=== PATIENT | female | born 1945 | race Caucasian/White ===

== ENCOUNTER 2017-01-26 12:43 | Outpatient (CLI) | payer MEDICARE ==
[2017-01-26 14:40] LABS: Mean Platelet Volume 7.8 fL (7.4-10.4); White Blood Cell (WBC) Count 4.9 thou/uL (4.8-10.8)
[2017-01-26 14:42] LABS: Prothrombin Time 18.5 SEC (12.0-14.7)
[2017-01-26 14:51] LABS: Anion Gap 10 mmol/L (10-20); BUN (Urea Nitrogen) 20 mg/dL (9.8-20.1); Calc. Creatinine Clearance 0 mL/min (70-130); Calcium 9.1 mg/dL (7.8-10.44); Carbon Dioxide 27 mmol/L (23-31); Chloride 108 mmol/L (98-107); Estimated GFR-MDRD 73
== END 2017-01-26 12:44 | disposition home or self-care (01) ==
LOC: LABBT 12:43
PROVIDERS: ATTEND Internal Medicine Cardiovascular Disease
DX: Z01.812 Encounter for preprocedural laboratory examination (principal); Z51.81 Encounter for therapeutic drug level monitoring; I48.0 Paroxysmal atrial fibrillation; Z79.01 Long term (current) use of anticoagulants
CPT/HCPCS: 80048; 85027; 85610

== ENCOUNTER 2017-01-28 06:47 | Day surgery (SDC) | payer MEDICARE ==
[2017-01-26 13:08] VITALS: BMI 35.2
[2017-01-28] MEDS ORDERED: Diprivan 40 ML ONE (08:20)
[2017-01-28] MEDS ORDERED: Propofol 200 MG/20 ML VIAL ONE (09:12)
[2017-01-28] MEDS ORDERED: Furosemide 40 MG/4 ML VIAL ONE (09:28)
== END 2017-01-28 10:34 | disposition home or self-care (01) ==
LOC: CCL 06:47
PROVIDERS: ATTEND Internal Medicine Cardiovascular Disease
DX: I48.0 Paroxysmal atrial fibrillation (principal); I10 Essential (primary) hypertension; G25.81 Restless legs syndrome; E78.00 Pure hypercholesterolemia, unspecified; Z88.0 Allergy status to penicillin; Z88.1 Allergy status to other antibiotic agents; Z88.8 Allergy status to other drugs, medicaments and biological substances; Z79.82 Long term (current) use of aspirin; Z79.899 Other long term (current) drug therapy; Z90.49 Acquired absence of other specified parts of digestive tract; Z90.710 Acquired absence of both cervix and uterus; Z96.652 Presence of left artificial knee joint; Z96.1 Presence of intraocular lens; Z98.890 Other specified postprocedural states; Z85.820 Personal history of malignant melanoma of skin
CPT/HCPCS: 92960; 93312; 96374; J1940; J2704

== ENCOUNTER 2017-02-07 08:58 | Outpatient (CLI) | payer MEDICARE ==
--- NOTE | 2017-02-07 12:16 | MMO ---
BILATERAL DIGITAL SCREENING MAMMOGRAMS: Date: 02/07/17 This patient's mammogram was interpreted with the assistance of computer-aided detection. Comparison made with exams of 07/23/15, 06/26/14, and 05/01/13. FINDINGS: There are mild scattered fibroglandular densities with benign-appearing calcifications. No suspiciou s masses or calcifications are seen. IMPRESSION: BIRADS 2: Benign Finding(s) Return to annual mammographic screening. POS: [facility]
== END 2017-02-07 08:59 | disposition home or self-care (01) ==
LOC: MAMMO 08:58
PROVIDERS: ATTEND Internal Medicine
DX: Z12.31 Encounter for screening mammogram for malignant neoplasm of breast (principal)
CPT/HCPCS: 77067; G0202

== ENCOUNTER 2017-09-07 12:36 | Outpatient (CLI) | payer MEDICARE | END 2017-09-07 12:37 | disposition home or self-care (01) | LOC: BICMAMMO 12:36 | PROVIDERS: ATTEND Family Medicine | DX: Z13.820 Encounter for screening for osteoporosis (principal); M81.0 Age-related osteoporosis without current pathological fracture; M85.852 Other specified disorders of bone density and structure, left thigh | CPT/HCPCS: 77080 ==

== ENCOUNTER 2017-10-05 07:30 | Day surgery (SDC) | payer MEDICARE ==
[2017-10-04 12:00] VITALS: BMI 32.3
--- NOTE | 2017-10-05 00:45 | HP ---
SHORT STAY HISTORY AND PHYSICAL DATE OF ADMISSION: 10/05/2017 HISTORY OF PRESENT ILLNESS: This is a 72-year-old female comes for a colonoscopy because of history of colon polyp from before and also has history of intermittent diarrhea. The patient had two colono scopies in the past. The last one was in 2006. She had 2 colon polyps removed at that time. The pa suhas did not come back for a colonoscopy afterwards. The patient has history of diarrhea off and on . The diarrhea is intermittent. The stools are watery and has had rectal bleeding. She also had ab dominal bloating, abdominal swelling. She comes for a colonoscopy because of history of colon polyp and also diarrhea. ALLERGIES: None. SOCIAL HISTORY: The patient does not smoke. No history of any alcohol abuse. MEDICAL ILLNESSES: 1. Hypertension. 2. Atrial fibrillation. 3. Osteoarthritis. 4. Colon polyp. 5. Hysterectomy. 6. Appendectomy. 7. Cholecystectomy. 8. Left knee replacements. PHYSICAL EXAMINATION: VITAL SIGNS: Pulse is 70, blood pressure 150/80. HEENT: Conjunctivae clear. CARDIOVASCULAR SYSTEM: First and second heart sounds normal. LUNGS: Clear to auscultation. ABDOMEN: Soft to palpate. No organomegaly. No tenderness. No masses. ADMITTING DIAGNOSES: 1. Colon polyp. 2. Intermittent diarrhea. PLAN: Colonoscopy.
--- NOTE | 2017-10-05 12:23 | OP ---
DATE OF PROCEDURE: 10/05/2017 SURGEON: Silva Colin M.D. OPERATIVE PROCEDURE: 1. Colonoscopy with biopsy. 2. Colonoscopy with polypectomy. PREOPERATIVE DIAGNOSES: 1. Colon polyp. 2. Intermittent diarrhea. POSTOPERATIVE DIAGNOSES: 1. Sessile polyp ascending colon x2. 2. Sessile polyp sigmoid colon. 3. No colitis seen. The exam was done to the terminal ileum. PROCEDURE NOTE: The patient was placed on her left lateral position and was given sedation by Anesth esia Department. A rectal exam was done before the scope was advanced into the rectum. No lesion fe lt on rectal exam. A Pentax video colonoscope was introduced into the rectum and advanced all of the cecum. The patient has some fecal ____ ____. The mucosa appears normal throughout the colon with n ormal vascular pattern. No colitis seen. The appendical opening, ileocecal valve, cecum well seen. No pathology seen. The scope was advanced to the terminal ileum. In the ileum mucosa appeared norm al. There were 2 small sessile polyps in the ascending colon. Both removed with biopsy forceps. Wi thdrawal of scope in the cecum and ascending colon, hepatic flexure, transverse colon, splenic flexur e, descending colon, no other pathology seen. A sessile sigmoid polyp was removed with cautery. The rectum showed hemorrhoids. Random biopsies obtained in the ascending colon, transverse colon, also, descending colon, sigmoid colon to rule out microscopic colitis. DISCHARGE PLANNING: A 72-year-old female who came in for colonoscopy because of history of colon polyp and also diarrhea. The colonoscopy showed no colitis. She had 2 ascending colon polyps and 1 sigmoid polyp removed. DISCHARGE RECOMMENDATIONS: 1. She was advised to call me if she develops abdominal pain, hematochezia. 2. Metamucil once a day. 3. To come back to clinic in 2 weeks.
== END 2017-10-05 11:22 | disposition home or self-care (01) ==
LOC: SDC 07:30
PROVIDERS: ATTEND Internal Medicine Gastroenterology
PROC: 0DBK8ZX Excision of Ascending Colon, Via Natural or Artificial Opening Endoscopic, Diagnostic (ICD-10-PCS; principal; 2017-10-05)
PROC: 0D5N8ZZ Destruction of Sigmoid Colon, Via Natural or Artificial Opening Endoscopic (ICD-10-PCS; 2017-10-05)
DX: D12.2 Benign neoplasm of ascending colon (principal); D12.5 Benign neoplasm of sigmoid colon; I10 Essential (primary) hypertension; I48.91 Unspecified atrial fibrillation; M19.90 Unspecified osteoarthritis, unspecified site; Z90.49 Acquired absence of other specified parts of digestive tract; Z88.0 Allergy status to penicillin; Z88.8 Allergy status to other drugs, medicaments and biological substances; Z79.899 Other long term (current) drug therapy; Z79.52 Long term (current) use of systemic steroids
CPT/HCPCS: 88305

== ENCOUNTER 2017-11-17 16:48 | Observation (INO) | payer MEDICARE ==
[2017-11-17 17:27] LABS: #Eosinphils 0.1 thou/uL (0.0-0.7); #Lymphocytes 0.9 thou/uL (1.20-3.40); #Monocytes 0.4 thou/uL (0.11-0.59); #Neutrophils 3.4 thou/uL (1.40-6.50); %Basophils 0.8 % (0.0-1.0); %Eosinophils 3.1 % (0.0-10.0); %Lymphocytes 18.5 % (21.0-51.0); %Monocytes 8.7 % (0.0-10.0); Mean Corpuscular HGB CONC 35.3 g/dL (32.0-36.0); Mean Corpuscular Hemoglobin 33.2 pg (27.0-31.0); Mean Corpuscular Volume 94.2 fL (78.0-98.0); Mean Platelet Volume 7.1 fL (7.4-10.4); Platelet Count 166 thou/uL (130-400); RBC Distribution Width 15.5 % (11.5-14.5); Red Blood Cell (RBC) Count 3.61 mill/uL (4.20-5.40); White Blood Cell (WBC) Count 4.9 thou/uL (4.8-10.8)
--- NOTE | 2017-11-17 17:28 | RAD ---
PORTABLE CHEST ONE VIEW 11/17/17 at 5:17 p.m. HISTORY: Shortness of breath and chest pain. FINDINGS: Comparison is made with exam of 10/11/16. The heart size is normal. The aorta is tortuous. The lungs are expanded without focal areas of consol idation, pneumothorax or pleural effusions. IMPRESSION: No radiographic evidence of acute cardiopulmonary process. POS: [facility]
[2017-11-17 17:50] LABS: ALT (SGPT) 17 U/L (8-55); AST (SGOT) 17 U/L (5-34); Albumin 4.5 g/dL (3.4-4.8); Alkaline Phosphatase 56 U/L (40-150); Anion Gap 14 mmol/L (10-20); BUN (Urea Nitrogen) 22 mg/dL (9.8-20.1); Bilirubin, Total 1.3 mg/dL (0.2-1.2); Calc. Creatinine Clearance 0 mL/min (70-130); Carbon Dioxide 23 mmol/L (23-31); Chloride 107 mmol/L (98-107); Estimated GFR-MDRD 54; Globulin 2.8 g/dL (2.4-3.5); Glucose 94 mg/dL (83-110); Potassium 4.4 mmol/L (3.5-5.1); Protein, Total 7.3 g/dL (6.0-8.3); Sodium 140 mmol/L (136-145)
[2017-11-17 17:54] LABS: CKMB 1.1 ng/mL (0-6.6); Troponin I Less than 0.010 ng/mL (< 0.028)
[2017-11-17] MEDS ORDERED: Nitroglycerin 2% Ointment 1 INCH/1 GM Packet ONE ×2 (18:52→19:49)
--- NOTE | 2017-11-17 19:15 | PDOC.FPRHP ---
- History of Present Illness Chief Complaint: tight chest, feeling weak History of Present Illness: 72 yo F with PMH of Afib, HTN, GERD, HLD, who presented for substernal chest tightness, or "squeezing of my chest" and generalized weakness. The feeling started around 1400 today while she was doing a puzzle, and she felt like she couldn't catch her breath. Pain was 8/10. The pain radiated to her left shoulder blade. Nothing made the pressure worse, nothing made it better. It was non-exertional, not improved with nitro. The pressure improved minimally since it started. Denied headache, nausea/vom, or diaphoresis. She said she had an episode like this a few months ago but it didn't last long. Denied hx of COPD or asthma. Denied swelling in her legs. She denied CHF but she had prescription for furosemide PRN. Pt also precribed Flecainide. In ED: she received nitro paste and aspirin. CXR showed no acute cardiopulmonary process. EKG showed sinus rhythm with no ischemic changes. Pt sees retread technician, Dr. Stahl. In Jan of last year, BRISA showed EF was 55-60%. Cardiolite stress test in 09/2016: wall motion normal, no perfusion defects ED Course: EKG showed sinus rhythm, with left axis deviation and prolonged MI interval of 250 ms - Allergies/Adverse Reactions Allergies Allergy/AdvReac Type Severity Reaction Status Date / Time amoxicillin [From Augmentin] Allergy Nausea Verified 11/17/17 20:21 clavulanic acid Allergy Nausea Verified 11/17/17 20:21 [From Augmentin] nitrofurantoin Allergy Nausea Verified 11/17/17 20:21 [From Macrobid] - Home Medications Medication Instructions Recorded Confirmed Type Calcium Carbonate + Vit D 1 tab PO BID 04/16/13 11/17/17 History [Caltrate 600 + Vit D] Lisinopril 40 mg PO HS 04/16/13 11/17/17 History Magnesium Oxide [Magnesium] 400 mg PO QAM 04/16/13 11/17/17 History Multivitamin [Multivitamins] 1 cap PO DAILY 04/16/13 11/17/17 History Pantoprazole [Protonix] 40 mg PO DAILY 04/16/13 11/17/17 History Atorvastatin Calcium [Lipitor] 10 mg PO HS 10/11/16 11/17/17 History Acetaminophen [Tylenol] 500 mg PO Q6HR PRN 01/26/17 11/17/17 History Apixaban [Eliquis] 5 mg PO BID 01/26/17 11/17/17 History Gabapentin 300 mg PO HS 01/26/17 11/17/17 History Carvedilol [Carvedilol] 25 mg PO BID 10/04/17 11/17/17 History Furosemide [Furosemide] 40 mg PO PRN PRN 10/04/17 11/17/17 History Spironolactone [Spironolactone] 25 mg PO QAM 10/04/17 11/17/17 History Flecainide Acetate [Tambocor] 100 mg PO BID 11/17/17 11/17/17 History Pramipexole Di-HCl [Mirapex] 1.5 mg PO HS 11/17/17 11/17/17 History - History PMHx: GERD, HTN, a-fib, Restless leg syndrome, PSHx: Cholecystectomy, hysterectomy, cataract removal, basal cell carcinoma (on face), L total knee replacement, Vein removal L leg (for RLS) FHx: Sisters with Afib and one with CHF; Denies DM; lung cancer in brother ( smoker) and kidney cancer in father Social: Denies using tobacco, alcohol 1/mo or less, denies drug use - Review of Systems General: reports: fatigue, other (denies Headache). denies: fever/chills ENT: reports: other (post nasal drip/drainage, denies sore throat) Respiratory: reports: shortness of breath. denies: exercise intolerance Cardiovascular: reports: chest pain. denies: palpitation, edema Gastrointestinal: denies: nausea, vomiting, diarrhea, constipation Genitourinary: denies: dysuria Skin: denies: rashes Musculoskeletal: denies: swelling Neurological: reports: numbness (of toes, not of new onset), weakness Psychological: denies: anxiety, depression - Vital signs BP 154/61, P 62, R 18, T 99.2, O2 96% on RA - Physical Exam Constitutional: awake, alert and oriented, other (appears anxious) HEENT: normocephalic and atraumatic, PERRLA, MMM, good dention Neck: supple, other (cervical lymphadenopathy) Chest: other (Pain is reproducible over sternum) Heart: RRR, normal S1/S2, no murmurs/rubs/gallops, pulses present (2+ in upper and lower extremities), other (very small amount edema bilat in legs, chest pain reproducible on exam.) Lungs: CTAB, no respiratory distress, good air movement, no rales/rhonchi, no wheezing, no retractions Abdomen: soft, non-tender, bowel sounds present, other (rounded abdomen) Musculoskeletal: normal structure, normal tone Skin: no rash/lesions, good turgor, capillary refill <2 seconds Psychiatric: good judgment and insight, intact recent and remote memory, other ( anxious appearing) FMR H&P: Results - Labs Result Diagrams: 11/17/17 17:09 11/17/17 17:09 Lab results: WBC 4.9 thou/uL (4.8-10.8) 11/17/17 17:09 Hgb 12.0 g/dL (12.0-16.0) 11/17/17 17:09 Hct 34.0 % (36.0-47.0) L 11/17/17 17:09 MCV 94.2 fL (78.0-98.0) 11/17/17 17:09 Plt Count 166 thou/uL (130-400) 11/17/17 17:09 Neutrophils % 69.0 % (42.0-75.0) 11/17/17 17:09 Sodium 140 mmol/L (136-145) 11/17/17 17:09 Potassium 4.4 mmol/L (3.5-5.1) 11/17/17 17:09 Chloride 107 mmol/L (98-107) 11/17/17 17:09 Carbon Dioxide 23 mmol/L (23-31) 11/17/17 17:09 BUN 22 mg/dL (9.8-20.1) H 11/17/17 17:09 Creatinine 1.01 mg/dL (0.6-1.1) 11/17/17 17:09 Glucose 94 mg/dL (83-110) 11/17/17 17:09 Calcium 9.0 mg/dL (7.8-10.44) 11/17/17 17:09 Total Bilirubin 1.3 mg/dL (0.2-1.2) H 11/17/17 17:09 AST 17 U/L (5-34) 11/17/17 17:09 ALT 17 U/L (8-55) 11/17/17 17:09 Alkaline Phosphatase 56 U/L (40-150) 11/17/17 17:09 CK-MB (CK-2) 1.1 ng/mL (0-6.6) 11/17/17 17:09 B-Natriuretic Peptide 191.0 pg/mL (0-100) H 11/17/17 17:09 Serum Total Protein 7.3 g/dL (6.0-8.3) 11/17/17 17:09 Albumin 4.5 g/dL (3.4-4.8) 11/17/17 17:09 - EKG Interpretation EKG: EKG: sinus with Left axis deviation and prolonged MI interval FMR H&P: A/P - Problem List (1) Atypical chest pain Current Visit: Yes Status: Acute Code(s): R07.89 - OTHER CHEST PAIN (2) HTN (hypertension) Current Visit: Yes Status: Chronic Code(s): I10 - ESSENTIAL (PRIMARY) HYPERTENSION (3) HLD (hyperlipidemia) Current Visit: Yes Status: Chronic Code(s): E78.5 - HYPERLIPIDEMIA, UNSPECIFIED (4) Paroxysmal A-fib Current Visit: Yes Status: Chronic Code(s): I48.0 - PAROXYSMAL ATRIAL FIBRILLATION (5) Restless leg Current Visit: Yes Status: Chronic (6) GERD (gastroesophageal reflux disease) Current Visit: Yes Status: Chronic Code(s): K21.9 - GASTRO-ESOPHAGEAL REFLUX DISEASE WITHOUT ESOPHAGITIS - Plan 72 yo F with PMH of Afib, HTN, GERD, HLD who presented with Atypical chest pain Atypical Chest pain - Heart score of 4, pain was substernal but reproducible on exam, non-exertional , not improved with nitro. Risk factors include HTN, HLD, age 72, and obesity. - NPO @ midnight, hold beta blockers for possible stress test in the AM - CXR showed no acute pulmonary process - 01/2017: BRISA showed EF was 55-60%. - cardiolite stress test in 09/2016: wall motion normal, no perfusion defects - TSH pending, trop neg x1, CKMB neg. BNP 191, not suggestive of CHF - Patient is on Flecainide, not sure why at this time. Will look further into her history. - Consult cardiology in the AM, appreciate recommendations. Atrial Fibrillation (paroxysmal) -Hx of Afib, on eliquis -EKG showed sinus rhythm in ED Left Leg swelling 2/2 vein removal -Left leg slightly larger than right, pt gives history of vein removal for RLS RLS -Continue home medications GERD -protonix HTN, HLD -Continue home meds Dr. Mallory Paredes, PGY-1 FMR H&P: Upper Level - Pertinent history 72M presents for chest pain. It is associated with dyspnea, substernal pain, 8/ 10, radiating toward left shoulder, not worse with exertion, not relieved by nitro or rest, started 6 hour prior to this interview and has been ongoing since then, waxing and waning in quality. In the ER, she received 324 aspirin and 1 inch nitro paste. PMHx: Obesity, Chronic A Fib, HTN, Restless leg syndrome, venous insufficency, GERD PSHx: Cholecystectomy, hysterectomy, left knee sx Allergies: Amoxicillin, macrobid - Nausea Meds: See media intern note Social: Social alcohol use FH: Sisters with CHF/A fib ROS: Gen: Denies fever, chills CV: Denies palpitation, endorse chest pain Resp: Endorses SOB, denies cough GI: Denies abd distention Ext: Denies edema - Pertinent findings Gen: Obese appearing, NAD HEENT: Normocephalic, moist mucosal membrane CV: RRR with no m/g/r. No apparent dysrhythmia. Reproducible substernal pain on palpation. Resp: CTA, no crackles GI: Round abdomen, normoactive, not tender Derm: No obvious lesion Ext: Trace edema Neuro: No focal deficit Psych: Grossly alert and oriented BNP: 191 Trop: Neg x2 CXR: No effusion or acute process EKG: No blocks, st changes or a fib noted. Echo in 2017: 55-60% EF, no LV dysfunction Stress test in 2017: No reversible defects, normal stress - Plan Date/Time: 11/17/171909 I, [Jose Ly], have evaluated this patient and agree with findings/plan as outlined by media intern resident. Pertinent changes/additions are listed here. 1. Atypical chest pain - Unlikely to be CHF, PE, Pneumonia. No afib noted on EKG and patient had continued symptom at time - Possible costochondritis. - Plan, hold carvedilol, schedule for possible stress test tomorrow, continue trop x3. Obtain TSH 2. HLD: Chronic issue, continue statin 3. HTN: Chronic issue, continue home med 4. GERD: Chronic issue, continue home med 5. Restless Leg Syndrome: Chronic issue, Continue home med 6. Paroxysmal A Fib: See problem 1. Continue home medication. Monitor on Tele floor. 7. PPx: Patient on elliquis for a fib. Attending Addendum - Attending Addendum Date/Time: 11/17/17 8631 I personally evaluated the patient and discussed the management with Dr. Paredes. I agree with the History, Examination, Assessment and Plan documented above with any addition or exceptions noted below.
[2017-11-17] MEDS ORDERED: Acetaminophen 325 MG TAB PO PRN (19:47)
[2017-11-17] MEDS ORDERED: Nitroglycerin 0.4 MG TAB (25 Tab Bottle) PO PRN (19:47)
[2017-11-17 20:35] VITALS: BMI 33.0
[2017-11-17 20:53] LABS: Troponin I Less than 0.010 ng/mL (< 0.028)
[2017-11-17] MEDS ORDERED: Gabapentin 300 MG CAP PO SCH (21:00)
[2017-11-17] MEDS ORDERED: Lisinopril 20 MG TAB PO SCH (21:00)
[2017-11-17] MEDS ORDERED: Pramipexole Di-HCl 1 MG TAB PO SCH (21:00)
[2017-11-17] MEDS ORDERED: Atorvastatin Calcium 10 MG TAB PO SCH (21:00)
[2017-11-17] MEDS: Apixaban 5 MG TAB PO SCH (21:02)
[2017-11-17] MEDS: Flecainide 50 MG TAB PO SCH (21:02)
[2017-11-17 23:49] LABS: Troponin I Less than 0.010 ng/mL (< 0.028)
--- NOTE | 2017-11-17 23:58 | PDOC.EVN ---
Event Note - Event Note Event Note: Date/Time: 11/17/17 5859 I personally evaluated the patient and discussed the management with Dr. Paredes. I agree with the History, Examination, Assessment and Plan. H&P is pending. I will review and sign when available.
[2017-11-18 05:30] LABS: #Eosinphils 0.2 thou/uL (0.0-0.7); #Lymphocytes 1.2 thou/uL (1.20-3.40); #Monocytes 0.6 thou/uL (0.11-0.59); #Neutrophils 2.9 thou/uL (1.40-6.50); %Basophils 0.2 % (0.0-1.0); %Eosinophils 3.8 % (0.0-10.0); %Lymphocytes 25.5 % (21.0-51.0); %Monocytes 11.2 % (0.0-10.0); %Neutrophils 59.3 % (42.0-75.0); Hemoglobin 10.7 g/dL (12.0-16.0); Mean Corpuscular HGB CONC 34.2 g/dL (32.0-36.0); Mean Corpuscular Hemoglobin 32.5 pg (27.0-31.0); Mean Platelet Volume 7.2 fL (7.4-10.4); Platelet Count 147 thou/uL (130-400); RBC Distribution Width 15.6 % (11.5-14.5); Red Blood Cell (RBC) Count 3.28 mill/uL (4.20-5.40); White Blood Cell (WBC) Count 4.9 thou/uL (4.8-10.8)
[2017-11-18 05:47] LABS: Anion Gap 15 mmol/L (10-20); BUN (Urea Nitrogen) 26 mg/dL (9.8-20.1); Calc. Creatinine Clearance 85 mL/min (70-130); Calcium 8.7 mg/dL (7.8-10.44); Carbon Dioxide 24 mmol/L (23-31); Chloride 106 mmol/L (98-107); Estimated GFR-MDRD 65; Glucose 92 mg/dL (83-110); Potassium 4.4 mmol/L (3.5-5.1); Sodium 141 mmol/L (136-145)
[2017-11-18] MEDS ORDERED: Calcium Carbonate + Vit D 1 TAB PO SCH (08:00)
[2017-11-18] MEDS ORDERED: Spironolactone 25 MG TAB PO SCH (08:00)
--- NOTE | 2017-11-18 08:56 | PDOC.FM ---
Addendum entered and electronically signed by Morro Vicente DO 11/18/17 09: 25: Spoke with chief engineering division, normal stress w/in year. Recommend no repeat at this time. Will continue to monitor Hgb, given drop and slight bump in BUN, more suspicious for upper GI source. Cont to monitor. Original Note: - Subjective Subjective: No acute events overnight. Pt reports mild improvement of cp. She states that the 2nd dose of nitro helped a little. Has persistent TTP epigastric/lower sternal border. Has associated SOB with deep inspiration. Pain non-positional. Denies sob, diaphoresis, NVDC. Denies BRBPR and melena. H/o gerd, on pantoprazole. General weakness has resolved. - Objective Vital Signs & Weight: Vital Signs (12 hours) Temp Pulse Resp BP Pulse Ox 11/18/17 07:38 98.9 F 71 16 11/18/17 07:32 98.9 F 71 16 157/69 H 96 11/18/17 04:17 98.6 F 64 16 142/63 H 95 11/17/17 23:18 98.9 F 62 16 109/55 L 93 L Weight Weight 92.986 kg I&O: 11/17/17 11/18/17 11/19/17 06:59 06:59 06:59 Intake Total 420 Output Total 300 Balance 120 Result Diagrams: 11/18/17 04:52 11/18/17 04:52 <Morro Vicente - Last Filed: 11/18/17 08:54> - Objective Vital Signs & Weight: Vital Signs (12 hours) Temp Pulse Resp BP Pulse Ox 11/18/17 07:38 98.9 F 71 16 11/18/17 07:32 98.9 F 71 16 157/69 H 96 11/18/17 04:17 98.6 F 64 16 142/63 H 95 11/17/17 23:18 98.9 F 62 16 109/55 L 93 L Weight Weight 92.986 kg I&O: 11/17/17 11/18/17 11/19/17 06:59 06:59 06:59 Intake Total 420 Output Total 300 Balance 120 Result Diagrams: 11/18/17 04:52 11/18/17 04:52 <Jeremy Berumen - Last Filed: 11/18/17 10:33> Phys Exam - Physical Examination Constitutional: NAD HEENT: PERRLA, sclera anicteric Neck: no nodes, no JVD Respiratory: no wheezing, no rales, no rhonchi, clear to auscultation bilateral Cardiovascular: RRR, no significant murmur, no rub Gastrointestinal: soft, non-tender, no distention, positive bowel sounds Musculoskeletal: pulses present, edema present b/l left worse than right Neurological: non-focal, moves all 4 limbs Psychiatric: normal affect Skin: no rash, normal turgor, cap refill <2 seconds Deviation from normal: senile purpura b/l UE <Morro Vicente - Last Filed: 11/18/17 08:54> Dx/Plan (1) Atypical chest pain Code(s): R07.89 - OTHER CHEST PAIN Status: Acute (2) GERD (gastroesophageal reflux disease) Code(s): K21.9 - GASTRO-ESOPHAGEAL REFLUX DISEASE WITHOUT ESOPHAGITIS Status: Chronic (3) HLD (hyperlipidemia) Code(s): E78.5 - HYPERLIPIDEMIA, UNSPECIFIED Status: Chronic (4) HTN (hypertension) Code(s): I10 - ESSENTIAL (PRIMARY) HYPERTENSION Status: Chronic (5) Paroxysmal A-fib Code(s): I48.0 - PAROXYSMAL ATRIAL FIBRILLATION Status: Chronic - Plan Plan: Atypical Chest pain - cardiology consult, appreciate recs - given epigastric location/lower sternal border and slight decrease in Hg/Hct overnight, will check FOBT and give one time dose of GI cockatail, reassess following administration - last stress >1yr ago, repeat. Atrial Fibrillation (paroxysmal) -Hx of Afib, on eliquis -EKG showed sinus rhythm in ED - RRR on exam, cont home meds Left Leg swelling 2/2 vein removal -Left leg slightly larger than right, pt gives history of vein removal for RLS - persistent LE swelling, known h/o of venous stasis on left - on anticoagulation RLS -Continue home medications GERD -protonix - GI cocktail - trend h/h HTN, HLD -Continue home meds Dispo: stress today, consult cards, appreciate recommendations. GI cocktail for epigastric/lower sternal pain and FOBT to r/o GI bleed. <Morro Vicente - Last Filed: 11/18/17 08:54> Attending Addendum - Attending Addendum Date/Time: 11/18/17 1031 I personally evaluated the patient and discussed the management with Dr. Vicente I agree with the History, Examination, Assessment and Plan documented above with any addition or exceptions noted below.Patient for stress testing currently troponins negative agree with concern for GI bleed with decreased H/ H and elevated BUN repeat H/H ,check FOBT and GI evaluation prn hold DOAC if evidence GI bleeding. <Jeremy Berumen - Last Filed: 11/18/17 10:33>
[2017-11-18] MEDS ORDERED: Magnesium Oxide 400 MG TAB PO SCH (09:00)
[2017-11-18] MEDS ORDERED: ADENOSINE 60 MG/20 ML VIAL ONE (09:55)
[2017-11-18] MEDS ORDERED: Lidocaine 2% Viscous Solution 10 ML, Aluminum & Magnesium Hydroxide 30 ML SSW SCH (10:00)
[2017-11-18] MEDS: Flecainide 50 MG TAB PO SCH (10:49)
[2017-11-18 10:57] LABS: Hemoglobin 11.4 g/dL (12.0-16.0); Mean Corpuscular HGB CONC 33.5 g/dL (32.0-36.0); Mean Corpuscular Hemoglobin 31.9 pg (27.0-31.0); Mean Corpuscular Volume 95.2 fL (78.0-98.0); Mean Platelet Volume 7.2 fL (7.4-10.4); Platelet Count 149 thou/uL (130-400); RBC Distribution Width 15.7 % (11.5-14.5); Red Blood Cell (RBC) Count 3.59 mill/uL (4.20-5.40); White Blood Cell (WBC) Count 4.9 thou/uL (4.8-10.8)
--- NOTE | 2017-11-18 14:58 | NM ---
RADIONUCLIDE STRESS ONLY CARDIAC PERFUSION SCAN WITH CT ATTENUATION CORRECTION AND SPECT IMAGING: LEFT VENTRICULAR WALL MOTION EVALUATION AND EJECTION FRACTION: HISTORY: Chest pain. FINDINGS: Adenosine protocol. There is homogeneous uptake of radiotracer throughout the left ventricular myoca rdium. QGS analysis of gated SPECT images show no focal wall motion abnormalities. Left ventricular ejectio n fraction is calculated at 77%. IMPRESSION: Normal myocardial perfusion stress only examination. Normal left ventricular ejection fraction. POS: [facility]
[2017-11-18 15:06] LABS: Hemoglobin 11.4 g/dL (12.0-16.0); Mean Corpuscular HGB CONC 35.2 g/dL (32.0-36.0); Mean Corpuscular Hemoglobin 33.1 pg (27.0-31.0); Mean Corpuscular Volume 93.8 fL (78.0-98.0); Mean Platelet Volume 6.8 fL (7.4-10.4); Platelet Count 149 thou/uL (130-400); RBC Distribution Width 15.5 % (11.5-14.5); Red Blood Cell (RBC) Count 3.44 mill/uL (4.20-5.40); White Blood Cell (WBC) Count 5.4 thou/uL (4.8-10.8)
[2017-11-18] MEDS: Apixaban 5 MG TAB PO SCH (16:02)
[2017-11-18 16:45] VITALS: BP 161/71; TEMP 98.5
== END 2017-11-18 16:54 | disposition home or self-care (01) ==
LOC: ERS 16:48 → 2SW 18:40
PROVIDERS: ADMIT Family Medicine; ATTEND Family Medicine
DX: R07.89 Other chest pain (principal); R53.1 Weakness; I10 Essential (primary) hypertension; K21.9 Gastro-esophageal reflux disease without esophagitis; G25.81 Restless legs syndrome; I48.0 Paroxysmal atrial fibrillation; E78.5 Hyperlipidemia, unspecified; Z79.01 Long term (current) use of anticoagulants; Z79.899 Other long term (current) drug therapy; Z88.0 Allergy status to penicillin; Z88.1 Allergy status to other antibiotic agents; Z88.8 Allergy status to other drugs, medicaments and biological substances
CPT/HCPCS: 71045; 78452; 80048; 82553; 83880; 84484 ×2; 85025; 85027; 93005; 93017; 94760; 99285; A9500; G0378 ×2; 36415; 80053; 84443; J0153

== ENCOUNTER 2018-02-14 12:04 | Outpatient (CLI) | payer MEDICARE | END 2018-02-14 12:05 | disposition home or self-care (01) | LOC: BICMAMMO 12:04 | PROVIDERS: ATTEND Family Medicine | DX: Z12.31 Encounter for screening mammogram for malignant neoplasm of breast (principal) | CPT/HCPCS: 77063; 77067 ==

== ENCOUNTER 2019-01-05 09:37 | Outpatient (CLI) | payer MEDICARE ==
[2019-01-05 12:08] LABS: Mean Corpuscular HGB CONC 33.7 g/dL (32.0-36.0); Mean Corpuscular Hemoglobin 31.3 pg (27.0-31.0); Mean Corpuscular Volume 92.9 fL (78.0-98.0); Mean Platelet Volume 7.6 fL (7.4-10.4); Platelet Count 169 thou/uL (130-400); RBC Distribution Width 16.7 % (11.5-14.5); White Blood Cell (WBC) Count 4.6 thou/uL (4.8-10.8)
[2019-01-05 12:14] LABS: INR-International Normal Ratio 1.7; PTT 42.8 SEC (22.9-36.1); Prothrombin Time 19.5 SEC (12.0-14.7)
[2019-01-05 12:30] LABS: Anion Gap 15 mmol/L (10-20); BUN (Urea Nitrogen) 23 mg/dL (9.8-20.1); Calc. Creatinine Clearance 0 mL/min (70-130); Calcium 9.7 mg/dL (7.8-10.44); Carbon Dioxide 22 mmol/L (23-31); Chloride 106 mmol/L (98-107); Estimated GFR-MDRD 60; Glucose 159 mg/dL (83-110); Potassium 4.4 mmol/L (3.5-5.1); Sodium 139 mmol/L (136-145)
== END 2019-01-05 09:38 | disposition home or self-care (01) ==
LOC: LABBT 09:37
PROVIDERS: ATTEND Internal Medicine Cardiovascular Disease
DX: Z01.818 Encounter for other preprocedural examination (principal); I48.91 Unspecified atrial fibrillation
CPT/HCPCS: 80048; 85027; 85610; 85730; 93005; 93010

== ENCOUNTER 2019-01-10 08:45 | Day surgery (SDC) | payer MEDICARE ==
[2019-01-05 10:58] VITALS: BMI 33.9
[2019-01-10] MEDS ORDERED: PROPOFOL 20 ML ONE (09:45)
--- NOTE | 2019-01-11 09:02 | OP ---
DATE OF PROCEDURE: 01/10/2019 ADDITIONAL REFERRING PHYSICIAN: Jason Stahl MD. REASON FOR PROCEDURE: Ms. Dorsey is a 73-year-old woman who has history of symptomatic paroxysmal atrial fibrillation, bleeding ulcers, CHADS score of 4. She underwent a Watchman device placement as well as pulmonary venous isolation procedure on 11/30/2018. She is here for a followup. DESCRIPTION OF PROCEDURE: The patient received propofol by anesthesia specialist. After adequate level of sedation achieved, a standard transesophageal echocardiogram probe was passed into the esophagus without difficulty. The patient tolerated the procedure well. No complications noted. RESULTS: Left atrium is moderately enlarged about 5.2 cm in horizontal diameter. The left atrial appendage was well visualized, contains an adequately seated Watchman device. The Watchman device has significant opacification on the left atrial appendage side, suggestive of adequate thrombus formation in the left atrial appendage. There was no echo lucency noted. Color Doppler interrogation reveals no flow around Watchman device into the left atrial appendage. Four out of four pulmonary veins were visualized without stenosis. The interatrial septum was with a small defect at the site of the transseptal puncture, which is very restrictive. Moderate mitral regurgitation is seen. Left ventricular systolic function is preserved. The right-sided chamber is nondilated. Mild tricuspid regurgitation seen. Pericardial space without effusion. The pulmonic valve was not well visualized. Aortic valve is 3 leaflets without regurgitation or stenosis. The visualized portion of ascending and descending aorta without aneurysm, dissection, or significant atheroma. CONCLUSION: 1. Adequately placed Watchman device without geoff-device leak detected. 2. Moderate left atrial enlargement. 3. Normal left ventricular systolic function. 4. Moderate mitral and [id number] tricuspid regurgitation. PLAN: Continue oral anticoagulation for 3 months post ablation, then likely transition to aspirin and Plavix for remainder of 6 months post implant of the Watchman device. Job ID: [id number] [facility]
== END 2019-01-10 11:49 | disposition home or self-care (01) ==
LOC: CCL 08:45
PROVIDERS: ATTEND Internal Medicine Cardiovascular Disease
PROC: B24BZZ4 Ultrasonography of Heart with Aorta, Transesophageal (ICD-10-PCS; principal; 2019-01-10)
DX: I48.0 Paroxysmal atrial fibrillation (principal); I08.1 Rheumatic disorders of both mitral and tricuspid valves; Z79.83 Long term (current) use of bisphosphonates; Z79.899 Other long term (current) drug therapy; Z88.0 Allergy status to penicillin; Z88.1 Allergy status to other antibiotic agents; Z95.818 Presence of other cardiac implants and grafts; Z98.890 Other specified postprocedural states
CPT/HCPCS: 93312; J2704

== ENCOUNTER 2019-03-08 11:53 | Outpatient (CLI) | payer MEDICARE ==
--- NOTE | 2019-03-08 12:48 | MMO ---
Bilateral MAMMO Bilat Screen [facility]. CLINICAL HISTORY: Patient is 73 years old and is seen for screening. The patient has no family history of breast cancer. The patient has no personal history of cancer. VIEWS: The views performed were: bilateral craniocaudal with tomosynthesis and bilateral mediolateral oblique with tomosynthesis. FILMS COMPARED: The present examination has been compared to prior imaging studies performed at [facility] on 04/02/2002, 06/07/2003, 06/22/2004 and 02/14/2018. This study has been interpreted with the assistance of computer-aided detection. MAMMOGRAM FINDINGS: There are scattered fibroglandular densities. There are stable benign appearing calcifications seen in both breasts. There are also vascular calcifications. There are no suspicious masses, suspicious calcifications, or new areas of architectural distortion. IMPRESSION: THERE IS NO MAMMOGRAPHIC EVIDENCE OF MALIGNANCY. A ROUTINE FOLLOW-UP MAMMOGRAM IN 1 YEAR IS RECOMMENDED. THE RESULTS OF THIS EXAM WERE SENT TO THE PATIENT. ACR BI-RADS Category 2 - Benign finding MAMMOGRAPHY NOTE: 1. A negative mammogram report should not delay a biopsy if a dominant of clinically suspicious mass is present. 2. Approximately 10% to 15% of breast cancers are not detected by mammography. 3. Adenosis and dense breasts may obscure an underlying neoplasm. Reported by: RENZO BUCKLEY MD Electonically Signed: [id number]
== END 2019-03-08 11:54 | disposition home or self-care (01) ==
LOC: BICMAMMO 11:53
PROVIDERS: ATTEND Family Medicine
DX: Z12.31 Encounter for screening mammogram for malignant neoplasm of breast (principal)
CPT/HCPCS: 77063; 77067

== ENCOUNTER 2019-04-03 07:31 | Outpatient (CLI) | payer MEDICARE ==
--- NOTE | 2019-04-03 11:52 | CT ---
CT angiogram chest with IV contrast and 3-D imaging HISTORY: Atrial fibrillation. Left atrial WatchMan device. Evaluate for leak. FINDINGS: There is good contrast opacification pulmonary arteries and thoracic aorta. Normal branchin g of the great vessels at the aortic arch. Metallic wire device at the base of the left atrial appendage is consistent with the watchman device. The more peripheral portion of the left atrial appendage is hypodense, without contrast material evident. Subtle hyperdensity is associated with metallic knee hardening artifact from the device and motion. No evidence of mediastinal adenopathy or fluid. Minimal atelectasis at the lung bases. Calcified granulomata are consistent with healed granulomatous disease. No pneumothorax or lobar consolidation. IMPRESSION: Watchman left atrial appendage occlusion device in place with good apparent function. No evidence of leak.
[2019-04-03] MEDS ORDERED: Iopamidol 370 76% 100 ML VIAL ONE (13:38)
== END 2019-04-03 07:32 | disposition home or self-care (01) ==
LOC: CT 07:31
PROVIDERS: ATTEND Internal Medicine Cardiovascular Disease
DX: R06.02 Shortness of breath (principal); I48.91 Unspecified atrial fibrillation
CPT/HCPCS: 36415; 71275; 82565; 84520; Q9967

== ENCOUNTER 2019-06-01 10:04 | Day surgery (SDC) | payer MEDICARE ==
[2019-05-31 13:29] VITALS: BMI 33.9
[2019-06-01 11:01] LABS: #Eosinphils 0.1 thou/uL (0.0-0.7); #Lymphocytes 0.9 thou/uL (1.20-3.40); #Monocytes 0.5 thou/uL (0.11-0.59); #Neutrophils 4.4 thou/uL (1.40-6.50); %Basophils 0.6 % (0.0-1.0); %Lymphocytes 15.4 % (21.0-51.0); %Monocytes 8.9 % (0.0-10.0); %Neutrophils 73.2 % (42.0-75.0); Mean Corpuscular HGB CONC 34.6 g/dL (32.0-36.0); Mean Corpuscular Hemoglobin 32.5 pg (27.0-31.0); Mean Platelet Volume 8.1 fL (7.4-10.4); Platelet Count 178 thou/uL (130-400); RBC Distribution Width 16.9 % (11.5-14.5); Red Blood Cell (RBC) Count 3.38 mill/uL (4.20-5.40)
[2019-06-01 11:08] LABS: INR-International Normal Ratio 1.7; PTT 41.1 SEC (22.9-36.1); Prothrombin Time 20.3 SEC (12.0-14.7)
[2019-06-01 11:21] LABS: Anion Gap 13 mmol/L (10-20); BUN (Urea Nitrogen) 27 mg/dL (9.8-20.1); Calc. Creatinine Clearance 76 mL/min (70-130); Calcium 9.2 mg/dL (7.8-10.44); Carbon Dioxide 26 mmol/L (23-31); Chloride 106 mmol/L (98-107); Estimated GFR-MDRD 57; Glucose 108 mg/dL (83-110); Potassium 3.8 mmol/L (3.5-5.1); Sodium 141 mmol/L (136-145)
[2019-06-01] MEDS ORDERED: PROPOFOL 20 ML ONE (11:53)
--- NOTE | 2019-06-01 20:03 | OP ---
DATE OF PROCEDURE: 06/01/19 PROCEDURE DIAGNOSIS: Atrial fibrillation symptomatic. SUMMARY: The patient is a pleasant 74-year-old female who comes to the outpatient area for planned BRISA cardiov ersion. She has been on anticoagulation for a long time. She has had a BRISA cardioversion before. She also has had an ablation before. She was loaded on Flecainide and she showed up still in atrial fibri llation today. She was given anesthesia by the anesthesiology department. Please see their notes for details. After adequate sedation was achieved, one single synchronized shock was delivered successfully conver ting him from atrial fibrillation into sinus rhythm. 100 joules used. The patient tolerated the proce dure well. RECOMMENDATIONS: 1. Continued full anticoagulation with Eliquis. 2. Flecainide at current dose. 3. Follow-up with EP for consideration of a redo ablation.
== END 2019-06-01 13:34 | disposition home or self-care (01) ==
LOC: CCL 10:04
PROVIDERS: ATTEND Internal Medicine Cardiovascular Disease
PROC: 5A2204Z Restoration of Cardiac Rhythm, Single (ICD-10-PCS; principal; 2019-06-01)
PROC: B24BZZ4 Ultrasonography of Heart with Aorta, Transesophageal (ICD-10-PCS; 2019-06-01)
DX: I48.0 Paroxysmal atrial fibrillation (principal); I10 Essential (primary) hypertension; E78.00 Pure hypercholesterolemia, unspecified; I83.893 Varicose veins of bilateral lower extremities with other complications; K27.9 Peptic ulcer, site unspecified, unspecified as acute or chronic, without hemorrhage or perforation; Z79.01 Long term (current) use of anticoagulants; Z79.899 Other long term (current) drug therapy; Z87.891 Personal history of nicotine dependence; Z88.0 Allergy status to penicillin; Z88.1 Allergy status to other antibiotic agents
CPT/HCPCS: 80048; 85025; 85610; 85730; 92960; J2704

== ENCOUNTER 2019-06-06 21:19 | Observation (INO) | payer MEDICARE ==
[2019-06-06 21:47] LABS: #Eosinphils 0.2 thou/uL (0.0-0.7); #Monocytes 0.5 thou/uL (0.11-0.59); %Basophils 0.7 % (0.0-1.0); %Eosinophils 3.5 % (0.0-10.0); %Monocytes 8.2 % (0.0-10.0); %Neutrophils 70.6 % (42.0-75.0); Hemoglobin 11.3 g/dL (12.0-16.0); Mean Corpuscular HGB CONC 33.8 g/dL (32.0-36.0); Mean Corpuscular Hemoglobin 31.8 pg (27.0-31.0); Mean Corpuscular Volume 94.1 fL (78.0-98.0); Mean Platelet Volume 8.1 fL (7.4-10.4); Platelet Count 193 thou/uL (130-400); RBC Distribution Width 16.6 % (11.5-14.5); Red Blood Cell (RBC) Count 3.54 mill/uL (4.20-5.40); White Blood Cell (WBC) Count 5.6 thou/uL (4.8-10.8)
[2019-06-06 22:08] LABS: ALT (SGPT) 17 U/L (8-55); AST (SGOT) 13 U/L (5-34); Albumin 4.3 g/dL (3.4-4.8); Alkaline Phosphatase 54 U/L (40-110); Anion Gap 13 mmol/L (10-20); BUN (Urea Nitrogen) 33 mg/dL (9.8-20.1); Bilirubin, Total 1.3 mg/dL (0.2-1.2); Calc. Creatinine Clearance 0 mL/min (70-130); Calcium 9.7 mg/dL (7.8-10.44); Carbon Dioxide 29 mmol/L (23-31); Chloride 105 mmol/L (98-107); Estimated GFR-MDRD 35; Globulin 2.7 g/dL (2.4-3.5); Glucose 134 mg/dL (83-110); Potassium 4.2 mmol/L (3.5-5.1); Sodium 143 mmol/L (136-145)
--- NOTE | 2019-06-06 23:24 | RAD ---
PORTABLE CHEST ONE VIEW: 06/06/19 at 10:12 p.m. HISTORY: Generalized weakness, tachycardia. FINDINGS/IMPRESSION: Comparison made with exam of 11/17/17. The heart size is borderline. The lungs are expanded without lobar consolidation, pneumothoraces, or pleural effusions. There is mild pulmonary vascular congestion. There is a Watchman device in the lef t atrial appendage. POS: OFF
[2019-06-07 01:10] LABS: Troponin I Less than 0.010 ng/mL (< 0.028)
--- NOTE | 2019-06-07 01:45 | PDOC.FPRHP ---
- History of Present Illness Chief Complaint: presyncope History of Present Illness: 74yo F with h/o Afib s/p attempted cardioversion on 06/01, HTN, GERD presents for episode of presyncope. Pt states at around 1999 she had acute episode of nausea, dizziness/lightheadedness, unsteadiness, and mild sob. Did not have any palpitations, LOC, or Fall. Checked her BP and found to be 80s/60s. No associated CP. Episode lasted approx 10-15min. Presented to ED for further eval. Has had no return of sxs and at baseline in ED. No recent illness, fever/ chills. Had attempted cardioversion for afib by Dr. Stahl on 06/01. States is due for outpatient stress test tomorrow. ED Course: Give 1L bolus. Admitted. - Allergies/Adverse Reactions Allergies Allergy/AdvReac Type Severity Reaction Status Date / Time amoxicillin [From Augmentin] Allergy Nausea Verified 05/31/19 13:30 clavulanic acid Allergy Nausea Verified 05/31/19 13:30 [From Augmentin] nitrofurantoin Allergy Nausea Verified 05/31/19 13:30 [From Macrobid] - Home Medications Medication Instructions Recorded Confirmed Type Calcium Carbonate + Vit D 1 tab PO BID 04/16/13 06/07/19 History [Caltrate 600 + Vit D] Lisinopril 40 mg PO HS 04/16/13 06/07/19 History Magnesium Oxide [Magnesium] 400 mg PO QAM 04/16/13 06/07/19 History Multivitamin [Multivitamins] 1 cap PO QAM 04/16/13 06/07/19 History Pantoprazole [Protonix] 40 mg PO QAM 04/16/13 06/07/19 History Atorvastatin Calcium [Lipitor] 10 mg PO HS 10/11/16 06/07/19 History Acetaminophen [Tylenol Extra 1,000 mg PO Q6HR PRN 01/26/17 06/07/19 History Strength] Apixaban [Eliquis] 5 mg PO BID 01/26/17 06/07/19 History Gabapentin 300 mg PO HS 01/26/17 06/07/19 History Carvedilol 25 mg PO BID 10/04/17 06/07/19 History Furosemide 40 mg PO DAILY PRN 10/04/17 06/07/19 History Flecainide Acetate [Tambocor] 100 mg PO BID 11/17/17 06/07/19 History Pramipexole Di-HCl [Mirapex] 1.5 mg PO HS 11/17/17 06/07/19 History Alendronate Sodium 1 tab PO Q7D 01/05/19 06/07/19 History hydrALAZINE [Apresoline] 25 mg PO BID 05/31/19 06/07/19 History - History PMHx:Afib s/p Watchman in Nov 2018 and Cardioversion 05/30/19. Previous ablation and cardioversion. H/o pepcid ulcer bleeds and GERD. HTN, Restlesslegs. PSHx: Watchman Nov 2018, Hyst, [place], Cataracts, L knee replacement FHx:sister with Afib Social: Lives alone. Social drinker, no Tob or illicits. - Review of Systems General: denies: fever/chills, weight/appetite/sleep changes, night sweats, fatigue Eyes: denies: vision changes ENT: denies: nasal congestion, rhinorrhea Respiratory: denies: cough, congestion, shortness of breath Cardiovascular: reports: edema (mild BL LE). denies: chest pain, palpitation, paroxysmal nocturnal dyspnea, orthopnea Gastrointestinal: reports: nausea. denies: vomiting, diarrhea, constipation, abdominal pain Genitourinary: denies: dysuria Skin: denies: rashes Neurological: denies: syncope - Vital signs BP: 109/61 HR: 84-118 RR: 15 Tmax: 98.5 Pox: 96% on RA Wt: 90kg - Physical Exam Constitutional: NAD, awake, alert and oriented, well developed HEENT: EOMI, conjunctiva clear, grossly normal vision, grossly normal hearing, MMM Neck: supple, trachea midline Heart: RRR, normal S1/S2, no murmurs/rubs/gallops, pulses present, other (1+ pitting BL) Lungs: CTAB, no respiratory distress, good air movement, no rales/rhonchi, no wheezing Abdomen: soft, non-tender, bowel sounds present, no masses/distention Musculoskeletal: normal structure, normal tone Neurological: no focal deficit Skin: no rash/lesions Psychiatric: normal mood and affect, good judgment and insight, intact recent and remote memory FMR H&P: Results - Labs Result Diagrams: 06/06/19 21:39 06/06/19 21:39 Lab results: WBC 5.6 thou/uL (4.8-10.8) 06/06/19 21:39 Hgb 11.3 g/dL (12.0-16.0) L 06/06/19 21:39 Hct 33.3 % (36.0-47.0) L 06/06/19 21:39 MCV 94.1 fL (78.0-98.0) 06/06/19 21:39 Plt Count 193 thou/uL (130-400) 06/06/19 21:39 Neutrophils % 70.6 % (42.0-75.0) 06/06/19 21:39 Sodium 143 mmol/L (136-145) 06/06/19 21:39 Potassium 4.2 mmol/L (3.5-5.1) 06/06/19 21:39 Chloride 105 mmol/L (98-107) 06/06/19 21:39 Carbon Dioxide 29 mmol/L (23-31) 06/06/19 21:39 BUN 33 mg/dL (9.8-20.1) H 06/06/19 21:39 Creatinine 1.46 mg/dL (0.6-1.1) H 06/06/19 21:39 Glucose 134 mg/dL (83-110) H 06/06/19 21:39 Lactic Acid 1.6 mmol/L (0.5-2.2) 06/06/19 22:25 Calcium 9.7 mg/dL (7.8-10.44) 06/06/19 21:39 Total Bilirubin 1.3 mg/dL (0.2-1.2) H 06/06/19 21:39 AST 13 U/L (5-34) 06/06/19 21:39 ALT 17 U/L (8-55) 06/06/19 21:39 Alkaline Phosphatase 54 U/L (40-110) 06/06/19 21:39 Serum Total Protein 7.0 g/dL (6.0-8.3) 06/06/19 21:39 Albumin 4.3 g/dL (3.4-4.8) 06/06/19 21:39 - EKG Interpretation EKG: Afib. Prolonged QTc of 497. L axis dev, no ST or T wave changes. Good R wave progression. - Radiology Interpretation Chest x-ray Status: image reviewed by me, report reviewed by me (Watchman present, mild pulm vascular congestion, no focal consolidation.) FMR H&P: A/P - Problem List (1) Paroxysmal A-fib Current Visit: Yes Status: Chronic Code(s): I48.0 - PAROXYSMAL ATRIAL FIBRILLATION (2) GERD (gastroesophageal reflux disease) Current Visit: Yes Status: Chronic Code(s): K21.9 - GASTRO-ESOPHAGEAL REFLUX DISEASE WITHOUT ESOPHAGITIS (3) HLD (hyperlipidemia) Current Visit: Yes Status: Chronic Code(s): E78.5 - HYPERLIPIDEMIA, UNSPECIFIED (4) HTN (hypertension) Current Visit: Yes Status: Chronic Code(s): I10 - ESSENTIAL (PRIMARY) HYPERTENSION (5) Restless leg Current Visit: Yes Status: Chronic - Plan 74yo F with h/o Afib s/p attempted cardioversion on 06/01, HTN, GERD presents for episode of presyncope and chronic afib #Presyncope with hypotension - suspected orthostatic hypotension vs sx Afib or Afib with RVR - current rate-controlled Afib while in ED with no further events - Will order orthostatic vitals - Held coreg for possible stress and lisinopril for TIMMY - monitor BP, may need adjustment of home meds - monitor on tele #Paroxysmal Afib - s/p Watchman 2018, cardioversion x2 (most recent 06/02/19) and ablation - Cont home meds, holding BB for possible stress - No RVR while in ED, will monitor on tele - Consider contacting Dr. Stahl in office for recs as patient states was scheduled for stress in AM, will make NPO and place order for stress in AM - cont home Eliquis #Prolonged QT - QTc of 497 - avoid QT prolonging meds #TIMMY on CKDII - Cr 1.46, appears baseline is 0.95 - holding lisinopril - suspect prerenal, will provide gently IVF hydration and monitor #GERD with h/o pepcid ulcer bleeds - on anticoagulation - cont home protonix - no s/s of acute bleed #Normocytic Anemia - Hb 11.3, RDW 16.6 - suspected anemia of chronic disease, will order iron studies, B12 and folate #Restless legs - cont home meds Code: Full PCP: Temo IVF: LR @ 120cc/hr Diet: NPO for possible stress VTE: Home Eliquis Disposition/LOS: Admit to tele obs for afib and presyncope. Contact cards in AM. Plan for stress in AM. Anticipate LOS <48hrs. FMR H&P: Upper Level - Pertinent history 74 year old female presents with an episode of light headedness and low BP to 80 's/60's at approximately 20:15 tonight. Patient states that the episode lasted for approximately 15 minutes and was associated with shortness of breath. She denies chest pain, palpitations. Patient states her BP is normally high. She did not endorse a Watchman procedure, but CXR reads that Watchman in left atrial appendage. Patient had cardioversion done by Dr. Stahl Tuesday. Per patient, she has a planned stress test with him tomorrow. Patient fearful to go home because she lives at home alone. Family present in patient's room. - Pertinent findings General: Alert and oriented x3. No acute distress. HEENT: MMM. Card: Irregularly irregular rhythm. No appreciable murmur. Resp: CTA bilaterally, no acute respiratory distress Neuro: No focal deficits Ext: Trace bilateral LE edema, no cyanosis. Mild chronic venous stasis changes of bilateral lower extremities Skin: Warm and dry - Plan Date/Time: 06/07/19144 IKaylie, have evaluated this patient and agree with findings/plan as outlined by automotive internet sales consultant resident. Pertinent changes/additions are listed here. Near syncopal event - Patient reports light headedness associated with low BP - Likely associated with orthostatic hypotension - Patient reports BP 80's/60's at home which has since resolved - Monitor on telemetry - Monitor BP's and hold BP's meds depending on trend of BP's - A-fib may be a contributing factor - BP's in ED have been stable Paroxysmal atrial fibrillation - Admitted for Afib RVR, but patient never in RVR based on review of ER records - EKG's show atrial fibrillation with rate well below 110 bpm - Will observe on telemetry - s/p cardioversion 06/[address] Stahl, successful cardioversion, plan for follow up with EP. Patient s/p ablation, cardioversion - Patient reports scheduled stress test 06/07. Will make NPO at midnight. Will order stress to get patient on list and plan to call Maribeth in AM to let him know she is here. - Restart home medications for rate and rhythm control - CXR with mild pulmonary edema but no evidence of consolidations - s/p Watchman device placement 11/2018 - Continue anticoagulation - Trop neg x2 - Echo ordered by Dr. Stahl recently; no results available for review TIMMY - Will give gentle fluids - Trend - Baseline GFR 60's; GFR today 35 HTN - Will hold lisinopril due to TIMMY and borderline BP's - Will hold BB due to stress in AM - Monitor BP and adjust medications as necessary Normocytic anemia - Consider iron studies for further workup History of PUD - Continue home medications - Patient on eliquis and at risk for re-bleed DVT PPX: Eliquis GI PPX: Protonix Code Status: Full code Dispo: Obs on telemetry. Anticipate LOS <48 hours.
[2019-06-07] MEDS ORDERED: Furosemide 40 MG TAB PO PRN (03:47)
[2019-06-07] MEDS ORDERED: Acetaminophen 325 MG TAB PO PRN (03:47)
[2019-06-07] MEDS ORDERED: Calcium Carbonate 500 MG ChewTAB PO PRN (03:47)
[2019-06-07] MEDS ORDERED: Lactated Ringer's 1,000 ML IV SCH (03:47)
[2019-06-07 04:32] VITALS: BMI 34.4
[2019-06-07 05:45] LABS: Iron 46 ug/dL (50-170); Iron Binding Capacity, Total 270 mcg/dL (265-497)
[2019-06-07 06:07] LABS: Thyroid Stimulating Hormone 2.3675 uIU/mL (0.35-4.94)
[2019-06-07] MEDS: Calcium Carbonate + Vit D 1 TAB PO SCH ×2 (07:54→20:38)
[2019-06-07] MEDS: hydrALAZINE 25 MG TAB PO SCH ×2 (07:55→20:38)
[2019-06-07] MEDS: Magnesium Oxide 400 MG TAB PO SCH (07:55)
[2019-06-07] MEDS: Apixaban 5 MG TAB PO SCH ×2 (07:55→20:45)
[2019-06-07] MEDS: Multivit, Therapeutic 1 TAB PO SCH (07:55)
[2019-06-07 09:27] LABS: Ferritin 125.16 ng/mL (10-291)
--- NOTE | 2019-06-07 11:55 | HP ---
I have examined the patient and discussed the case with Dr. Quentin Howell. I agree with his assessment and plan. HISTORY OF PRESENT ILLNESS: Ms. Dorsey is a 74-year-old female with a long past medical history of atrial fibrillation with Watchman and cardioversions in the past. She had a near syncopal episode at home and came to the ER. She states that while at home, her blood pressure dropped to 80 systolic, but by the time she got to the ER, blood pressure had normalized. She has been admitted for observation and Cardiology consultation. PHYSICAL EXAMINATION: VITAL SIGNS: Her blood pressure is now 110/60. Her heart rate is 85 and irregularly irregular. She is afebrile. Her room air pulse ox is 96%. GENERAL: She is awake and alert, in no distress. EARS, NOSE, AND THROAT: No erythema or exudate. NECK: Supple. CARDIAC: Heart rhythm irregular. No gallop or murmur noted. LUNGS: Clear without rales or wheezes. ABDOMEN: Flat and soft. NEUROLOGIC: There are no focal deficits. LABORATORY DATA: Her white count is 5600 with a hemoglobin of 11.3, hematocrit of 33.3, and MCV of 94. Chemistries; sodium 143, potassium 4.2, chloride 105, bicarb 29, BUN 33, creatinine 1.46 with a GFR of 35. Troponins are negative x2 at 0.010. Her TSH is 2.37. ASSESSMENT: Near-syncope and atrial fibrillation. PLAN: The patient had a stress test scheduled as an outpatient today, so we will proceed with this and consult with her normalizer. Job ID: [id number]
[2019-06-07 12:21] LABS: Anion Gap 13 mmol/L (10-20); BUN (Urea Nitrogen) 25 mg/dL (9.8-20.1); Calc. Creatinine Clearance 74 mL/min (70-130); Calcium 8.7 mg/dL (7.8-10.44); Carbon Dioxide 26 mmol/L (23-31); Chloride 105 mmol/L (98-107); Estimated GFR-MDRD 55; Glucose 189 mg/dL (83-110); Potassium 3.8 mmol/L (3.5-5.1); Sodium 140 mmol/L (136-145)
[2019-06-07] MEDS ORDERED: Acetaminophen 500 MG TAB PO PRN (12:51)
--- NOTE | 2019-06-07 13:09 | NM ---
Exam: Nuclear medicine cardiac SPECT with EF and wall motion, stress only HISTORY: Atrial fibrillation, cardioversion, hypertension Adenosine sestamibi stress only study is performed. Patient was injected with 28.4 mCi technetium 99m sestamibi intravenously. Short axis, vertical long axis, horizontal long axis scan images demonstrate no evidence for infarct or ischemia. LHR 0.29 EDV 99 mL Ejection fraction 65%. Normal wall motion. IMPRESSION: Unremarkable cardiac SPECT with EF and wall motion.
[2019-06-07] MEDS: Flecainide 50 MG TAB PO SCH ×2 (15:12→20:37)
[2019-06-07] MEDS ORDERED: ADENOSINE 60 MG/20 ML VIAL ONE (16:09)
[2019-06-07] MEDS: Carvedilol 25 MG TAB PO SCH (20:39)
[2019-06-07] MEDS ORDERED: Pramipexole Di-HCl 1 MG TAB PO SCH (21:00)
[2019-06-07] MEDS ORDERED: Atorvastatin Calcium 10 MG TAB PO SCH (21:00)
[2019-06-07] MEDS ORDERED: Gabapentin 300 MG CAP PO SCH (21:00)
--- NOTE | 2019-06-08 06:29 | PDOC.FM ---
- Subjective Subjective: Pt is doing well today. She went for a cardioversion this morning. She feels much better. Only had a ALMARAZ afterwards but was alleviated with tylenol. She converted to NSR. - Objective Vital Signs & Weight: Vital Signs (12 hours) Temp Pulse Resp BP BP BP Pulse Ox 06/08/19 04:12 98.3 F 99 16 111/58 L 97 06/07/19 20:38 84 137/58 L 06/07/19 19:54 98.3 F 84 16 137/58 L 96 Weight Weight 96.751 kg I&O: 06/06/19 06/07/19 06/08/19 06:59 06:59 06:59 Intake Total 502 850 Output Total 0 800 Balance 502 50 Result Diagrams: 06/06/19 21:39 06/08/19 05:47 Phys Exam - Physical Examination Constitutional: NAD HEENT: PERRLA, moist MMs Neck: no JVD, full ROM Respiratory: no wheezing, no rales, clear to auscultation bilateral Cardiovascular: RRR, no significant murmur Gastrointestinal: soft, positive bowel sounds Musculoskeletal: pulses present trace pitting edema Neurological: normal sensation, moves all 4 limbs Psychiatric: normal affect, A&O x 3 Skin: no rash, normal turgor Dx/Plan (1) GERD (gastroesophageal reflux disease) Code(s): K21.9 - GASTRO-ESOPHAGEAL REFLUX DISEASE WITHOUT ESOPHAGITIS Status: Chronic (2) HLD (hyperlipidemia) Code(s): E78.5 - HYPERLIPIDEMIA, UNSPECIFIED Status: Chronic (3) HTN (hypertension) Code(s): I10 - ESSENTIAL (PRIMARY) HYPERTENSION Status: Chronic (4) Paroxysmal A-fib Code(s): I48.0 - PAROXYSMAL ATRIAL FIBRILLATION Status: Chronic (5) Restless leg Status: Chronic (6) Atypical chest pain Code(s): R07.89 - OTHER CHEST PAIN Status: Acute - Plan Plan: 74yo F with h/o Afib s/p attempted cardioversion on 06/01, HTN, GERD presents for episode of presyncope and chronic afib #Paroxysmal Afib - s/p Watchman 2019, cardioversion x2 (most recent 06/02/19) and ablation - restart home meds - stress test unremarkable - consulted cardiology; appreciate recs - consulted EP, appreciate recs - cardioversion today, possibly home today once confirmed with cardiology - will discuss d/c anticoagulation - noted in cardiology note #Presyncope with hypotension - resolved 2/2 Orthostatic Hypotension and conversion into A-fib - continue home medications, gave fluids #Prolonged QT - QTc of 497 - avoid QT prolonging meds #TIMMY on CKDII - at baseline - continue home meds #GERD with h/o pepcid ulcer bleeds - on anticoagulation - cont home protonix - no s/s of acute bleed #Normocytic Anemia - Hb 11.3, RDW 16.6 - Iron 46, TIBC 270, Ferritin 125, B12 535, Folate 27 #Restless legs - cont home meds Code: Full PCP: Temo IVF: LR @ 120cc/hr Diet: NPO for possible stress VTE: Home Eliquis Disposition/LOS: Will discuss continued care with cardiology
[2019-06-08 06:32] LABS: Chloride 110 mmol/L (98-107); Potassium 3.7 mmol/L (3.5-5.1); Sodium 143 mmol/L (136-145)
[2019-06-08 06:33] LABS: Calcium 8.8 mg/dL (7.8-10.44); Glucose 107 mg/dL (83-110)
[2019-06-08 06:35] LABS: Anion Gap 10 mmol/L (10-20); Carbon Dioxide 27 mmol/L (23-31)
[2019-06-08 06:37] LABS: Calc. Creatinine Clearance 89 mL/min (70-130); Estimated GFR-MDRD 68
[2019-06-08 06:38] LABS: BUN (Urea Nitrogen) 20 mg/dL (9.8-20.1)
[2019-06-08] MEDS ORDERED: PROPOFOL 20 ML ONE (07:14)
--- NOTE | 2019-06-08 08:17 | CON ---
DATE OF CONSULTATION: 06/07/2019 REASON FOR CONSULTATION: Atrial fibrillation with RVR. PRIMARY OLERICULTURE PROFESSOR: Jason Stahl MD HISTORY OF PRESENT ILLNESS: Ms. Dorsey is a very pleasant 74-year-old white female, who comes to the hospital for new onset atrial fibrillation. She was recently cardioverted after being back in atrial fibrillation. She was started on flecainide and she received shock actually last Tuesday and she was back in normal rhythm, doing well. She had a Watchman device placed and this has been confirmed that it is completely occluded and does not need any more full anticoagulation for stroke prophylaxis. She has been very compliant with medications; however, she went back into atrial fibrillation and Cardiology consulted for this. PAST MEDICAL HISTORY: 1. Atrial fibrillation status post ablation. 2. Status post Watchman device. 3. Peptic ulcer disease with history of bleeding. 4. GERD. 5. Hypertension. 6. Restless legs syndrome. PAST SURGICAL HISTORY: 1. Watchman device in November 2018. 2. Hysterectomy. 3. Cholecystectomy. 4. Cataract surgery. 5. Left knee replacement. 6. Atrial fibrillation ablation. 7. Multiple cardioversions. FAMILY HISTORY: Sister with atrial fibrillation. SOCIAL HISTORY: Social alcohol use. No tobacco or drug use. OUTPATIENT MEDICATIONS: 1. Calcium carbonate. 2. Lisinopril 40 mg at bedtime. 3. Magnesium. 4. Multivitamin daily. 5. Pantoprazole. 6. Atorvastatin 10 mg at bedtime. 7. Tylenol p.r.n. 8. Eliquis 5 mg b.i.d. 9. Gabapentin 300 mg at bedtime. 10. Carvedilol 25 mg b.i.d. 11. Lasix 40 mg a day as needed. 12. Flecainide 100 mg b.i.d. 13. Mirapex. 14. Alendronate. 15. Hydralazine 25 mg b.i.d. ALLERGIES: 1. AMOXICILLIN. 2. CLAVULANIC ACID. 3. NITROFURANTOIN. REVIEW OF SYSTEMS: A 12-point review of systems was done and was all negative unless stated in the history of present illness. PHYSICAL EXAMINATION: VITAL SIGNS: Temperature 99.2, pulse 81, respiratory rate 16, saturation 97% on room air, blood pressure 120/58. GENERAL: Awake, alert, oriented x3, in no distress. HEENT: Normocephalic and atraumatic. NECK: Supple. LUNGS: Clear. CARDIOVASCULAR: S1 and S2. No S3. Irregularly irregular. Heart rate in the 80s. ABDOMEN: Soft. Positive bowel sounds. EXTREMITIES: No edema. SKIN: Warm and dry. LABORATORY DATA: Laboratory work was reviewed. White count of 5, hemoglobin 11, hematocrit 33, platelet count of 193. Chemistries were unremarkable. Troponin is undetectable. Normal potassium. Influenza A and B are both negative. ASSESSMENT: 1. Atrial fibrillation with rapid ventricular response. Currently rate controlled. 2. Status post Watchman device. PLAN: 1. We will consult EP for possible re-ablation. This will not happen right now. 2. Plan is to do a cardioversion tomorrow. We spoke at length with risks and benefits of the procedure, she has had this before. She agrees to proceed. We will do tomorrow, just cardioversion. No need for BRISA as she has a Watchman device that has been cleared. 3. Continue flecainide. Hopefully, since she has been longer on flecainide, she will be loaded better and she will not recur. 4. Should be able to stop the Eliquis as her Watchman device is already in place. Thank you for letting us to participate in the care of your patient. We will follow. Job ID: [id number]
[2019-06-08] MEDS: Flecainide 50 MG TAB PO SCH (09:46)
[2019-06-08] MEDS: Magnesium Oxide 400 MG TAB PO SCH (09:46)
[2019-06-08] MEDS: hydrALAZINE 25 MG TAB PO SCH (09:47)
[2019-06-08] MEDS: Calcium Carbonate + Vit D 1 TAB PO SCH (09:47)
[2019-06-08] MEDS: Apixaban 5 MG TAB PO SCH (09:47)
[2019-06-08] MEDS: Multivit, Therapeutic 1 TAB PO SCH (09:47)
[2019-06-08] MEDS: Carvedilol 25 MG TAB PO SCH (09:47)
--- NOTE | 2019-06-08 12:26 | PRG ---
DATE OF SERVICE: 06/08/2019 Ms. Dorsey is lying quietly in bed, in no distress. Her stress Myoview yesterday was negative for significant ischemia. This morning, she underwent successful ablation of her atrial fibrillation and will likely be discharged later today or tomorrow. We will continue to follow her with Cardiology. Job ID: [id number]
[2019-06-08 12:34] VITALS: TEMP 98.8
[2019-06-08 16:27] VITALS: BP 112/60
--- NOTE | 2019-06-08 16:28 | PDOC.EP ---
- Subjective Date: 06/08/19 Time: 16:24 Interval History: follow up for atrial arrhythmias. s/p DCCV this AM. Feels well, eager to go home. no concerns other than discharge info. - Review of Systems Constitutional: denies: chills, fever, malaise, sweats, weakness, other Respiratory: denies: cough, dry, hemoptysis, pleuritic pain, shortness of breath , SOB with excertion, sputum, wheezing, other Cardiology: denies: chest pain, edema, heart racing, light headedness, paroxysmal noc. dyspnea, orthopnea, palpitations, passing out, pleuritic pain, pressure, swelling, other Gastrointestinal: denies: abdominal pain, constipation, diarrhea, hematochezia, melena, nausea, vomitting, other Musculoskeletal: denies: unstable gait, falls, neck pain, shoulder pain, arm pain, hand pain, leg pain, foot pain, other Neurological: denies: headache, vision changes, other - Objective Allergies/Adverse Reactions: Allergies Allergy/AdvReac Type Severity Reaction Status Date / Time amoxicillin [From Augmentin] Allergy Nausea Verified 06/07/19 04:37 clavulanic acid Allergy Nausea Verified 06/07/19 04:37 [From Augmentin] nitrofurantoin Allergy Nausea Verified 06/07/19 04:37 [From Macrobid] Current Medications Acetaminophen (Tylenol) 650 mg PO Q4H PRN PRN Reason: Headache/Fever Acetaminophen (Tylenol) 1,000 mg PO Q6H PRN PRN Reason: Pain Last Admin: 06/08/19 09:46 Dose: 1,000 mg Alendronate Sodium (Fosamax) 70 mg PO Q7D [facility] Apixaban (Eliquis) 5 mg PO BID [facility] Last Admin: 06/08/19 09:47 Dose: Not Given Atorvastatin Calcium (Lipitor) 10 mg PO HS [facility] Last Admin: 06/07/19 20:39 Dose: 10 mg Calcium Carbonate (Tums) 1,000 mg PO Q4H PRN PRN Reason: Heartburn or Indigestion Calcium/Vitamin D (Caltrate 600 + Vit D) 1 tab PO BID [facility] Last Admin: 06/08/19 09:47 Dose: 1 tab Carvedilol (Coreg) 25 mg PO BID [facility] Last Admin: 06/08/19 09:47 Dose: 25 mg Flecainide Acetate (Tambocor) 100 mg PO BID [facility] Last Admin: 06/08/19 09:46 Dose: 100 mg Furosemide (Lasix) 40 mg PO DAILY PRN PRN Reason: Edema Gabapentin (Neurontin) 300 mg PO [facility] Last Admin: 06/07/19 20:39 Dose: 300 mg Hydralazine HCl (Apresoline) 25 mg PO BID [facility] Last Admin: 06/08/19 09:47 Dose: 25 mg Lisinopril (Zestril) 40 mg PO [facility] Magnesium Oxide (Magnesium Oxide) [facility] Last Admin: 06/08/19 09:46 Dose: 400 mg Multivitamins (Theragran) 1 tab PO [facility] Last Admin: 06/08/19 09:47 Dose: 1 tab Pantoprazole Sodium (Protonix) 40 mg PO [facility] Last Admin: 06/08/19 09:47 Dose: 40 mg Pramipexole Dihydrochloride (Mirapex) 1.5 mg PO [facility] Last Admin: 06/07/19 20:36 Dose: 1.5 mg Sodium Chloride (Flush - Normal Saline) 10 ml IVF PRN PRN PRN Reason: Saline Flush Last Admin: 06/07/19 20:36 Dose: 10 ml Vital Signs & Weight: Vital Signs Temp Pulse Resp BP Pulse Ox 06/08/19 11:40 98.8 F 60 20 108/51 L 95 06/08/19 09:47 71 06/08/19 08:13 98.1 F 71 18 131/60 98 Weight 213 lb 4.8 oz I/O: I/O 06/07/19 06/08/19 06/09/19 06:59 06:59 06:59 Intake Total 502 850 Output Total 0 800 Balance 502 50 - Quality Measures Condition: Atrial Fibrillation/Flutter (hx or current) CV meds: Aspirin: Yes - Medication Contraindications No Anticoagulant reason: Treatment not indicated - Physical Exam General: alert & oriented x3, appears well, no apparent distress, speech clear, affect appropriate HEENT: mucus membranes moist, normocephaly Neck: supple neck, midline trachea, no JVD/HJR, no masses, no bruit, no lymphadenopathy, no thromegaly Cardiology: regular rate and rhythm, no murmur, regular rate, regular rhythm, PMI nondisplaced Lungs: clear to auscultation, normal breath sounds, normal exam, no wheeze, rales, rhonchi, no wheezes, no rales, no rhonchi Neurology: cranial nerve 2-12 intact, grossly intact, motor function intact, sensory function intact, negative rhomberg, coordination normal, no lateralizing findings Abdomen: unremarkable, active bowel sounds, soft, non-tender, no masses, no pulsations/bruits, no hepatosplenomegaly, HJR negative - Labs Result Diagrams: 06/06/19 21:39 06/08/19 05:47 - EKG Interpretation EKG Method: Telemetry EKG shows: Sinus rhythm - Assessment/Plan Assessment/Plan: 1. Atrial fibrillation/flutter 2. Left atrial appendage closure -watchman, documented closed. No need for Eliquis for A Fib CVA prophylaxis unless she undergoes redo ablation 3. CHADS2-VASC:4 - ASA only s/p CV last week and then flecainide initiated. ERAF during flecainide loading. Loading completed and successful CV this AM. maintaining SR. I recommended redo ablation. She is considering this but is undecided. Has OV appt this coming Tuesday where we can discuss this further. OK to DC by EP on flecainide 100 BID and coreg 25 BID.
--- NOTE | 2019-06-08 18:40 | OP ---
DATE OF PROCEDURE: 06/08/19 PREOPERATIVE DIAGNOSIS: Atrial fibrillation. PROCEDURE: Direct current cardioversion, synchronized. SUMMARY: The patient is a pleasant 74-year-old female who comes to the outpatient area for planned cardioversi on. She is fully loaded on Flecainide. Has a Watchman device for stroke prophylaxis which is recently confirmed to be completely occlusive. She has symptomatic A-fib again. Electrophysiology recommended repeat cardioversion and if recurrence, then repeat ablation. She was brought down, prepped and draped in the usual manner. Consents were signed and verified. [facility] thesiology department provided sedation for the patient. Please see their notes for details. After adequate sedation was achieved, one single synchronized shock was delivered at 100 joules succe ssfully converting him from atrial fibrillation into sinus rhythm with a first degree AV block. The p atient tolerated the procedure well. RECOMMENDATIONS: 1. Continued medical therapy. 2. Continue Flecainide. 3. If recurrence, we will recommend repeat PVAI.
[2019-06-08] MEDS ORDERED: Lisinopril 20 MG TAB PO SCH (21:00)
[2019-06-10] MEDS ORDERED: Alendronate Sodium 70 mg Tablet PO SCH (09:00)
--- NOTE | 2019-06-10 09:00 | CON ---
DATE OF CONSULTATION: 06/07/2019 Dictated by Tea Kevin NP, as scribe for John Belcher MD. REASON FOR FOLLOWUP: Atrial arrhythmia management. CONSULTED PHYSICIAN: John Belcher MD HISTORY OF PRESENT ILLNESS: Ms. Dorsey is a pleasant 74-year-old woman with a prior history of paroxysmal atrial fibrillation, who underwent PVAI on 11/30/2018. She also had a Watchman placed in her left atrial appendage that day for contraindication to chronic anticoagulation with prior GI bleed. Since that time, she has had imaging that shows her Watchman is closed. She had been transitioned off to Eliquis by our office. She had recently undergone a cardioversion, but had early recurrence and was admitted with atrial fibrillation with RVR. EP consultation is requested regarding her recurrent atrial arrhythmias and treatment options moving forward. Ms. Dorsey is currently feeling well. She denies any heart racing, palpitations, chest pain, pressure, syncope, near syncope, stroke, or stroke-like symptoms. REVIEW OF SYSTEMS: A 12-point review of systems was negative except that listed above in HPI. PAST MEDICAL HISTORY: 1. Paroxysmal atrial fibrillation status post PVAI on 11/30/2018 with late recurrence of atrial fibrillation, prompting flecainide initiation. 2. CHADS-VASc score of 4 with prior GI bleed, prompting Watchman for left atrial appendage closure on 11/30/2018. a. Left atrial appendage is documented closed, no further anticoagulation is indicated except aspirin 81 mg daily for CHADS-VASc score. 3. Peptic ulcer disease. 4. Varicose veins. 5. Nonrheumatic aortic valve resection. 6. Basal skin cancer. 7. Hypertension. 8. Hypercholesterolemia. 9. Venous insufficiency. SURGICAL HISTORY: 1. Cholecystectomy. 2. Hysterectomy. 3. Left knee replacement. 4. Cataract surgery. ALLERGIES: AUGMENTIN. HOME MEDICATIONS: Include: 1. Apresoline 25 mg b.i.d. 2. Mirapex 1.5 mg nightly. 3. Gabapentin 300 mg nightly. 4. Flecainide 100 mg p.o. b.i.d. 5. Alendronate weekly. 6. Tylenol as needed. 7. Lisinopril 40 mg nightly. 8. Furosemide 40 mg p.r.n. 9. Carvedilol 25 mg b.i.d. 10. Lipitor 10 mg nightly. 11. Protonix 40 mg q.a.m. 12. Multivitamin daily. 13. Magnesium 400 mg q.a.m. 14. Calcium with vitamin D b.i.d. FAMILY HISTORY: Noncontributory. SOCIAL HISTORY: Denies alcohol, tobacco, or illicit drug use. OBJECTIVE: VITAL SIGNS: Temperature 98.5, pulse 99, blood pressure 135/71, respirations 18, and oxygen 99% on room air. GENERAL: The patient is alert and oriented. Speech is clear. Affect is appropriate. She is in no apparent distress at the time of the exam. NECK: Supple without jugular venous distention. There is no lymphadenopathy. Carotids are without bruit. LUNGS: Clear to auscultation bilaterally without wheezes, crackles, or rhonchi. HEART: Rate is irregularly irregular. PMI is nondisplaced. EXTREMITIES: Warm and dry to touch without clubbing, cyanosis, or edema. ABDOMEN: Soft and nontender without palpable masses. It is obese. NEUROLOGIC: Intact and nonfocal. Gait was not assessed. DATABASE: Telemetry and EKG show atrial fibrillation initially with RVR, now better ventricular rate controlled between 80 and 100 beats per minute. IMPRESSION: 1. Paroxysmal atrial fibrillation status post late recurrence following pulmonary vein antrum isolation. 2. Pulmonary venous antrum isolation in 12/2018. 3. Early recurrence of atrial fibrillation after cardioversion 1 week ago, which prompted flecainide initiated after the cardioversion, recurrence during flecainide loading. 4. History of Watchman due to gastrointestinal bleeds, left atrial appendage is documented closed. Aspirin 81 mg daily is required for stroke prophylaxis. 5. Aortic valve replacement in the remote past. PLAN AND RECOMMENDATIONS: At this point, Ms. Dorsey has now completed adequate flecainide loading. She did have a recurrence during this loading period. I would recommend cardioversion in the immediate future, but long-term my recommendation is for redo PVAI if she can tolerate a short course of oral anticoagulation. This was discussed with Dr. Stahl. I discussed the risks, benefits, and alternatives to cardioversion with the patient. She is willing to proceed. Which can be done by myself, Dr. Stahl or one of our associates. She should be n.p.o. after midnight and arrangements will be made. I would anticipate that if no other medical issues are seen she would be discharged home following the cardioversion recovery on flecainide, though no Eliquis is required from an electrophysiology and atrial fibrillation perspective. Thank you for allowing me to participate in the care of this patient. Job ID: [id number]
== END 2019-06-08 16:28 | disposition home or self-care (01) ==
LOC: ERS 21:19 → 2SW 06-07 00:17
PROVIDERS: ADMIT Family Medicine; ATTEND Family Medicine
PROC: 5A2204Z Restoration of Cardiac Rhythm, Single (ICD-10-PCS; principal; 2019-06-08)
DX: I48.0 Paroxysmal atrial fibrillation (principal); I95.1 Orthostatic hypotension; K21.9 Gastro-esophageal reflux disease without esophagitis; G25.81 Restless legs syndrome; I12.9 Hypertensive chronic kidney disease with stage 1 through stage 4 chronic kidney disease, or unspecified chronic kidney disease; N18.2 Chronic kidney disease, stage 2 (mild); N17.9 Acute kidney failure, unspecified; D64.9 Anemia, unspecified; R94.31 Abnormal electrocardiogram [ECG] [EKG]; E78.00 Pure hypercholesterolemia, unspecified; F41.9 Anxiety disorder, unspecified; R07.89 Other chest pain; I48.92 Unspecified atrial flutter; Z87.11 Personal history of peptic ulcer disease; Z79.01 Long term (current) use of anticoagulants; Z79.83 Long term (current) use of bisphosphonates; Z79.899 Other long term (current) drug therapy; Z88.0 Allergy status to penicillin; Z88.1 Allergy status to other antibiotic agents; Z88.8 Allergy status to other drugs, medicaments and biological substances; Z95.2 Presence of prosthetic heart valve; Z95.818 Presence of other cardiac implants and grafts
CPT/HCPCS: 71045; 78452; 80048 ×2; 80053; 82607; 82728; 82746; 83540; 83550; 83605; 84443; 84484 ×2; 85025; 87804 ×2; 92960; 93005; 93017; 96360; 96361; 97139 ×2; 99285; A9500; 36415; G0378; J0153; J2704

== ENCOUNTER 2019-06-18 20:16 | Observation (INO) | payer MEDICARE ==
[2019-06-18] MEDS ORDERED: Morphine 4 MG/ML VIAL ONE ×2 (21:54→22:50)
[2019-06-18 22:21] LABS: #Eosinphils 0.2 thou/uL (0.0-0.7); #Lymphocytes 1.1 thou/uL (1.20-3.40); #Monocytes 0.7 thou/uL (0.11-0.59); #Neutrophils 6.3 thou/uL (1.40-6.50); %Basophils 0.1 % (0.0-1.0); %Eosinophils 1.9 % (0.0-10.0); %Lymphocytes 13.6 % (21.0-51.0); %Monocytes 8.9 % (0.0-10.0); %Neutrophils 75.6 % (42.0-75.0); Hemoglobin 11.3 g/dL (12.0-16.0); Mean Corpuscular HGB CONC 34.1 g/dL (32.0-36.0); Mean Corpuscular Hemoglobin 31.8 pg (27.0-31.0); Mean Corpuscular Volume 93.2 fL (78.0-98.0); Mean Platelet Volume 8.1 fL (7.4-10.4); Platelet Count 176 thou/uL (130-400); Red Blood Cell (RBC) Count 3.54 mill/uL (4.20-5.40); White Blood Cell (WBC) Count 8.3 thou/uL (4.8-10.8)
--- NOTE | 2019-06-18 22:40 | RAD ---
EXAM: CHEST ONE VIEW HISTORY: Left shoulder pain and back pain. COMPARISON: 06/06/2019 FINDINGS: Cardiac silhouette is magnified by portable technique and patient rotation but is stable in size and probably mildly enlarged. Pulmonary vasculature is within normal limits. The lungs are clear. Degenerative changes are again seen in the spine IMPRESSION: 1. No acute cardiopulmonary process. 2. Mild cardiomegaly.
[2019-06-18 22:41] LABS: ALT (SGPT) 13 U/L (8-55); AST (SGOT) 14 U/L (5-34); Albumin 4.5 g/dL (3.4-4.8); Alkaline Phosphatase 62 U/L (40-110); Anion Gap 14 mmol/L (10-20); BUN (Urea Nitrogen) 27 mg/dL (9.8-20.1); Bilirubin, Total 2.2 mg/dL (0.2-1.2); Calc. Creatinine Clearance 0 mL/min (70-130); Calcium 9.6 mg/dL (7.8-10.44); Carbon Dioxide 26 mmol/L (23-31); Chloride 100 mmol/L (98-107); Estimated GFR-MDRD 54; Globulin 2.8 g/dL (2.4-3.5); Glucose 110 mg/dL (83-110); Protein, Total 7.3 g/dL (6.0-8.3); Sodium 136 mmol/L (136-145)
--- NOTE | 2019-06-18 22:56 | RAD ---
THREE VIEWS LEFT SHOULDER: History: Left shoulder pain with pain radiating to the back. FINDINGS: Coracoclavicular and acromioclavicular distances are within normal limits. No fracture, dislocation, or other osseous abnormality is seen involving the left shoulder. IMPRESSION: No acute osseous abnormality. POS: OFF
[2019-06-18] MEDS ORDERED: Alendronate Sodium 70 mg Tablet PO SCH (23:45)
--- NOTE | 2019-06-18 23:50 | PDOC.FPRHP ---
- History of Present Illness Chief Complaint: R shoulder pain History of Present Illness: 74 y/o F with a pmhx of a fib s/p watchman prcedure and ablation, HTN, HLD presents to the ER with R shoulder pain. Pain is 9/10 intensity, radiates toward the spine from under her R shoulder blade. Started last and has gradually worsened. Pt was at f/u hx visit with Dr. Plascencia PCP today and was given script of muscl relaxer, she never took medication and instead come to ER because the severity of pain. c/o pleuritic pain with deep breaths. Pt denies CP, SOB, palpitations, N/V/abd pain/D. ED course: CXR: no acute process, mild cardiomegaly. Shoulder x-ray: no acute fx or process Trop 0.013 - Allergies/Adverse Reactions Allergies Allergy/AdvReac Type Severity Reaction Status Date / Time amoxicillin [From Augmentin] Allergy Nausea Verified 06/07/19 04:37 clavulanic acid Allergy Nausea Verified 06/07/19 04:37 [From Augmentin] nitrofurantoin Allergy Nausea Verified 06/07/19 04:37 [From Macrobid] - Home Medications Medication Instructions Recorded Confirmed Type Calcium Carbonate + Vit D 1 tab PO BID 04/16/13 06/07/19 History [Caltrate 600 + Vit D] Lisinopril 40 mg PO HS 04/16/13 06/07/19 History Magnesium Oxide [Magnesium] 400 mg PO QAM 04/16/13 06/07/19 History Multivitamin [Multivitamins] 1 cap PO QAM 04/16/13 06/07/19 History Pantoprazole [Protonix] 40 mg PO QAM 04/16/13 06/07/19 History Atorvastatin Calcium [Lipitor] 10 mg PO HS 10/11/16 06/07/19 History Acetaminophen [Tylenol Extra 1,000 mg PO Q6HR PRN 01/26/17 06/07/19 History Strength] Gabapentin 300 mg PO HS 01/26/17 06/07/19 History Carvedilol 25 mg PO BID 10/04/17 06/07/19 History Furosemide 40 mg PO DAILY PRN 10/04/17 06/07/19 History Flecainide Acetate [Tambocor] 100 mg PO BID 11/17/17 06/07/19 History Pramipexole Di-HCl [Mirapex] 1.5 mg PO HS 11/17/17 06/07/19 History Alendronate Sodium 1 tab PO Q7D 01/05/19 06/07/19 History hydrALAZINE [Apresoline] 25 mg PO BID 05/31/19 06/07/19 History - History PMHx: paroxysmal A fib, HTN, HLD, skin CA S/P radiation to nose which caused problem with lacrimation. PSHx: tear duct repair, B cataract removal, L-knee replacement, cholecystectomy , hysterectomy, November 2018 watchman procedure and ablations. FHx: sister: a fib and CHF Social: denies etoh, tobacco or drug use. - Review of Systems General: denies: fever/chills, weight/appetite/sleep changes Eyes: denies: eye pain, vision changes ENT: denies: nasal congestion Respiratory: reports: other (plueritic pain). denies: cough, congestion, shortness of breath Cardiovascular: denies: chest pain, palpitation, edema, paroxysmal nocturnal dyspnea Gastrointestinal: denies: nausea, vomiting, diarrhea, abdominal pain Genitourinary: denies: dysuria Skin: denies: rashes, lesions Musculoskeletal: reports: pain (R shoulder), stiffness (r shoulder) Neurological: denies: numbness, syncope, seizure, weakness - Vital signs BP: 115/59 HR: 70 RR: 17 Tmax: 99.8 F Pox: 93% on ra Wt: 90.7 kg - Physical Exam Constitutional: NAD, awake, alert and oriented, well developed HEENT: normocephalic and atraumatic, PERRLA, EOMI, conjunctiva clear, no scleral icterus, grossly normal vision, grossly normal hearing, MMM, oropharynx clear Neck: supple, FROM, trachea midline, no LAD, no JVD Chest: no-tender to palpation Heart: RRR, normal S1/S2, no murmurs/rubs/gallops, pulses present, no edema Lungs: CTAB, no respiratory distress, good air movement, no rales/rhonchi, no wheezing, no retractions Abdomen: soft, non-tender, bowel sounds present, no masses/distention Musculoskeletal: normal structure, normal tone, ROM grossly normal -Musculoskeletal: negative dsouza, neer, and empty can test of R shoulder. Tenderness over posterior rhomboids on R side. Hypertonicty and TART changes to R rhomboid. Neurological: no focal deficit, CN II-XII intact, normal sensation Skin: no rash/lesions, good turgor, capillary refill <2 seconds Heme/Lymphatic: no unusual bruising or bleeding, no purpura, no petechia Psychiatric: normal mood and affect, good judgment and insight, intact recent and remote memory FMR H&P: Results - Labs Result Diagrams: 06/18/19 22:10 06/18/19 22:10 Lab results: WBC 8.3 thou/uL (4.8-10.8) 06/18/19 22:10 Hgb 11.3 g/dL (12.0-16.0) L 06/18/19 22:10 Hct 33.0 % (36.0-47.0) L 06/18/19 22:10 MCV 93.2 fL (78.0-98.0) 06/18/19 22:10 Plt Count 176 thou/uL (130-400) 06/18/19 22:10 Neutrophils % 75.6 % (42.0-75.0) H 06/18/19 22:10 Sodium 136 mmol/L (136-145) 06/18/19 22:10 Potassium 4.0 mmol/L (3.5-5.1) 06/18/19 22:10 Chloride 100 mmol/L (98-107) 06/18/19 22:10 Carbon Dioxide 26 mmol/L (23-31) 06/18/19 22:10 BUN 27 mg/dL (9.8-20.1) H 06/18/19 22:10 Creatinine 1.00 mg/dL (0.6-1.1) 06/18/19 22:10 Glucose 110 mg/dL (83-110) 06/18/19 22:10 Calcium 9.6 mg/dL (7.8-10.44) 06/18/19 22:10 Total Bilirubin 2.2 mg/dL (0.2-1.2) H 06/18/19 22:10 AST 14 U/L (5-34) 06/18/19 22:10 ALT 13 U/L (8-55) 03/02/20 22:10 Alkaline Phosphatase 62 U/L (40-110) 06/18/19 22:10 B-Natriuretic Peptide 405.5 pg/mL (0-100) H 06/18/19 22:10 Serum Total Protein 7.3 g/dL (6.0-8.3) 06/18/19 22:10 Albumin 4.5 g/dL (3.4-4.8) 06/18/19 22:10 - Radiology Interpretation Chest x-ray Status: report reviewed by me (mild cardiomegaly, no acute process) Other Status: report reviewed by me (R shoulder x-ray, no acute fx or process) FMR H&P: A/P - Problem List (1) Acute pain of right shoulder Current Visit: Yes Status: Acute Code(s): M25.511 - PAIN IN RIGHT SHOULDER (2) GERD (gastroesophageal reflux disease) Current Visit: No Status: Chronic Code(s): K21.9 - GASTRO-ESOPHAGEAL REFLUX DISEASE WITHOUT ESOPHAGITIS (3) HLD (hyperlipidemia) Current Visit: No Status: Chronic Code(s): E78.5 - HYPERLIPIDEMIA, UNSPECIFIED (4) HTN (hypertension) Current Visit: No Status: Chronic Code(s): I10 - ESSENTIAL (PRIMARY) HYPERTENSION (5) Paroxysmal A-fib Current Visit: No Status: Chronic Code(s): I48.0 - PAROXYSMAL ATRIAL FIBRILLATION - Plan 74 y/o F admitted for acute R shoulder pain and rule out of possible cardiac etiology. 1. Acute R shoulder pain - Most likely MSK in nature with muscle spasms. Considering etiology such as pain preceding shingles rash, or cardiac causes. - Prescribed baclofen 10 mg TID to help relieve muscle spasms. If this does not alleviate pain, consider etiology such as AAA, and will order aortic sonogram. - Will trend troponin level, initial trop neg at 0.013. - Will monitor for rash overlying pain. None present at time of admission. 2. Paroxysmal A fib - Pt currently not on eliquis, flecanide or BP medications - recent hx stay with hypotension and A fib with RVR. - has ablation scheduled with Dr. Alvarenga 06/25. - Dr. Stahl is pt's chief design branch. 3. Hx of Watchman procedure and ablation for A fib - 11/2018 - on ASA 81 mg daily, continue 4. HTN - holding home BP medications as she has not been taking these since recent hypotensive hospitalization. 5. HLD - continue home medications 6. GERD - continue PPI Code status: full code diet: HH dvt ppx: lovenox Dispo stable, admit to tele obs to trend trop levels and treat R shoulder pain. FMR H&P: Upper Level - Plan Date/Time: 06/18/19 4740 I, Soren Llanos MD, have evaluated this patient and agree with findings/ plan as outlined by recruiting internship resident. Pertinent changes/additions are listed here. MSK pain - Likely muscle spasm at this time - Muscle relaxers for relief - XR negative - Low suspicion for cardiothoracic etiology at this time - Will trend troponins to rule out ACS Paroxysmal A-fib - Currently in A-fib - Likely need outpatient follow up for further medical management including previously scheduled EP ablation All other chronic conditions reviewed and medications to be restarted as appropriate. CODE STATUS: FULL CODE PCP: Dr. Plascencia Disposition: Stable, will admit to Telemetry Observation for further evaluation and management. Addendum - Attending - Attending Attestation Date/Time: 06/19/19 1044 I personally evaluated the patient and discussed the management with Dr. Crum I agree with the History, Examination, Assessment and Plan documented above with any addition or exceptions noted below. Pain intermittently since last that worsened yesterday. No overlying rash. TTP and pain with movement. Labs and imaging negative. EKG unremarkable. Observation for intractable acute MSK pain. Stated that baclofen helped pain and she was able to rest. Will schedule baclofen and give Toradol IV. Possible d /c this afternoon.
[2019-06-18] MEDS ORDERED: Furosemide 40 MG TAB PO PRN (23:55)
[2019-06-19 01:37] LABS: Troponin I Less than 0.010 ng/mL (< 0.028)
[2019-06-19] MEDS ORDERED: Acetaminophen 325 MG TAB ONE ×2 (03:08→08:31)
[2019-06-19] MEDS: Acetaminophen 325 MG TAB PO PRN ×2 (03:20→08:43)
[2019-06-19] MEDS: Baclofen 10 MG TAB PO SCH ×2 (03:40→10:09)
[2019-06-19 04:51] LABS: Troponin I 0.014 ng/mL (< 0.028)
[2019-06-19] MEDS ORDERED: Carvedilol 25 MG TAB PO SCH (08:00)
[2019-06-19] MEDS ORDERED: Aspirin Chewable 81 MG TAB ONE (08:31)
[2019-06-19 08:52] VITALS: TEMP 98.2
[2019-06-19] MEDS ORDERED: Enoxaparin Sodium 40 MG/0.4 ML SYRINGE SC SCH (09:00)
[2019-06-19] MEDS ORDERED: Aspirin 81 mg Enteric Coated Tablet PO SCH (09:00)
[2019-06-19] MEDS ORDERED: Calcium Carbonate 600 MG + Vit D TAB PO SCH (09:00)
[2019-06-19] MEDS ORDERED: Multivit, Therapeutic 1 TAB PO SCH (09:00)
[2019-06-19] MEDS ORDERED: Magnesium Oxide 400 MG TAB PO SCH (09:00)
[2019-06-19] MEDS ORDERED: Baclofen 10 MG TAB PO SCH (09:00)
[2019-06-19] MEDS ORDERED: Ketorolac Tromethamine 30 MG/ML VIAL ONE (09:56)
[2019-06-19] MEDS ORDERED: Gabapentin 300 MG CAP PO SCH (21:00)
[2019-06-19] MEDS ORDERED: Pramipexole Di-HCl 1 MG TAB PO SCH (21:00)
[2019-06-19] MEDS ORDERED: Atorvastatin Calcium 10 MG TAB PO SCH (21:00)
--- NOTE | 2019-06-20 07:58 | DIS ---
DATE OF ADMISSION: 06/18/2019 DATE OF DISCHARGE: 06/19/2019 RESIDENT: Flavia Rodgers MD. ADMITTING AND DISCHARGE ATTENDING: Dr. Neil Barker. CONSULTS: None. PROCEDURES: 1. Shoulder x-ray on 06/18/2019 showing no acute osseous abnormality. 2. Chest x-ray on 06/18/2019 showing mild cardiomegaly, no acute process. MEDICATIONS: The patient is to continue on all home medications as well as the newly prescribed baclofen from her PCP. DISCONTINUED MEDICATIONS: None. PRIMARY DIAGNOSIS: Left back muscle spasm. SECONDARY DIAGNOSES: 1. Paroxysmal atrial fibrillation, status post Watchman procedure and ablation. 2. Hypertension. 3. Hyperlipidemia. 4. Gastroesophageal reflux disease. HISTORY OF PRESENT ILLNESS/HOSPITAL COURSE: This is a 74-year-old female who presented to the ER with left shoulder pain. She states that the pain is 9/10 in intensity, radiates laterally towards her spine from her lower left shoulder/back. The patient said that she started with some mild pain on that has gradually worsened to be severe on the day of admission. The patient said that she went and saw her PCP, Dr. Plascencia, on the day of admission and was given a prescription for a muscle relaxer. She states that she never was able to take the medication and came to the ER instead because of the severity of the pain. The patient states that the pain was worse with a deep inspiration. She denied any chest pain, shortness of breath, palpitations, or vomiting associated with the pain. The chest x-ray was significant only for some mild cardiomegaly. No abnormalities otherwise seen on x-rays. The patient's troponin was negative as well as a D-dimer. The patient labs were otherwise insignificant. The patient was going to be admitted for pain related to her left shoulder muscle spasm. She was started on baclofen 10 mg 3 times a day to relieve these muscle spasms, which did help her pain some. The patient is to continue this at home. The patient was also given a Toradol shot while in the ER, which significantly improved her pain. Discussed with the patient that if she developed a rash over this area, to see her PCP about possible herpes zoster infection. This was considered unlikely as the patient has been having symptoms greater than 72 hours. The patient's chronic conditions remained stable throughout her stay. DISPOSITION: Stable. DISCHARGE INSTRUCTIONS: 1. Location: Home. 2. Activity: As tolerated. 3. Diet: Heart healthy. 4. Follow up with PCP, Dr. Plascencia, within 7 days. Job ID: [id number]
== END 2019-06-19 11:33 | disposition home or self-care (01) ==
LOC: ERS 20:16 → ERHOLD 23:19
PROVIDERS: ADMIT Emergency Medicine; ATTEND Emergency Medicine
DX: M62.830 Muscle spasm of back (principal); M25.512 Pain in left shoulder; I48.0 Paroxysmal atrial fibrillation; I10 Essential (primary) hypertension; E78.5 Hyperlipidemia, unspecified; K21.9 Gastro-esophageal reflux disease without esophagitis; Z79.01 Long term (current) use of anticoagulants; Z79.899 Other long term (current) drug therapy; Z88.0 Allergy status to penicillin; Z88.1 Allergy status to other antibiotic agents; Z88.8 Allergy status to other drugs, medicaments and biological substances
CPT/HCPCS: 71045; 73030; 80053; 83880; 84484 ×3; 85025; 85379; 93005; 96372; 96374; 96376; 97139 ×2; 99284; G0378 ×2; 36415; J1885; J2270

== ENCOUNTER 2019-06-22 16:29 | Emergency (ER) | payer MEDICARE ==
[2019-06-22 18:07] LABS: #Lymphocytes 0.6 thou/uL (1.20-3.40); #Monocytes 0.5 thou/uL (0.11-0.59); #Neutrophils 8.1 thou/uL (1.40-6.50); %Basophils 0.1 % (0.0-1.0); %Eosinophils 0.2 % (0.0-10.0); %Lymphocytes 6.2 % (21.0-51.0); %Neutrophils 88.5 % (42.0-75.0); Hemoglobin 9.9 g/dL (12.0-16.0); Mean Corpuscular HGB CONC 33.5 g/dL (32.0-36.0); Mean Corpuscular Hemoglobin 30.9 pg (27.0-31.0); Mean Corpuscular Volume 92.5 fL (78.0-98.0); Mean Platelet Volume 8.1 fL (7.4-10.4); Platelet Count 180 thou/uL (130-400); White Blood Cell (WBC) Count 9.2 thou/uL (4.8-10.8)
[2019-06-22] MEDS ORDERED: Diazepam 5 MG TAB ONE (18:12)
[2019-06-22] MEDS ORDERED: Morphine 4 MG/ML VIAL ONE (18:12)
[2019-06-22 18:15] LABS: INR-International Normal Ratio 1.3; Prothrombin Time 16.5 SEC (12.0-14.7)
[2019-06-22 18:28] LABS: ALT (SGPT) 18 U/L (8-55); AST (SGOT) 12 U/L (5-34); Albumin 3.8 g/dL (3.4-4.8); Alkaline Phosphatase 89 U/L (40-110); Anion Gap 12 mmol/L (10-20); BUN (Urea Nitrogen) 24 mg/dL (9.8-20.1); CK (CPK) 22 U/L (29-168); Calc. Creatinine Clearance 0 mL/min (70-130); Calcium 9.1 mg/dL (7.8-10.44); Carbon Dioxide 26 mmol/L (23-31); Chloride 102 mmol/L (98-107); Estimated GFR-MDRD 57; Globulin 2.9 g/dL (2.4-3.5); Glucose 181 mg/dL (83-110); Lipase 36 U/L (8-78); Magnesium 1.8 mg/dL (1.6-2.6); Potassium 4.3 mmol/L (3.5-5.1); Protein, Total 6.7 g/dL (6.0-8.3); Sodium 136 mmol/L (136-145)
--- NOTE | 2019-06-22 18:31 | RAD ---
Chest AP view INDICATION: Chest pain COMPARISON: June 18, 2019 FINDINGS: Lungs: The lungs are clear Cardiac silhouette: Stable mild cardiomegaly Pulmonary vasculature: Normal Pleural spaces: No pleural effusion or pneumothorax is demonstrated. Upper abdomen: No abnormality seen. Osseous structures: No acute osseous abnormality. Additional findings: None. IMPRESSION: No acute cardiopulmonary abnormality. Stable mild cardiac megaly.
[2019-06-22 18:52] LABS: Bacteria/HPF None Seen HPF (None Seen); Bilirubin Negative (Negative); Blood, Urine Negative (Negative); Clarity Clear (Clear); Glucose, Urine (Dipstick) Normal (Negative); Leukocyte 75 Leu/uL (Negative); Nitrite Negative (Negative); Protein, Urine (Dipstick) 10 mg/dL (Neg-Trace); RBC/HPF 0-3 HPF (0-3); Squamous Epithelial 0-3 HPF (0-3); Urobilinogen Normal mg/dL (Less than 2); WBC/HPF 0-3 HPF (0-3)
--- NOTE | 2019-06-22 19:21 | CT ---
CT OF THE ABDOMEN AND PELVIS WITHOUT IV CONTRAST INDICATION: Abdominal Pain COMPARISON: None FINDINGS: The lack of IV contrast limits evaluation of the solid organs of the abdomen and pelvis. ABDOMEN: Lung bases: There is bibasilar atelectasis Liver: No focal lesion. Gallbladder: Surgically absent Pancreas: Normal. Adrenal glands: Normal. Spleen: Enlarged measuring 14 cm Kidneys and ureters: There is a 4 mm stone involving the upper pole of the right kidney. No ureteral calculus or hydronephrosis is demonstrated. Vasculature: There are moderate vascular calcifications seen involving the visualized vasculature. Lymph nodes:No lymphadenopathy. Free fluid in abdomen:No free fluid is evident. PELVIS: Small and large bowel: Normal Appendix:Not seen Bladder: Decompressed Rectal and perirectal soft tissues:Normal. Reproductive structures: Not visible. There is a 3.1 cm cyst seen in the region of vaginal cuff. Free fluid in pelvis: No free fluid is evident. Lymphadenopathy pelvis: No lymphadenopathy is evident. Osseous structures: No acute osseous abnormality. No destructive osteolytic or osteoblastic lesion i s identified. There is scattered degenerative and osteoarthritic changes. Soft tissues:Normal. IMPRESSION: 1. Right nephrolithiasis. No hydronephrosis. No ureteral calculus identified. 2. Nonspecific mild splenomegaly. 3. Mild bibasilar subsegmental volume loss. 4. Cystic abnormality seen in the region of the vaginal cuff is nonspecific. As a conservative measur e a follow-up CT the pelvis with IV contrast in 3-6 months is recommended to document stability. 5. Nonvisualization appendix may reflect surgical absence. Recommend correlation. Cholecystectomy.
== END 2019-06-22 22:58 ==
LOC: ERS 16:29
DX: I48.20 Chronic atrial fibrillation, unspecified (principal); K21.9 Gastro-esophageal reflux disease without esophagitis; E78.5 Hyperlipidemia, unspecified; E78.00 Pure hypercholesterolemia, unspecified; I10 Essential (primary) hypertension; F41.9 Anxiety disorder, unspecified; Z79.891 Long term (current) use of opiate analgesic; Z79.899 Other long term (current) drug therapy
CPT/HCPCS: 36415; 71045; 74176; 80053; 81003; 81015; 82550; 83690; 83735; 84484; 85025; 85610; 85730; 87086; 93005; 96361; 96374; J2270

== ENCOUNTER 2020-02-29 06:33 | Outpatient (CLI) | payer MEDICARE ==
[2020-02-29 13:40] LABS: Hemoglobin 10.4 g/dL (12.0-16.0); Mean Corpuscular HGB CONC 29.8 G/DL (32.0-36.0); Mean Corpuscular Hemoglobin 29.5 PG (27.0-33.0); Mean Corpuscular Volume 98.9 fl (80.0-100.0); Mean Platelet Volume 11.2 fl (7.4-10.4); Platelet Count 167 10x3/uL (130-400); RBC Distribution Width 17.8 % (11.5-14.5); Red Blood Cell (RBC) Count 3.53 10x6/uL (3.90-5.20); White Blood Cell (WBC) Count 6.1 10x3/uL (4.5-11.0)
[2020-02-29 13:46] LABS: INR-International Normal Ratio 1.3; PTT 33.7 sec (22.0-33.0); Prothrombin Time 13.1 sec (9.5-12.1)
[2020-02-29 14:01] LABS: Anion Gap 17 mmol/L (10-20); BUN (Urea Nitrogen) 20 mg/dL (9.8-20.1); Calc. Creatinine Clearance 0 mL/min (70-130); Calcium 8.9 mg/dL (7.8-10.44); Carbon Dioxide 21 mmol/L (23-31); Chloride 108 mmol/L (98-107); Estimated GFR-MDRD 74; Glucose 111 mg/dL (83-110); Potassium 4.2 mmol/L (3.5-5.1); Sodium 142 mmol/L (136-145)
[2020-03-01 20:28] LABS: SARS-CoV-2 MS2 Positive; SARS-CoV-2 N Gene Negative; SARS-CoV-2 S Gene Negative; SARS-CoV-2 by NAA Not Detected (NotDetected); SARS-CoV-2 orf1ab Negative
--- NOTE | 2020-03-05 06:55 | EKG ---
Test Reason : Blood Pressure : / mmHG Vent. Rate : 066 BPM Atrial Rate : 416 BPM P-R Int : 000 ms QRS Dur : 090 ms QT Int : 422 ms P-R-T Axes : 000 003 100 degrees QTc Int : 442 ms Atrial fibrillation Nonspecific T wave abnormality Abnormal ECG No previous ECGs available Confirmed by SIMON MERCADO MD ([id number]) on 03/05/2020 6:54:45 AM Referred By: [facility] Confirmed By:SIMON MERCADO MD
== END 2020-02-29 06:34 | disposition home or self-care (01) ==
LOC: LABBT 06:33
PROVIDERS: ATTEND Internal Medicine Cardiovascular Disease
DX: Z01.818 Encounter for other preprocedural examination (principal); Z20.828 Contact with and (suspected) exposure to other viral communicable diseases; J35.01 Chronic tonsillitis
CPT/HCPCS: 80048; 85027; 85610; 85730; 93005; U0003; 87635; 93010

== ENCOUNTER 2020-03-05 08:26 | Inpatient (IN) | payer MEDICARE ==
[2020-03-05] MEDS ORDERED: Rocuronium Bromide 10 MG/ML (10ML VIAL) ONE (10:36)
[2020-03-05] MEDS ORDERED: Ondansetron PF 4 MG/2 ML Vial ONE (10:36)
[2020-03-05] MEDS ORDERED: PROPOFOL 200 MG/20 ML VIAL ONE (10:36)
[2020-03-05] MEDS ORDERED: Glycopyrrolate 0.2 MG/ML 5 ML SYRINGE ONE (10:36)
[2020-03-05] MEDS ORDERED: Lidocaine 1% PF 5 ML VIAL ONE (10:36)
[2020-03-05] MEDS ORDERED: Heparin 10,000 UNITS/ 10 ML VIAL ONE ×3 (11:24→14:22)
[2020-03-05] MEDS ORDERED: Midazolam HCl 2 mg/2 ml Vial ONE (11:42)
[2020-03-05] MEDS ORDERED: Fentanyl 100 MCG/2 ML VIAL ONE (11:42)
[2020-03-05] MEDS ORDERED: Heparin 25,000 units/D5W 500 ML ONE (12:49)
[2020-03-05] MEDS ORDERED: Isoproterenol 0.2 MG/1 ML AMP ONE (14:23)
[2020-03-05] MEDS ORDERED: Protamine Sulfate 50 MG/5 ML VIAL ONE (15:46)
[2020-03-05] MEDS ORDERED: SUGAMMADEX SODIUM 200 MG/2 ML VIAL ONE (16:06)
[2020-03-05] MEDS ORDERED: Ketorolac Tromethamine 30 MG/ML VIAL IVP PRN (16:58)
[2020-03-05 19:19] VITALS: BMI 33.8
[2020-03-05] MEDS: Apixaban 5 MG TAB PO SCH (20:27)
[2020-03-05] MEDS: Calcium Carbonate 600 MG + Vit D TAB PO SCH (20:27)
[2020-03-05] MEDS: Gabapentin 300 MG CAP PO SCH (20:27)
[2020-03-05] MEDS: Sucralfate 1 GM TAB PO SCH (20:27)
[2020-03-05] MEDS: Vit A,C & E/Lutein/Minerals Tablet PO SCH (20:27)
[2020-03-05] MEDS: Atorvastatin Calcium 10 MG TAB PO SCH (20:28)
[2020-03-05] MEDS: Pramipexole Di-HCl 1 MG TAB PO SCH (20:28)
[2020-03-05] MEDS: Polyethylene Glycol OPTH DROP 15 ML BOT EA EYE SCH (20:28)
--- NOTE | 2020-03-05 22:52 | OP ---
DATE OF PROCEDURE: 03/05/2020 PROCEDURE PERFORMED: Electrophysiology study and radiofrequency ablation. ADDITIONAL REFERRING PHYSICIAN: Jason Stahl MD REASON FOR PROCEDURE: Ms. Dorsey is a 74-year-old woman with history of persistent atrial fibrillation. She had a Watchman device placed as well as pulmonary vein isolation performed in November 2018. She had subsequent late recurrence and it was refractory to flecainide. She is here for repeat EP study ablation. She has been anticoagulated with Eliquis. DESCRIPTION OF PROCEDURE: The patient received general anesthesia by Anesthesia specialist. The left and right femoral vein was prepped, draped, and cannulated under ultrasound guidance. On the left side, an 8 and an 11-Norwegian sheath were introduced. The 11-Norwegian sheath was used to advance intracardiac echocardiogram probe to the right atrium, which was used to monitor the transeptal procedure. The catheter manipulations as well as the pericardial space throughout the case was stopped. Also from left femoral vein, a Preface sheath was advanced to the IVC from which a Duo-Deca catheter was used to cannulate the CS and position was in the right atrium CS locations. From the right femoral veins, two 8-Norwegian sheath were introduced through which a ThermoCool SFST catheter was used to obtain a 3D map of right atrium and CS and HIS positions initially. Following that, the right-sided short sheaths were exchanged to two SL1 sheaths. IV heparin was administered at this point, and it was given in a bolus and drip fashion and heparin was adjusted to keep ACT over 350. Following that, a transseptal puncture was performed under fluoroscopy and intracardiac echo guidance with the help of a SeeVolution transseptal needle x2. The SL1 sheaths were used to advance a ThermoCool SFST catheter and a PentaRay catheter into the left atrium. 3D map of the left atrium was obtained revealing marked left atrial dilation as well as heavy scarring. The scar from prior ablation was noted on all 4 pulmonary veins as well as in the posterior wall. Spot re-connections on all 4 pulmonary veins were noted and seeked out and re-ablated. The posterior wall was re-isolated with special attention was paid to esophageal probe to avoid excessive heating and any heating was met with extra irrigation. Also, the floor of the left atrium was also re-ablated and isolated. Additional fractionated signals were seeked out over the CS roof, the floor of the left atrium, septal wall also laterally as well. by the left superior pulmonary vein and left inferior pulmonary vein as well. The attention was paid to the Watchman device throughout the case. Despite these efforts, the patient remained in atrial fibrillation. Cardioversion was performed. Isuprel was administered and any reconnection was re-ablated. The catheter was withdrawn to the right atrium. Additional PAC ablation was performed in the roof of the right atrium close to the interatrial septum and the IVC junction. Prior to that, high voltage pacing was performed to ascertain no diaphragmatic nerve capture at that location. The patient remained in sinus rhythm. Basic EP study was performed with the following findings; the sinus cycle length was 710 milliseconds, ME 88 milliseconds, QRS 48 milliseconds, QT 337 millisecond, HV 50 milliseconds. AV Wenckebach cycle length was 420 milliseconds and after AV Wenckebach cycle length was 460 milliseconds. Concentric retrograde VA conduction was seen. AV ERP was noted at 500/280 milliseconds. No dual AV node physiology was observed. Total of 97 lesion at 40 dean were delivered at total duration 21 minutes and 36 seconds. After this, the long sheaths were exchanged for short sheaths and IV heparin was stopped. Protamine was administered to reverse heparin effect. The Vascade closure was performed under ultrasound guidance on all 4 femoral venous access sites. CONCLUSION: 1. Baseline atrial fibrillation present. 2. Spot isolation of all 4 pulmonary veins was performed, but grossly all 4 pulmonary veins remained isolated from prior procedure. 3. Re-isolation of posterior wall was performed. 4. Isolation of the inferior floor of the left atrium performed over CS roof. 5. Additional lesions in the interatrial septum replaced and also the lateral wall and the left atrial roof was ablated. 6. Right atrial lesions were also delivered at early PAC site adjacent to the right atrial roof close to the SVC junction. 7. Normal AV earline and His-Purkinje function. 8. No pericardial effusion or change in cardiac silhouette noted by the end of the case, intracardiac echo and fluoroscopic monitoring. PLAN: Stop flecainide. Monitor recurrent arrhythmias. Continue oral anticoagulation at least 6 to 12 weeks. Job ID: [id number]
[2020-03-06 04:26] LABS: Platelet Count 157 thou/uL (130-400)
[2020-03-06] MEDS: Sucralfate 1 GM TAB PO SCH ×3 (05:38→20:58)
[2020-03-06] MEDS: Multivit, Therapeutic 1 TAB PO SCH (08:06)
[2020-03-06] MEDS: Furosemide 40 MG TAB PO SCH (08:06)
[2020-03-06] MEDS: Vit A,C & E/Lutein/Minerals Tablet PO SCH ×2 (08:06→20:57)
[2020-03-06] MEDS: Acetaminophen 325 MG TAB PO PRN ×2 (08:06→20:56)
[2020-03-06] MEDS: Apixaban 5 MG TAB PO SCH ×2 (08:06→20:57)
[2020-03-06] MEDS: Polyethylene Glycol OPTH DROP 15 ML BOT EA EYE SCH ×2 (08:06→20:58)
[2020-03-06] MEDS: Calcium Carbonate 600 MG + Vit D TAB PO SCH ×2 (08:06→20:57)
[2020-03-06] MEDS: Magnesium Oxide 400 MG TAB PO SCH (08:06)
[2020-03-06] MEDS: Carvedilol 6.25 MG TAB PO SCH ×2 (08:06→20:56)
[2020-03-06] MEDS ORDERED: Furosemide 40 MG/4 ML VIAL SLOW IVP SCH (08:27)
[2020-03-06] MEDS ORDERED: Potassium Chloride 20 MEQ TAB PO SCH (08:28)
[2020-03-06] MEDS ORDERED: FLU VACC QS2020-21(65YR UP)/PF 240 MCG/0.7 ML SYRINGE IM ONE (09:00)
[2020-03-06] MEDS ORDERED: Lisinopril 20 MG TAB PO SCH (09:00)
--- NOTE | 2020-03-06 14:55 | PDOC.BPN ---
- Brief Progress Note Encounter Date: 03/06/20 Encounter Time: 08:00 S: Persistent Atrial fibrillation s/p redo PVAI 03/05. She feels poorly this AM. + SOB, low grade fever, palpitations. O: + JVD, B/L crackles, labored breathing Groin sites stable Neuro intact A: 1. Prs AF s/p redo PVAI 2. CHF 3. OAC 4. LGF P: IV lasix 40mg IVP + KCl 20mEq stat. Resuming flecainide 100mg BID. Will reassess this afternoon if DC is still possible today. May require overnight stay for fluid optimization. Acetaminophen given for low grade temp.
--- NOTE | 2020-03-06 17:11 | PDOC.EP ---
- Subjective Date: 03/06/20 Time: 17:10 Interval History: s/p PVAI on 03/05/20. + Shortness of breath requiring supplemental O2. Low grade fever. weakness. - Review of Systems Constitutional: reports: weakness Respiratory: reports: shortness of breath Cardiology: reports: palpitations. denies: chest pain, edema, heart racing, light headedness, passing out Gastrointestinal: denies: abdominal pain, constipation, nausea, vomitting - Objective Allergies/Adverse Reactions: Allergies Allergy/AdvReac Type Severity Reaction Status Date / Time amoxicillin [From Augmentin] Allergy Nausea Verified 03/04/20 10:37 clavulanic acid Allergy Nausea Verified 03/04/20 10:37 [From Augmentin] nitrofurantoin Allergy Nausea Verified 03/04/20 10:37 [From Macrobid] Current Medications Acetaminophen (Acetaminophen 325 Mg Tab) 650 mg PO Q4H PRN PRN Reason: Headache/Fever or Pain Last Admin: 03/06/20 08:06 Dose: 650 mg Documented by: Apixaban (Apixaban 5 Mg Tab) 5 mg PO BID [facility] Last Admin: 03/06/20 08:06 Dose: 5 mg Documented by: Atorvastatin Calcium (Atorvastatin Calcium 10 Mg Tab) 10 mg PO [facility] Last Admin: 03/05/20 20:28 Dose: 10 mg Documented by: Calcium/Vitamin D (Calcium Carbonate 600 Mg + Vit D Tab) 1 tab PO BID [facility] Last Admin: 03/06/20 08:06 Dose: 1 tab Documented by: Carvedilol (Carvedilol 6.25 Mg Tab) 12.5 mg PO BID [facility] Last Admin: 03/06/20 08:06 Dose: 12.5 mg Documented by: Flecainide Acetate (Flecainide 50 Mg Tab) 100 mg PO Q12HR [facility] Furosemide (Furosemide 40 Mg Tab) 40 mg PO DAILY [facility] Last Admin: 03/06/20 08:06 Dose: 40 mg Documented by: Gabapentin (Gabapentin 300 Mg Cap) 300 mg PO [facility] Last Admin: 03/05/20 20:27 Dose: 300 mg Documented by: Ketorolac Tromethamine (Ketorolac Tromethamine 30 Mg/Ml Vial) 15 mg IVP Q6H PRN PRN Reason: Pain Stop: 03/10/20 16:59 Lisinopril (Lisinopril 20 Mg Tab) 20 mg PO DAILY [facility] Last Admin: 03/06/20 08:06 Dose: 20 mg Documented by: Magnesium Oxide (Magnesium Oxide 400 Mg Tab) 400 mg PO QAM [facility] Last Admin: 03/06/20 08:06 Dose: 400 mg Documented by: Multivitamins (Multivit, Therapeutic 1 Tab) 1 tab PO DAILY [facility] Last Admin: 03/06/20 08:06 Dose: 1 tab Documented by: Multivitamins/Minerals (Vit A,C & E/Lutein/Minerals Tablet) 1 tab PO BID [facility] Last Admin: 03/06/20 08:06 Dose: 1 tab Documented by: Pantoprazole Sodium (Pantoprazole 40 Mg Tab) 40 mg PO DAILY [facility] Stop: 03/19/20 09:01 Last Admin: 03/06/20 08:06 Dose: 40 mg Documented by: Pramipexole Dihydrochloride (Pramipexole Di-Hcl 1 Mg Tab) 1.5 mg PO HS [facility] Last Admin: 03/05/20 20:28 Dose: 1.5 mg Documented by: Propylene Glycol (Polyethylene Glycol Opth Drop 15 Ml Bot) 1 drop EA EYE BID [facility] Last Admin: 03/06/20 08:06 Dose: Not Given Documented by: Sucralfate (Sucralfate 1 Gm Tab) 1 gm PO Q8HR [facility] Stop: 03/19/20 22:01 Last Admin: 03/06/20 13:04 Dose: 1 gm Documented by: Vital Signs & Weight: Vital Signs Temp Pulse Resp BP Pulse Ox 03/06/20 16:00 98.4 F 57 L 17 108/49 L 93 L 03/06/20 11:53 98.4 F 56 L 17 90/46 L 94 L 03/06/20 08:06 100.4 F H 03/06/20 08:00 100.4 F H 94 18 144/65 H 93 L Weight 209 lb 9.6 oz I/O: I/O 03/05/20 03/06/20 03/07/20 06:59 06:59 06:59 Intake Total 600 Balance 600 - Quality Measures Condition: Atrial Fibrillation/Flutter (hx or current) - Physical Exam General: alert & oriented x3, appears well HEENT: mucus membranes moist, normocephaly Neck: supple neck, midline trachea, JVD/HJR Cardiology: regular rate and rhythm Lungs: bibasilar rales. negative: no wheezes, no rhonchi Neurology: cranial nerve 2-12 intact, grossly intact, no lateralizing findings Abdomen: unremarkable, active bowel sounds, no pulsations/bruits Extremities: dry, strong pulses, warm - Chadsvasc Risk factors Hypertension: 1 Age >75: 2 Female: 1 Risk Score: 4 - Labs Result Diagrams: 03/06/20 03:58 03/06/20 03:58 - EKG Interpretation EKG Method: Telemetry EKG shows: Sinus rhythm, Sinus bradycardia - Assessment/Plan Assessment/Plan: 1. Persistent atrial fibrillation -s/p redo PVAI 03/05/20 2. Congestive heart failure post ablation -LVEF 60-65% historically 3. Low grade fever 4. Shortness of breath -long standing issue, now worse - O2 via [place] CHF with SOB and early recurrence of AFib post ablation. Converted to SR, now in the high 50s-low 60s. Resuming flecainide 100mg BID. Low amplitude P wave due to prior atrial ablation. Unable to wean supplemental O2 with O2 sats dropping into the mid-high 80s. Would like to convert to inpatient status under residents (Primary care is Dr Plascencia) for management of medical issues. Rhythm has now stabilized but she may require longer stay to address her medical issues. Awaiting return call from resident pager.
[2020-03-06] MEDS: Gabapentin 300 MG CAP PO SCH (20:57)
[2020-03-06] MEDS: Atorvastatin Calcium 10 MG TAB PO SCH (20:57)
[2020-03-06] MEDS: Pramipexole Di-HCl 1 MG TAB PO SCH (20:57)
[2020-03-06] MEDS ORDERED: Flecainide 50 MG TAB PO SCH (21:00)
[2020-03-07 03:11] LABS: Actual Bicarbonate (HCO3a) 24.1 mEq/L (22-28); Base Excess (BEa) -1.8 mEq/L (-2.0 to +3.0); CO2 Tension 46.4 mmHg (35.0-45.0); Calcium, Ionized (arterial) 1.12 mmol/L (1.12-1.30); Carboxyhemoglobin (COHb) 1.4 gm% (0.0-3.0); Hemoglobin (Hb) 9.9 g/dL (12.0-16.0); O2 Tension (PaO2), arterial 162.4 mmHg (> 70.0); Potassium - ABG Lab 4.32 mmol/L (3.70-5.30); pH, Arterial 7.33 (7.35-7.45)
[2020-03-07 03:13] LABS: Puncture Site RRA
--- NOTE | 2020-03-07 03:35 | PDOC.EVN ---
Event Note - Event Note Event Note: Code green. See note. Patient in resp. distress. Tachypneic, bradycardic, hypotensive, hypoxic. Placed on NRB by RT. Ordered EKG, CXR, BNP, BMP and CBC. CXR consistent with FVO. Bipap, transfer CCU. Ekg afib, HR 50s, give calcium gluconate 1gm IVP x 1 dose, per Dr. Johnson
[2020-03-07 03:56] LABS: Anion Gap 19 mmol/L (10-20); BUN (Urea Nitrogen) 27 mg/dL (9.8-20.1); Calc. Creatinine Clearance 46 mL/min (70-130); Calcium 8.2 mg/dL (7.8-10.44); Carbon Dioxide 19 mmol/L (23-31); Chloride 107 mmol/L (98-107); Estimated GFR-MDRD 33; Glucose 166 mg/dL (83-110); Potassium 4.8 mmol/L (3.5-5.1); Sodium 140 mmol/L (136-145)
[2020-03-07 04:00] LABS: Troponin I 2.799 ng/mL (< 0.028)
[2020-03-07] MEDS ORDERED: Calcium Gluc 4.6 MEQ/10 ML (100 MG/ML) SLOW IVP SCH (04:08)
[2020-03-07 04:11] LABS: #Eosinphils 0.1 thou/uL (0.0-0.7); #Lymphocytes 0.7 thou/uL (1.20-3.40); #Neutrophils 11.6 thou/uL (1.40-6.50); %Lymphocytes 5.4 % (21.0-51.0); %Monocytes 7.7 % (0.0-10.0); %Neutrophils 85.9 % (42.0-75.0); Anisocytosis SLIGHT = 6-15 cells (100X) (0-5/hpf); MDiff Complete? YES; Mean Corpuscular HGB CONC 32.3 g/dL (32.0-36.0); Mean Corpuscular Hemoglobin 32.4 pg (27.0-31.0); Mean Platelet Volume 9.6 fL (7.4-10.4); Platelet Count 112 thou/uL (130-400); Platelet Morphology Comment Appears Adequate; RBC Distribution Width 17.7 % (11.5-14.5); Red Blood Cell (RBC) Count 3.09 mill/uL (4.20-5.40); White Blood Cell (WBC) Count 13.5 thou/uL (4.8-10.8)
[2020-03-07] MEDS ORDERED: Sodium Chloride 0.9% 250 ML IVPB SCH (06:00)
[2020-03-07 07:24] LABS: Critical Call Chem Troponin I RESULT DECREASING; Troponin I 2.235 ng/mL (< 0.028)
--- NOTE | 2020-03-07 08:20 | RAD ---
PORTABLE CHEST: HISTORY: Dyspnea. COMPARISON: 06/22/2019. FINDINGS: Cardiomegaly is stable. Left hemidiaphragm is obscured and there is evidence of bilateral effusions and associated left basilar atelectasis. Mild vascular congestion. Hazy infiltrate in the right low er lung. IMPRESSION: Cardiomegaly with mild vascular congestion. Bilateral effusions and bibasilar infiltrates and/or ate lectasis. POS: OFF
[2020-03-07] MEDS ORDERED: DOPamine 400 MG/D5W 250 ML 250 ML ONE (08:24)
[2020-03-07] MEDS ORDERED: Lisinopril 10 MG TAB PO SCH (09:00)
[2020-03-07] MEDS: Sucralfate 1 GM TAB PO SCH ×2 (09:03→14:23)
[2020-03-07] MEDS: Vit A,C & E/Lutein/Minerals Tablet PO SCH ×2 (09:04→21:05)
[2020-03-07] MEDS: Calcium Carbonate 600 MG + Vit D TAB PO SCH ×2 (09:04→21:02)
[2020-03-07] MEDS: Furosemide 40 MG TAB PO SCH ×2 (09:04→11:45)
[2020-03-07] MEDS: Magnesium Oxide 400 MG TAB PO SCH (09:04)
[2020-03-07] MEDS: Multivit, Therapeutic 1 TAB PO SCH (09:04)
[2020-03-07] MEDS: Cefepime 1 GM in Sodium Chloride 0.9% 100 ML IVPB SCH ×2 (09:59→21:03)
[2020-03-07] MEDS ORDERED: DOPamine 400 MG/D5W 250 ML 250 ML IVPB SCH (10:00)
[2020-03-07] MEDS: Polyethylene Glycol OPTH DROP 15 ML BOT EA EYE SCH ×2 (10:37→21:10)
[2020-03-07 11:37] LABS: Critical Call Chem Troponin I RESULT DECREASING; Troponin I 2.004 ng/mL (< 0.028)
--- NOTE | 2020-03-07 12:46 | PDOC.EP ---
- Subjective Date: 03/07/20 Time: 12:44 Interval History: Pt developed progressive hypotension and bradycardia overnight. Suboptimal response to fluid bolus, but good response to low-med dose iv Dopamin. Dyspnea persists. - Review of Systems Constitutional: reports: malaise, weakness. denies: chills, fever Respiratory: reports: cough, dry, shortness of breath, SOB with excertion. denies: pleuritic pain, sputum, wheezing Cardiology: reports: palpitations. denies: chest pain, passing out, pleuritic pain, pressure, swelling Gastrointestinal: denies: abdominal pain, constipation, nausea, vomitting Neurological: denies: headache, vision changes - Objective Allergies/Adverse Reactions: Allergies Allergy/AdvReac Type Severity Reaction Status Date / Time amoxicillin [From Augmentin] Allergy Nausea Verified 03/04/20 10:37 clavulanic acid Allergy Nausea Verified 03/04/20 10:37 [From Augmentin] nitrofurantoin Allergy Nausea Verified 03/04/20 10:37 [From Macrobid] Current Medications Acetaminophen (Acetaminophen 325 Mg Tab) 650 mg PO Q4H PRN PRN Reason: Headache/Fever or Pain Last Admin: 03/06/20 20:56 Dose: 650 mg Documented by: Albuterol/Ipratropium (Ipratropium/Albuterol Sulfate 3 Ml Neb) 3 ml NEB [id number] [facility] Last Admin: 03/07/20 12:25 Dose: 3 ml Documented by: Apixaban (Apixaban 5 Mg Tab) 5 mg PO BID [facility] Atorvastatin Calcium (Atorvastatin Calcium 10 Mg Tab) 10 mg PO [facility] Last Admin: 03/06/20 20:57 Dose: 10 mg Documented by: Calcium/Vitamin D (Calcium Carbonate 600 Mg + Vit D Tab) 1 tab PO BID [facility] Last Admin: 03/07/20 09:04 Dose: Not Given Documented by: Furosemide (Furosemide 40 Mg Tab) 40 mg PO DAILY [facility] Last Admin: 03/07/20 11:45 Dose: 40 mg Documented by: Gabapentin (Gabapentin 300 Mg Cap) 300 mg PO [facility] Last Admin: 03/06/20 20:57 Dose: 300 mg Documented by: Cefepime HCl 1 gm/ Sodium (Chloride) 100 mls @ 200 mls/hr IVPB Q12HR [facility] Last Admin: 03/07/20 09:59 Dose: 100 mls Documented by: Dopamine HCl/Dextrose (Dopamine 400 Mg/D5w 250 Ml) 250 mls @ 0 mls/hr IVPB INF [facility]; Protocol Ketorolac Tromethamine (Ketorolac Tromethamine 30 Mg/Ml Vial) 15 mg IVP Q6H PRN PRN Reason: Pain Stop: 03/10/20 16:59 Magnesium Oxide (Magnesium Oxide 400 Mg Tab) 400 mg PO QAM [facility] Last Admin: 03/07/20 09:04 Dose: Not Given Documented by: Multivitamins (Multivit, Therapeutic 1 Tab) 1 tab PO DAILY [facility] Last Admin: 03/07/20 09:04 Dose: Not Given Documented by: Multivitamins/Minerals (Vit A,C & E/Lutein/Minerals Tablet) 1 tab PO BID [facility] Last Admin: 03/07/20 09:04 Dose: Not Given Documented by: Pantoprazole Sodium (Pantoprazole 40 Mg Tab) 40 mg PO DAILY [facility] Stop: 03/19/20 09:01 Last Admin: 03/07/20 11:45 Dose: 40 mg Documented by: Pramipexole Dihydrochloride (Pramipexole Di-Hcl 1 Mg Tab) 1.5 mg PO HS [facility] Last Admin: 03/06/20 20:57 Dose: 1.5 mg Documented by: Propylene Glycol (Polyethylene Glycol Opth Drop 15 Ml Bot) 1 drop EA EYE BID [facility] Last Admin: 03/07/20 10:37 Dose: 1 drp Documented by: Sodium Chloride (Flush - Normal Saline 10 Ml Syringe) 10 ml IVF Q12HR [facility] Sodium Chloride (Flush - Normal Saline 10 Ml Syringe) 10 ml IVF PRN PRN PRN Reason: Saline Flush Sucralfate (Sucralfate 1 Gm Tab) 1 gm PO Q8HR [facility] Stop: 03/19/20 22:01 Last Admin: 03/07/20 09:03 Dose: Not Given Documented by: Vital Signs & Weight: Vital Signs Temp Pulse Resp Pulse Ox 03/07/20 12:25 77 23 H 100 03/07/20 10:48 93 L 03/07/20 10:15 94 L 03/07/20 09:00 98.7 F 03/07/20 08:26 56 L 03/07/20 08:00 93 L 03/07/20 05:37 97.4 F L 03/07/20 03:30 100 Weight 209 lb 9.6 oz I/O: I/O 03/06/20 03/07/20 03/08/20 06:59 06:59 06:59 Intake Total 600 960 140 Output Total 0 1 Balance 600 960 139 - Quality Measures Condition: Atrial Fibrillation/Flutter (hx or current) CV meds: Eliquis: Yes - Physical Exam General: alert & oriented x3, affect appropriate HEENT: EOMI Neck: supple neck, no thromegaly Cardiology: irregularly irregular, systolic murmur. negative: tachycardia, bradycardia Lungs: clear to auscultation, oxygen (NC) Neurology: grossly intact Abdomen: unremarkable, active bowel sounds, soft, non-tender Extremities: warm Skin: groin sites stable Musculoskeletal: no pain, no fluid collection - Chadsvasc Risk factors Congestive heart failure: 1 Hypertension: 1 Age >75: 2 Female: 1 Risk Score: 5 - Labs Result Diagrams: 03/07/20 03:24 03/07/20 03:24 - EKG Interpretation EKG Method: 12 Lead EKG shows: Atrial fibrillation - Assessment/Plan Assessment/Plan: 1. Persistent atrial fibrillation -s/p redo PVAI 03/05/20 2. Congestive heart failure post ablation -LVEF 60-65% in past andf curetn ECHO on dopamin. 3. Low grade fever on POD#1. - resolved. BCX sent 11/ am. 4. Shortness of breath -long standing issue, now worse - O2 via [place] CHF with SOB and early recurrence of AFib post ablation. Converted to SR, now in the high 50s-low 60s. Resuming flecainide 100mg BID. Low amplitude P wave due to prior atrial ablation. Unable to wean supplemental O2 with O2 sats dropping into the mid-high 80s. 03/07/20: Developed progressive Hypotension and Bradycardia overnight. Respon ded to medium dose Dopamin. 2D ECHo reveals no sign pericardial effusion, Good LVEF on ongoing Dopamin. RV/RA/IVC/LA dilalted. Rrenal function significantly worsened. Will resume IV lasix. Monitor closely. Plan to hold PO flecainde , antihypotensives(coreg and lisinopril) and resume gradually. Continue OAC. Rule out infection, BCX sent. Would like to convert to inpatient status under residents (Primary care is Dr Plascencia) for management of medical issues. Will also consult Cardiology, Dr Inman. She may require longer stay to address her medical issues. Discussed with resident/RN/Dr Inman rail transportation tabeler.
[2020-03-07] MEDS ORDERED: Apixaban 5 MG TAB PO SCH ×2 (13:00→21:00)
--- NOTE | 2020-03-07 13:13 | PDOC.FPRHP ---
- History of Present Illness Chief Complaint: SOB History of Present Illness: Pt is a 74 yo F with PMH of HTN, AFib, GERD, and RLS here after outpatient ablation on 03/[address] Belcher who has had eventful postoperative course. According to the chart, she did not initially convert out of Afib after procedure, she was also having some SOB and had a fever of 100.4. Last night she had a code green where she became hypoxic, dyspnic, hypotensive. She had an CXR which showed some vascular congestion, troponins which are elevated, BNP that is elevated. ABG showed ?respiratory acidosis. She was placed on Bipap overnight and dopamine and moved to the CCU. Today she is on NC but reports continued dyspnea. She denies COVID exposure, cough, dysuria, hematuria, frequency, urgency. JACKIE- Igor (daughter), Maximusyung Dorsey - Allergies/Adverse Reactions Allergies Allergy/AdvReac Type Severity Reaction Status Date / Time amoxicillin [From Augmentin] Allergy Nausea Verified 03/04/20 10:37 clavulanic acid Allergy Nausea Verified 03/04/20 10:37 [From Augmentin] nitrofurantoin Allergy Nausea Verified 03/04/20 10:37 [From Macrobid] - Home Medications Medication Instructions Recorded Confirmed Type Calcium Carbonate + Vit D 1 tab PO BID 04/16/13 03/05/20 History [Caltrate 600 + Vit D] Lisinopril 20 mg PO QAM 04/16/13 03/05/20 History Magnesium Oxide [Magnesium] 400 mg PO QAM 04/16/13 03/05/20 History Multivitamin [Multivitamins] 1 cap PO QAM 04/16/13 03/05/20 History Pantoprazole [Protonix] 40 mg PO QAM 04/16/13 03/05/20 History Atorvastatin Calcium [Lipitor] 10 mg PO HS 10/11/16 03/05/20 History Gabapentin 300 mg PO HS 01/26/17 03/05/20 History Carvedilol 12.5 mg PO BID 10/04/17 03/05/20 History Furosemide 40 mg PO DAILY PRN 10/04/17 03/05/20 History Pramipexole Di-HCl [Mirapex] 1.5 mg PO HS 11/17/17 03/05/20 History Alendronate Sodium 1 tab PO Q7D 01/05/19 03/05/20 History Apixaban [Eliquis] 5 mg PO BID 03/04/20 03/05/20 History Propylene Glycol/PEG 400/PF 1 each OP BID 03/04/20 03/05/20 History [Systane 0.3-0.4% Eye Drops] Vit C/E/Zn/Coppr/Lutein/Zeaxan 1 capsule PO BID 03/04/20 03/04/20 History [PreserVision Areds 2 Softgel] - History PMHx: HTN, RLS, Afib, GERD PSHx: L knee replacement, Ablation (Dave) in November in 2019, Hysterectomy, Watchman 2019, Cholecystecomy, BCC on face FHx: none Social: Occasional etoh use, prior tobacco use for short term, denies drug use. - Review of Systems General: denies: fever/chills Eyes: denies: vision changes ENT: denies: nasal congestion, rhinorrhea Respiratory: reports: shortness of breath. denies: cough, congestion Cardiovascular: reports: edema. denies: chest pain Gastrointestinal: denies: nausea, vomiting, diarrhea, constipation, abdominal pain Genitourinary: denies: dysuria Skin: denies: rashes Musculoskeletal: denies: pain Neurological: denies: weakness - Vital signs BP: 117/77 HR: 69 RR: 24 Tmax:98.2 Pox: 97% on 3L Wt: 95 kg - Physical Exam Constitutional: NAD, awake, alert and oriented HEENT: conjunctiva clear, normal nasal mucosa, MMM, oropharynx clear Neck: supple, trachea midline Heart: normal S1/S2 -Heart: afib Lungs: CTAB Abdomen: soft, non-tender Musculoskeletal: normal structure, normal tone Neurological: CN II-XII intact, normal sensation -Skin: bruising on arms Heme/Lymphatic: no unusual bruising or bleeding, no purpura, no petechia Psychiatric: normal mood and affect FMR H&P: Results - Labs Result Diagrams: 03/07/20 03:24 03/07/20 03:24 Lab results: WBC 13.5 thou/uL (4.8-10.8) H 03/07/20 03:24 Hgb 10.0 g/dL (12.0-16.0) L 03/07/20 03:24 Hct 30.9 % (36.0-47.0) L 03/07/20 03:24 MCV 100.0 fL (78.0-98.0) H 03/07/20 03:24 Plt Count 112 thou/uL (130-400) L 03/07/20 03:24 Neutrophils % 85.9 % (42.0-75.0) H 03/07/20 03:24 ABG pH 7.33 (7.35-7.45) L 03/07/20 03:05 ABG pCO2 46.4 mmHg (35.0-45.0) H 03/07/20 03:05 ABG pO2 162.4 mmHg (> 70.0) H 03/07/20 03:05 Sodium 140 mmol/L (136-145) 03/07/20 03:24 Potassium 4.8 mmol/L (3.5-5.1) 03/07/20 03:24 Chloride 107 mmol/L (98-107) 03/07/20 03:24 Carbon Dioxide 19 mmol/L (23-31) L 03/07/20 03:24 BUN 27 mg/dL (9.8-20.1) H 03/07/20 03:24 Creatinine 1.55 mg/dL (0.6-1.1) H 03/07/20 03:24 Glucose 166 mg/dL (83-110) H 03/07/20 03:24 Calcium 8.2 mg/dL (7.8-10.44) 03/07/20 03:24 B-Natriuretic Peptide 459.4 pg/mL (0-100) H 03/07/20 03:24 - EKG Interpretation EKG: Afib, normal QTc, normal axis, with t wave inversion in anterolateral leads FMR H&P: A/P - Problem List (1) Acute and chronic respiratory failure with hypoxia Current Visit: Yes Status: Acute Code(s): J96.21 - ACUTE AND CHRONIC RESPIRATORY FAILURE WITH HYPOXIA (2) CHF exacerbation Current Visit: Yes Status: Acute Code(s): I50.9 - HEART FAILURE, UNSPECIFIED (3) GERD (gastroesophageal reflux disease) Current Visit: No Status: Chronic Code(s): K21.9 - GASTRO-ESOPHAGEAL REFLUX DISEASE WITHOUT ESOPHAGITIS (4) HTN (hypertension) Current Visit: No Status: Chronic Code(s): I10 - ESSENTIAL (PRIMARY) HYPERTENSION (5) Paroxysmal A-fib Current Visit: No Status: Chronic Code(s): I48.0 - PAROXYSMAL ATRIAL FIBRILLATION (6) Restless leg Current Visit: No Status: Chronic - Plan Ms. Dorsey is a 74 yo F with afib, HTN, and RLS who presented for Ablation and had increased SOB. 1. Acute Hypoxic Respiratory Failure 2/2 Likely Right Heart Failure : -Currently on NC, required BIPAP overnight -BNP 500's -Home Lasix resumed today -In setting of hypotension, 2D echo done per Ye and no s/sx of pericardial effusion, does report RA/RV/IVC/LA dilation with increased pulmonary artery pressure -ABG with pH 7.33, pCO2 46.4, pO2 162, Bicarb 24, respiratory acidosis with secondary metabolic acidosis -Repeat CXR tomorrow 2. SIRS without a source: -Hypotensive requiring dopamine at 2.5mcg/min, fever up to 100.4, tachypnea and hypoxia on NC -Pre-op COVID on 02/28 negative, repeat pending -CXR without infiltrate, will get Blood cx, urine cx, and UA -Will also get a procal -Currently on Cefepime, continue. 3. TIMMY: -unsure of cause, likely cardiorenal -FeUrea to determine cause. -BMP tomorrow to trend 4. Afib s/p Ablation, now in NSR: -Dr. Belcher discontinued Flecainide today -Eliquis BID per his recs 5. NSTEMI, type 2 -Likely 2/2 recent ablation -No active CP, consider -EKG showed afib with T wave inversions in the anterolateral leads 6. HTN: -Hold antihypertensives while hypotensive 7. RLS: -Resume home gabapentin 8. GERD: -Resume home protonix Code Status: DNR-DNI IVF: SL DVT PPx: Eliquis GI PPx: Protonix Code Status: DNR/DNI Dispo: Currently inpatient IMCU, will work up for possible source of fever and leukocytosis. Will work for resolution of TIMMY. Cardiol FMR H&P: Upper Level - Plan Date/Time: 03/07/20 1309 I, Dr. Phoebe Isabel, have evaluated this patient and agree with findings/plan as outlined by digital marketing intern resident. Pertinent changes/additions are listed here. Addendum - Attending - Attending Attestation Date/Time: 03/07/20 3970 I personally evaluated the patient and discussed the management with Dr. Howell I agree with the History, Examination, Assessment and Plan documented above with any addition or exceptions noted below. Patient admitted after experiencing hypotension following outpatient ablation for a-fib. She is currently on dobutamin gtt. Dr. Inman to see today. Appears to be in HFpEF exacerbation with concern for right sided HF (RVESP 41mmHg) and with and TIMMY likely 2/2 hypoperfusion/cardiogenic shock. Continue dobutamine gtt, trend renal function. will add LFTs on labs tomorrow.
--- NOTE | 2020-03-07 13:59 | CON ---
DATE OF CONSULTATION: 03/07/2020 HISTORY OF PRESENT ILLNESS: Yolanda Dorsey is a 74-year-old morbidly obese female, who was transferred to the ICU after she was hypoxic. She is on a BiPAP, awake, alert, responsive. Saturations about 90% to 95% on 30%. PAST MEDICAL HISTORY: Pertinent for chronic atrial fibrillation, status post ablation, Watchman procedure, she has CHF. PREVIOUS SURGERIES: Cardioversion, hysterectomy, cystectomy, left total knee, ablation, colonoscopy. SOCIAL HISTORY: Alcohol or tobacco unknown at this time. HOME MEDICATIONS: Include: 1. Mirapex 1.5. 2. Protonix 40. 3. . 4. Gabapentin 300. 5. Lasix 40. 6. Coreg 12.5. 7. Lipitor 10. 8. Eliquis 5. ALLERGIES: PENICILLIN, NITROFURANTOIN. REVIEW OF SYSTEMS: Otherwise, unremarkable. PHYSICAL EXAMINATION: VITAL SIGNS: Temperature 97, blood pressure 150/45, pulse 60, respirations 18, saturations 90%. CHEST: Bilateral crackles without any wheezing. CARDIAC: Normal S1 and S2. No gallops. ABDOMEN: No masses. LABORATORY DATA: White count 13,000, H and H of 10 and , platelet count is 112. PO2 of 162, pCO2 of 46 on non-rebreather. Creatinine 1.5. Troponin is 2.3. BNP is 455. X-ray shows CHF, cardiomegaly. IMPRESSION: 1. Respiratory failure secondary to congestive heart failure. 2. Morbid obesity. 3. Renal failure, chronic pain syndrome. PLAN: Try high flow. Continue empiric antibiotics. Supportive care. Cardiac care. We will follow. Consultation note, 70 minutes, 50% direct patient care. Job ID: [id number]
--- NOTE | 2020-03-07 14:20 | CON ---
DATE OF CONSULTATION: 03/07/2020 REASON FOR CONSULTATION: Hypotension, congestive heart failure. PRIMARY PRIMARY GRADE TEACHER: Jason Stahl MD HISTORY OF PRESENT ILLNESS: Ms. Dorsey is a very pleasant 74-year-old woman with history of atrial fibrillation who had successful atrial fibrillation ablation a couple days ago. The patient had gone back into atrial fibrillation. She has been started on flecainide, also on carvedilol and lisinopril. The patient became hypotensive and very short of breath. She required transfer to the intensive care unit with BiPAP. This morning, the flecainide was stopped and metoprolol was held. She was bradycardic earlier, but now her heart rhythm is back to fibrillation, but the rate is in the 70 to 80. She is feeling better. MEDICATIONS: As outlined above. She is also on dopamine now, dose being decreased. REVIEW OF SYSTEMS: CONSTITUTIONAL: Positive for weakness and fatigue. VISION: No changes. HEARING: No changes. PULMONARY: She is short of breath. CARDIAC: She is short of breath. No chest pain. GASTROINTESTINAL: No nausea, vomiting, or diarrhea. SKIN: No rashes. NEUROLOGIC: No unilateral weakness or numbness. PSYCHIATRIC: No unusual depression or anxiety. PHYSICAL EXAMINATION: GENERAL: This is a pleasant, elderly female. Earlier this morning, she was very short of breath and had a BiPAP mask. She looks much more comfortable. VITAL SIGNS: Blood pressure earlier was in the 80s systolic, pulse earlier was in the 60 to 70 and now it is in the 70 to 80 range. LUNGS: Distant breath sounds. CARDIAC: Irregularly irregular with distant heart sounds. ABDOMEN: Obese and nontender. No hepatosplenomegaly. EXTREMITIES: Warm and dry. No clubbing or cyanosis. There is moderate edema. PERTINENT LABORATORY DATA: Troponin level 2.235, earlier 2.799. EKG did not show any acute changes. Creatinine 1.55. Previously, the patient had cardiac catheterization, showing normal coronary arteries. Chest x-ray shows cardiomegaly with pulmonary vascular congestion, congestive heart failure. ASSESSMENT: 1. History of atrial fibrillation with diastolic heart failure. 2. Status post atrial fibrillation ablation. 3. Exacerbation of heart failure, probably multifactorial including fluid, flecainide, and recent ablation. 4. Bradycardia, multifactorial including medication. PLAN: 1. Flecainide has been stopped. 2. Hold carvedilol. 3. Intravenous diuretics. 4. Stat echo was done. There is no effusion. We wanted to make sure there is no tamponade. She has normal left ventricular function. We will continue to follow with you. It looks like the main problem at this point is decompensation due to diastolic heart failure. Job ID: [id number]
[2020-03-07] MEDS ORDERED: Furosemide 40 MG/4 ML VIAL SLOW IVP SCH (14:30)
[2020-03-07 16:21] LABS: Bacteria/HPF None Seen HPF (None Seen); RBC/HPF 0-3 HPF (0-3); Squamous Epithelial 0-3 HPF (0-3); WBC/HPF 0-3 HPF (0-3)
[2020-03-07 16:32] LABS: SARS-CoV-2 MS2 Positive; SARS-CoV-2 N Gene Negative; SARS-CoV-2 S Gene Negative; SARS-CoV-2 by NAA Not Detected (NotDetected); SARS-CoV-2 orf1ab Negative
[2020-03-07 16:35] LABS: Creatinine, Urine 55.9 mg/dL (47-110)
[2020-03-07] MEDS: Atorvastatin Calcium 10 MG TAB PO SCH (21:02)
[2020-03-07] MEDS: Apixaban 5 MG TAB PO SCH (21:02)
[2020-03-07] MEDS: Gabapentin 300 MG CAP PO SCH (21:03)
[2020-03-07] MEDS: Pramipexole Di-HCl 1 MG TAB PO SCH (21:04)
[2020-03-08] MEDS: Sucralfate 1 GM TAB PO SCH ×4 (00:31→21:16)
--- NOTE | 2020-03-08 06:07 | PDOC.FM ---
- Subjective Subjective: No acute events overnight. Patient is resting comfortably in bed. She denies CP, Abdominal pain. Report dyspnea with exertion. Placed on bipap overnight due to feeling fatigued and increased breathing effort. On rounds this morning, on 3L NC. - Objective MAR Reviewed: Yes Vital Signs & Weight: Vital Signs (12 hours) Temp Pulse Resp Pulse Ox 03/08/20 04:33 66 03/08/20 04:00 98.8 F 03/08/20 01:23 70 25 H 98 03/07/20 23:00 98.7 F 03/07/20 20:00 99.3 F 95 03/07/20 18:34 68 19 90 L Weight Weight 95.073 kg Most Recent Monitor Data Heart Rate from ECG 68 NIBP 134/54 NIBP BP-Mean 80 Respiration from ECG 21 SpO2 100 I&O: 03/06/20 03/07/20 03/08/20 06:59 06:59 06:59 Intake Total 600 960 580 Output Total 0 528 Balance 600 960 52 Result Diagrams: 03/08/20 08:37 03/08/20 08:37 EKG Reviewed by me: Yes (Afib, rate controlled) Phys Exam - Physical Examination Constitutional: NAD HEENT: moist MMs Neck: supple, full ROM Respiratory: no wheezing, no rales, no rhonchi, clear to auscultation bilateral Cardiovascular: no significant murmur irregularly irregular Gastrointestinal: soft, non-tender, positive bowel sounds trace edema Neurological: moves all 4 limbs Psychiatric: normal affect, A&O x 3 Skin: no rash Dx/Plan - Plan Plan: 1. Acute Hypoxic Respiratory Failure 2/2 Likely Right Heart Failure : -Currently on 3LNC, required BIPAP overnight -BNP 500's -Home Lasix resumed today -In setting of hypotension, 2D echo done per [facility] and no s/sx of pericardial effusion, does report RA/RV/IVC/LA dilation with increased pulmonary artery pressure -ABG with pH 7.33, pCO2 46.4, pO2 162, Bicarb 24, respiratory acidosis with secondary metabolic acidosis -Repeat CXR tomorrow 2. SIRS without a source: -Hypotensive requiring dopamine at 2.5mcg/min, dopamine stopped at 0615 on 03/08, will monitor pressures -fever up to 100.4, tachypnea and hypoxia on NC -Pre-op COVID on 02/28 negative, repeat negative -CXR without infiltrate, will repeat tomorrow -will get Blood cx, urine cx pending -Procal: 0.27 -Currently on Cefepime, will continue for now pending cx results 3. TIMMY, improving -unsure of cause, likely cardiorenal -Cr: 1.55 > 1.08 -BUN: 32 > 27 -will continue to monitor 4. Afib s/p Ablation, in Afib but rate controlled -Dr. Belcher discontinued Flecainide 03/07 -Eliquis BID per his recs 5. NSTEMI, type 2 -Likely 2/2 recent ablation -No active CP -EKG showed afib with T wave inversions in the anterolateral leads 6. HTN: -Hold antihypertensives while hypotensive 7. RLS: -Resume home gabapentin 8. GERD: -Resume home protonix Dispo: will monitor on IMCU, could potentially be moved to tele later today pending BP. Addendum - Attending - Attending Attestation Date/Time: 03/08/20 0955 I personally evaluated the patient and discussed the management with Dr. Arik buckner. I agree with the History, Examination, Assessment and Plan documented above with any addition or exceptions noted below. Will proceed with additional diuretics. Pt able to come off dobutamine earlier this morning. Will continue to monitor fluid status.
[2020-03-08] MEDS: Furosemide 40 MG TAB PO SCH (08:10)
[2020-03-08] MEDS: Calcium Carbonate 600 MG + Vit D TAB PO SCH ×2 (08:10→21:15)
[2020-03-08] MEDS: Apixaban 5 MG TAB PO SCH ×2 (08:10→21:15)
[2020-03-08] MEDS: Multivit, Therapeutic 1 TAB PO SCH (08:10)
[2020-03-08] MEDS: Magnesium Oxide 400 MG TAB PO SCH (08:10)
[2020-03-08] MEDS: Vit A,C & E/Lutein/Minerals Tablet PO SCH ×2 (08:11→21:15)
[2020-03-08] MEDS: Cefepime 1 GM in Sodium Chloride 0.9% 100 ML IVPB SCH ×2 (08:15→21:14)
[2020-03-08] MEDS ORDERED: Polyethylene Glycol 3350 17 GM Packet PO PRN (08:57)
[2020-03-08] MEDS ORDERED: Polyethylene Glycol 3350 17 GM Packet PO SCH (09:00)
[2020-03-08 09:15] LABS: #Eosinphils 0.2 thou/uL (0.0-0.7); #Lymphocytes 0.7 thou/uL (1.20-3.40); #Monocytes 0.5 thou/uL (0.11-0.59); #Neutrophils 7.5 thou/uL (1.40-6.50); %Basophils 0.1 % (0.0-1.0); %Lymphocytes 7.4 % (21.0-51.0); %Monocytes 5.5 % (0.0-10.0); Hemoglobin 9.2 g/dL (12.0-16.0); Mean Corpuscular HGB CONC 31.7 g/dL (32.0-36.0); Mean Corpuscular Hemoglobin 31.1 pg (27.0-31.0); Mean Corpuscular Volume 98.2 fL (78.0-98.0); Mean Platelet Volume 9.4 fL (7.4-10.4); Platelet Count 151 thou/uL (130-400); RBC Distribution Width 17.3 % (11.5-14.5); Red Blood Cell (RBC) Count 2.96 mill/uL (4.20-5.40); White Blood Cell (WBC) Count 8.8 thou/uL (4.8-10.8)
[2020-03-08] MEDS ORDERED: Furosemide 40 MG/4 ML VIAL SLOW IVP SCH (09:15)
[2020-03-08 09:25] LABS: Anion Gap 13 mmol/L (10-20); BUN (Urea Nitrogen) 32 mg/dL (9.8-20.1); Calc. Creatinine Clearance 69 mL/min (70-130); Calcium 8.6 mg/dL (7.8-10.44); Carbon Dioxide 26 mmol/L (23-31); Chloride 106 mmol/L (98-107); Estimated GFR-MDRD 49; Glucose 151 mg/dL (83-110); Potassium 4.3 mmol/L (3.5-5.1); Sodium 141 mmol/L (136-145)
[2020-03-08] MEDS: Polyethylene Glycol OPTH DROP 15 ML BOT EA EYE SCH ×2 (09:25→21:15)
--- NOTE | 2020-03-08 09:29 | PRG ---
DATE OF SERVICE: 03/08/2020 SUBJECTIVE: Ms. Dorsey is feeling better, but not breathing normally. She says that she feels "a little better." She is sitting up in a chair. OBJECTIVE: VITAL SIGNS: Her blood pressure is 130/50, pulse 70. LUNGS: Clear anteriorly and posteriorly. She still has rales at the bases. CARDIAC: Irregularly irregular. ABDOMEN: Soft, nontender. ASSESSMENT: 1. Status post atrial fibrillation ablation. 2. Diastolic heart failure, still in heart failure. PLAN: 1. We will give her intravenous diuretics. She got oral this morning, but still is in heart failure. 2. She has been taken off flecainide. 3. She is on apixaban. 4. Repeat chest x-ray tomorrow. 5. We will probably keep her in the intensive care unit another day. Job ID: [id number]
[2020-03-08] MEDS ORDERED: Benzonatate 100 MG CAP PO PRN (10:03)
--- NOTE | 2020-03-08 10:21 | PRG ---
DATE OF SERVICE: 03/08/2020 SUBJECTIVE: She is off the BiPAP. She is doing better. She is less short of breath. She is coughing, but no real wheezing. No chest pain, chills, or sweats. OBJECTIVE: VITAL SIGNS: Pulse 63, blood pressure 180/80, saturations 100%, respiratory rate 18. CHEST: No wheezing. No crackles. CARDIAC: Normal S1 and S2. No gallops. ABDOMEN: No masses. IMPRESSION: Respiratory failure, status post ablation, cough, congestive heart failure. PLAN: Labs are unremarkable. P.r.n. cough drops. Supportive care. Review chest x-ray. If looks good, may consider discontinuing the antibiotics. Job ID: [id number]
[2020-03-08] MEDS: Furosemide 40 MG/4 ML VIAL SLOW IVP SCH (13:53)
[2020-03-08] MEDS: Pramipexole Di-HCl 1 MG TAB PO SCH (21:14)
[2020-03-08] MEDS: Atorvastatin Calcium 10 MG TAB PO SCH (21:14)
[2020-03-08] MEDS: Gabapentin 300 MG CAP PO SCH (21:15)
[2020-03-08] MEDS: Acetaminophen 325 MG TAB PO PRN (22:04)
[2020-03-09 04:55] LABS: Hemoglobin 8.6 g/dL (12.0-16.0); Platelet Count 136 thou/uL (130-400)
--- NOTE | 2020-03-09 05:07 | PDOC.FM ---
- Subjective Subjective: Pt resting comfortably in bed. Reports that she is feeling well. Reports BM yesterday. Denies CP. Reports continued SOB with exertion. - Objective MAR Reviewed: Yes Vital Signs & Weight: Vital Signs (12 hours) Temp Pulse Resp Pulse Ox 03/09/20 04:00 97.9 F 03/09/20 02:50 99 03/09/20 00:31 69 18 99 03/09/20 00:00 98.7 F 03/08/20 20:00 97.9 F 97 03/08/20 18:49 61 16 99 Weight Weight 99 kg Most Recent Monitor Data Heart Rate from ECG 51 NIBP 105/58 NIBP BP-Mean 73 Respiration from ECG 21 SpO2 99 I&O: 03/07/20 03/08/20 03/09/20 06:59 06:59 06:59 Intake Total 960 814 718 Output Total 0 528 2750 Balance 960 286 -2031 Result Diagrams: 03/09/20 04:41 03/09/20 04:41 EKG Reviewed by me: Yes (afib, rate controlled) Phys Exam - Physical Examination Constitutional: NAD HEENT: moist MMs Neck: supple, full ROM Respiratory: no rales, clear to auscultation bilateral Cardiovascular: no significant murmur irregularly, irregular Gastrointestinal: soft, non-tender, positive bowel sounds 1+ pitting edema Neurological: moves all 4 limbs Psychiatric: A&O x 3 Skin: no rash Dx/Plan - Plan Plan: 1. Acute Hypoxic Respiratory Failure 2/2 Likely Right Heart Failure : -Currently on 3LNC, required BIPAP overnight -BNP 500's -IV lasix BID -In setting of hypotension, 2D echo done per Ye and no s/sx of pericardial effusion, does report RA/RV/IVC/LA dilation with increased pulmonary artery pressure -ABG with pH 7.33, pCO2 46.4, pO2 162, Bicarb 24, respiratory acidosis with secondary metabolic acidosis -Repeat CXR (03/09): official read pending, pulmonary edema appears to be improving -cardiology (Dr. Inman) and pulm (Dr. Hancock) consulted, appreciate recs -output: 3150 -PT consulted to work with patient 2. SIRS without a source: -Hypotensive requiring dopamine at 2.5mcg/min, dopamine stopped at 0615 on 03/08, will monitor pressures -fever up to 100.4, tachypnea and hypoxia on NC -Pre-op COVID on 02/28 negative, repeat negative -CXR without infiltrate, repeat today (03/09) shows improvement in edema but no official read -Blood cx, urine cx: NGTD, will likely DC antibiotics after 48 hrs of NG -Procal: 0.27 -Currently on Cefepime, will continue for now pending cx results, see above 3. TIMMY, resolved -unsure of cause, likely cardiorenal -Cr: 1.55 > 1.08 > 0.87 -BUN: 32 > 27 > 37 -will continue to monitor 4. Afib s/p Ablation, in Afib but rate controlled -Dr. Belcher discontinued Flecainide 03/07 -Eliquis BID per his recs 5. NSTEMI, type 2 -Likely 2/2 recent ablation -No active CP -EKG showed afib with T wave inversions in the anterolateral leads 6. HTN: -Hold antihypertensives while hypotensive 7. RLS: -Resume home gabapentin 8. GERD: -Resume home protonix Dispo: will transfer to tele for further medical management, encouraged pt to work with PT Addendum - Attending - Attending Attestation Date/Time: 03/09/20 1332 I personally evaluated the patient and discussed the management with Dr. Pardo. I agree with the History, Examination, Assessment and Plan documented above with any addition or exceptions noted below. Renal function back to baseline. Pt is improved but still volume overloaded. Continue IV lasix. Stable to transfer to telemetry.
[2020-03-09 05:12] LABS: Anion Gap 12 mmol/L (10-20); BUN (Urea Nitrogen) 37 mg/dL (9.8-20.1); Calc. Creatinine Clearance 86 mL/min (70-130); Calcium 8.5 mg/dL (7.8-10.44); Carbon Dioxide 30 mmol/L (23-31); Chloride 104 mmol/L (98-107); Estimated GFR-MDRD 63; Glucose 123 mg/dL (83-110); Potassium 3.8 mmol/L (3.5-5.1); Sodium 142 mmol/L (136-145)
[2020-03-09] MEDS: Sucralfate 1 GM TAB PO SCH ×3 (06:43→21:25)
[2020-03-09] MEDS: Furosemide 40 MG/4 ML VIAL SLOW IVP SCH ×2 (06:43→13:14)
[2020-03-09] MEDS: Polyethylene Glycol OPTH DROP 15 ML BOT EA EYE SCH ×2 (07:50→21:27)
[2020-03-09] MEDS: Calcium Carbonate 600 MG + Vit D TAB PO SCH ×2 (07:51→21:25)
[2020-03-09] MEDS: Apixaban 5 MG TAB PO SCH ×2 (07:51→21:27)
[2020-03-09] MEDS: Multivit, Therapeutic 1 TAB PO SCH (08:01)
[2020-03-09] MEDS: Vit A,C & E/Lutein/Minerals Tablet PO SCH ×2 (08:01→21:27)
[2020-03-09] MEDS: Cefepime 1 GM in Sodium Chloride 0.9% 100 ML IVPB SCH (08:02)
[2020-03-09] MEDS: Magnesium Oxide 400 MG TAB PO SCH (08:02)
--- NOTE | 2020-03-09 08:43 | RAD ---
Chest one view HISTORY: CHF. Follow-up. COMPARISON: 03/07/2020. FINDINGS: Cardiac silhouette is magnified and enlarged. Pulmonary vasculature upper limits of normal. Patchy areas of infiltrate throughout each lung, more pronounced at the bases, similar in appearance to the prior study. No evidence of pneumothorax. IMPRESSION : Cardiomegaly, bibasilar infiltrates, and other findings are stable. Possibly related to CHF, although superimposed basilar pneumonitis must be considered.
--- NOTE | 2020-03-09 10:26 | PRG ---
DATE OF SERVICE: 03/09/2020 OBJECTIVE: VITAL SIGNS: This morning, sats are 96% on 2 L, blood pressure 114/47, pulse 47, respiratory rate 18. GENERAL: She is in no distress. I's and O's have been good. CHEST: No wheezing. No crackles. CARDIAC: Normal S1 and S2. No gallops. ABDOMEN: No masses. DIAGNOSTIC STUDIES: X-ray shows cardiomegaly, small pleural effusion. ASSESSMENT: Congestive heart failure, atrial fibrillation. PLAN: Discontinue antibiotics. few days. We will follow. Job ID: [id number]
--- NOTE | 2020-03-09 14:22 | PRG ---
DATE OF SERVICE: 03/09/2020 SUBJECTIVE: Ms. Dorsey is breathing better. She said she is getting back to near her baseline now. No chest pain or pressure. She said she is still not breathing normally, but she said she was also having some difficulty breathing even before the ablation. OBJECTIVE: VITAL SIGNS: Her blood pressure 140/60, pulse is in the 60 to 70 range and it is irregular, atrial fibrillation. ABDOMEN: Soft, nontender. EXTREMITIES: Only mild edema. LABORATORY DATA: Potassium 3.8. ASSESSMENT: 1. Congestive heart failure, diastolic. Continues to improve. 2. Atrial fibrillation, status post ablation. She is back in fibrillation currently. PLAN: 1. She is on apixaban. 2. IV Lasix. 3. We will give her some potassium today. 4. Chest x-ray today reveals cardiomegaly. Pulmonary vasculature upper limit of normal. Plan, continue intravenous diuretics for now. 5. Continue apixaban. 6. Potassium. Job ID: [id number]
[2020-03-09] MEDS ORDERED: Potassium Chloride 20 MEQ TAB PO SCH (17:00)
[2020-03-09] MEDS: Pramipexole Di-HCl 1 MG TAB PO SCH (21:25)
[2020-03-09] MEDS: Cefdinir 300 MG CAP PO SCH (21:25)
[2020-03-09] MEDS: Gabapentin 300 MG CAP PO SCH (21:25)
[2020-03-09] MEDS: Atorvastatin Calcium 10 MG TAB PO SCH (21:25)
--- NOTE | 2020-03-10 05:50 | PDOC.FM ---
- Subjective Subjective: Patient resting comfortably in bed. Reports continued SOB, especially with exertion. The patient is very motivated to work with PT today in hopes of going home in the near future once her fluid status improves. - Objective MAR Reviewed: Yes Vital Signs & Weight: Vital Signs (12 hours) Temp Pulse Resp BP Pulse Ox 03/10/20 03:57 97.6 F 62 18 153/71 H 95 03/10/20 00:00 98.1 F 67 20 139/56 L 96 03/09/20 20:24 98.6 F 73 20 161/99 H 98 Weight Weight 96.2 kg Most Recent Monitor Data Heart Rate from ECG 66 NIBP 114/44 NIBP BP-Mean 67 Respiration from ECG 25 SpO2 100 I&O: 03/08/20 03/09/20 03/10/20 06:59 06:59 06:59 Intake Total 330 380 1062 Output Total 528 3150 2100 Balance 859 -4579 -1618 Result Diagrams: 03/10/20 07:48 03/10/20 07:48 EKG Reviewed by me: Yes (Afib 60s - 80s) Phys Exam - Physical Examination Constitutional: NAD HEENT: moist MMs Neck: supple, full ROM Respiratory: no wheezing, no rales, clear to auscultation bilateral Cardiovascular: no significant murmur irregularly, irregular Gastrointestinal: soft, non-tender trace edema Neurological: non-focal Psychiatric: normal affect, A&O x 3 Skin: no rash Dx/Plan - Plan Plan: 1. Acute Hypoxic Respiratory Failure 2/2 Likely Right Heart Failure : -Currently on 3LNC, required BIPAP overnight -BNP 500's -IV lasix BID -In setting of hypotension, 2D echo done per Ye and no s/sx of pericardial effusion, does report RA/RV/IVC/LA dilation with increased pulmonary artery pressure -ABG with pH 7.33, pCO2 46.4, pO2 162, Bicarb 24, respiratory acidosis with secondary metabolic acidosis -Repeat CXR (03/09): official read pending, pulmonary edema appears to be improving -cardiology (Dr. Inman) and pulm (Dr. Hancock) consulted, appreciate recs -PT consulted to work with patient 2. SIRS without a source: -Hypotensive requiring dopamine at 2.5mcg/min, dopamine stopped at 0615 on 05/08, will monitor pressures -fever up to 100.4, tachypnea and hypoxia on NC -Pre-op COVID on 02/28 negative, repeat negative -CXR without infiltrate, repeat today (03/09) shows improvement in edema but no official read -Blood cx, urine cx: NG @ 48 hrs -Procal: 0.27 -Cefepime dc'd on 03/09 3. TIMMY, resolved -unsure of cause, likely cardiorenal -Cr: 1.55 > 1.08 > 0.87 > 0.80 -BUN: 32 > 27 > 37 > 25 -will continue to monitor 4. Afib s/p Ablation, in Afib but rate controlled -Dr. Belcher discontinued Flecainide 03/07 -Eliquis BID per his recs 5. NSTEMI, type 2 -Likely 2/2 recent ablation -No active CP -EKG showed afib with T wave inversions in the anterolateral leads 6. HTN: -will restart lisinopril today as BPs are now elevated 7. RLS: -Resume home gabapentin 8. GERD: -Resume home protonix Dispo: will transfer to tele for further medical management, encouraged pt to work with PT Addendum - Attending - Attending Attestation Date/Time: 03/10/201913 I personally evaluated the patient and discussed the management with Dr. Ricky viveros. I agree with the History, Examination, Assessment and Plan documented above with any addition or exceptions noted below. Patient had a shower this morning and is feeling better. She is still having some shortness of breath. Will be working with therapy. Continue iv lasix.
[2020-03-10] MEDS: Furosemide 40 MG/4 ML VIAL SLOW IVP SCH ×2 (06:27→13:54)
[2020-03-10] MEDS: Sucralfate 1 GM TAB PO SCH ×3 (06:27→22:03)
[2020-03-10 08:00] LABS: #Eosinphils 0.3 thou/uL (0.0-0.7); #Lymphocytes 0.6 thou/uL (1.20-3.40); #Monocytes 0.5 thou/uL (0.11-0.59); #Neutrophils 4.3 thou/uL (1.40-6.50); %Basophils 0.7 % (0.0-1.0); %Eosinophils 5.5 % (0.0-10.0); %Lymphocytes 10.7 % (21.0-51.0); %Monocytes 8.5 % (0.0-10.0); %Neutrophils 74.6 % (42.0-75.0); Hemoglobin 9.5 g/dL (12.0-16.0); Mean Corpuscular HGB CONC 31.3 g/dL (32.0-36.0); Mean Corpuscular Hemoglobin 30.2 pg (27.0-31.0); Mean Corpuscular Volume 96.5 fL (78.0-98.0); Mean Platelet Volume 8.7 fL (7.4-10.4); Platelet Count 156 thou/uL (130-400); RBC Distribution Width 17.1 % (11.5-14.5); Red Blood Cell (RBC) Count 3.14 mill/uL (4.20-5.40); White Blood Cell (WBC) Count 5.8 thou/uL (4.8-10.8)
[2020-03-10 08:20] LABS: BUN (Urea Nitrogen) 25 mg/dL (9.8-20.1); Calc. Creatinine Clearance 90 mL/min (70-130); Calcium 9.4 mg/dL (7.8-10.44); Estimated GFR-MDRD 70; Glucose 149 mg/dL (83-110)
[2020-03-10 08:29] LABS: Anion Gap 16 mmol/L (10-20); Carbon Dioxide 34 mmol/L (23-31); Chloride 98 mmol/L (98-107); Sodium 144 mmol/L (136-145)
[2020-03-10] MEDS: Magnesium Oxide 400 MG TAB PO SCH (08:36)
[2020-03-10] MEDS: Vit A,C & E/Lutein/Minerals Tablet PO SCH ×2 (08:36→22:03)
[2020-03-10] MEDS: Apixaban 5 MG TAB PO SCH ×2 (08:36→21:57)
[2020-03-10] MEDS: Calcium Carbonate 600 MG + Vit D TAB PO SCH ×2 (08:36→21:57)
[2020-03-10] MEDS: Polyethylene Glycol OPTH DROP 15 ML BOT EA EYE SCH ×3 (08:36→22:13)
[2020-03-10] MEDS: Cefdinir 300 MG CAP PO SCH ×2 (08:36→21:57)
[2020-03-10] MEDS: Multivit, Therapeutic 1 TAB PO SCH (08:36)
--- NOTE | 2020-03-10 11:14 | PRG ---
DATE OF SERVICE: 03/10/2020 SUBJECTIVE: This morning, she says she is better. minimal exertion. OBJECTIVE: VITAL SIGNS: Temperature 97, pulse sats 97 on 2, and blood pressure 154/73. CHEST: No wheezing. No crackles. CARDIAC: Normal S1 and S2. No gallops. ABDOMEN: No masses. LABORATORY DATA: Unremarkable. EF is normal. ASSESSMENT: Pulmonary hypertension, atrial fibrillation, respiratory failure. I added low-dose Dulera to her present regime. Continue PT. Continue cardiac care. Job ID: [id number]
[2020-03-10] MEDS ORDERED: Lisinopril 20 MG TAB PO SCH (12:30)
--- NOTE | 2020-03-10 13:40 | PDOC.EP ---
- Subjective Date: 03/10/20 Time: 13:35 Interval History: feeling much improved. Less SOB, - Review of Systems Constitutional: denies: chills, fever, malaise, sweats, weakness, other Respiratory: reports: shortness of breath. denies: cough, dry, hemoptysis, pleuritic pain, SOB with excertion, sputum, wheezing, other Cardiology: denies: chest pain, edema, heart racing, light headedness, paroxysmal noc. dyspnea, orthopnea, palpitations, passing out, pleuritic pain, pressure, swelling, other Gastrointestinal: denies: abdominal pain, constipation, diarrhea, hematochezia, melena, nausea, vomitting, other Musculoskeletal: denies: unstable gait, falls, neck pain, shoulder pain, arm pain, hand pain, leg pain, foot pain, other - Objective Allergies/Adverse Reactions: Allergies Allergy/AdvReac Type Severity Reaction Status Date / Time amoxicillin [From Augmentin] Allergy Nausea Verified 03/04/20 10:37 clavulanic acid Allergy Nausea Verified 03/04/20 10:37 [From Augmentin] nitrofurantoin Allergy Nausea Verified 03/04/20 10:37 [From Macrobid] Current Medications Acetaminophen (Acetaminophen 325 Mg Tab) 650 mg PO Q4H PRN PRN Reason: Headache/Fever or Pain Last Admin: 03/08/20 22:04 Dose: 650 mg Documented by: Albuterol/Ipratropium (Ipratropium/Albuterol Sulfate 3 Ml Neb) 3 ml NEB Q6H PRN PRN Reason: Dyspnea/Wheezing/SOB Apixaban (Apixaban 5 Mg Tab) 5 mg PO BID [facility] Last Admin: 03/10/20 08:36 Dose: 5 mg Documented by: Atorvastatin Calcium (Atorvastatin Calcium 10 Mg Tab) 10 mg PO HS [facility] Last Admin: 03/09/20 21:25 Dose: 10 mg Documented by: Benzonatate (Benzonatate 100 Mg Cap) 100 mg PO TIDPRN PRN PRN Reason: Cough Calcium/Vitamin D (Calcium Carbonate 600 Mg + Vit D Tab) 1 tab PO BID [facility] Last Admin: 03/10/20 08:36 Dose: 1 tab Documented by: Cefdinir (Cefdinir 300 Mg Cap) 300 mg PO BID [facility] Stop: 03/12/20 21:01 Last Admin: 03/10/20 08:36 Dose: 300 mg Documented by: Dofetilide (Dofetilide 0.25 Mg Cap) 0.5 mg PO BID [facility] Furosemide (Furosemide 40 Mg/4 Ml Vial) 40 mg SLOW IVP 0600,1400 [facility] Last Admin: 03/10/20 06:27 Dose: 40 mg Documented by: Gabapentin (Gabapentin 300 Mg Cap) 300 mg PO HS [facility] Last Admin: 03/09/20 21:25 Dose: 300 mg Documented by: Lisinopril (Lisinopril 20 Mg Tab) 20 mg PO NOW [facility] Stop: 03/10/20 15:00 Lisinopril (Lisinopril 20 Mg Tab) 20 mg PO QAM [facility] Magnesium Oxide (Magnesium Oxide 400 Mg Tab) 400 mg PO QAM [facility] Last Admin: 03/10/20 08:36 Dose: 400 mg Documented by: Mometasone Furoate/Formoterol Fumar (Mometasone 200 Mcg/Formoterol 5 Mcg 120 Puff Inhaler) 2 puff INH BID-RT [facility] Multivitamins (Multivit, Therapeutic 1 Tab) 1 tab PO DAILY [facility] Last Admin: 03/10/20 08:36 Dose: 1 tab Documented by: Multivitamins/Minerals (Vit A,C & E/Lutein/Minerals Tablet) 1 tab PO BID [facility] Last Admin: 03/10/20 08:36 Dose: 1 tab Documented by: Pantoprazole Sodium (Pantoprazole 40 Mg Tab) 40 mg PO DAILY [facility] Stop: 03/19/20 09:01 Last Admin: 03/10/20 08:36 Dose: 40 mg Documented by: Polyethylene Glycol (Polyethylene Glycol 3350 17 Gm Packet) 17 gm PO DAILYPRN PRN PRN Reason: Constipation Pramipexole Dihydrochloride (Pramipexole Di-Hcl 1 Mg Tab) 1.5 mg PO HS [facility] Last Admin: 03/09/20 21:25 Dose: 1.5 mg Documented by: Propylene Glycol (Polyethylene Glycol Opth Drop 15 Ml Bot) 1 drop EA EYE BID [facility] Last Admin: 03/10/20 08:36 Dose: Not Given Documented by: Sodium Chloride (Flush - Normal Saline 10 Ml Syringe) 10 ml IVF Q12HR [facility] Last Admin: 03/09/20 21:27 Dose: 10 ml Documented by: Sodium Chloride (Flush - Normal Saline 10 Ml Syringe) 10 ml IVF PRN PRN PRN Reason: Saline Flush Sucralfate (Sucralfate 1 Gm Tab) 1 gm PO Q8HR [facility] Stop: 03/19/20 22:01 Last Admin: 03/10/20 06:27 Dose: 1 gm Documented by: Vital Signs & Weight: Vital Signs Temp Pulse Resp BP Pulse Ox 03/10/20 12:00 97.5 F L 67 18 171/83 H 96 03/10/20 07:40 97.4 F L 68 20 154/73 H 97 03/10/20 03:57 97.6 F 62 18 153/71 H 95 Weight 210 lb 8 oz I/O: I/O 03/09/20 03/10/20 03/11/20 06:59 06:59 06:59 Intake Total 918 1020 240 Output Total 3150 2100 1400 Balance -2232 -1080 -1160 - Quality Measures Condition: Atrial Fibrillation/Flutter (hx or current) CV meds: Eliquis: Yes - Physical Exam General: alert & oriented x3, appears well, no apparent distress, speech clear, affect appropriate HEENT: mucus membranes moist, normocephaly Neck: supple neck, midline trachea, no JVD/HJR, no masses, no bruit, no lymphadenopathy, no thromegaly Cardiology: irregularly irregular Lungs: clear to auscultation, normal breath sounds, no rhonchi Neurology: cranial nerve 2-12 intact, grossly intact, coordination normal Abdomen: unremarkable, active bowel sounds, HJR negative Extremities: dry, strong pulses, warm Skin: groin sites stable - Labs Result Diagrams: 03/10/20 07:48 03/10/20 07:48 - EKG Interpretation EKG Method: Telemetry EKG shows: Atrial fibrillation - Assessment/Plan Assessment/Plan: 1. Persistent atrial fibrillation -s/p redo PVAI 03/05/20 with early recurrence 2. Congestive heart failure post ablation -LVEF 60-65% in past andf curetn ECHO on dopamin. 3. Low grade fever on POD#1. - resolved. BCX sent 11/ am. 4. Shortness of breath -long standing issue, now worse - O2 via NC CHF with SOB and early recurrence of AFib post ablation. Diastolic HF with flecainide. Renal function has corrected. Continue OAC. Remains in AF with some fluid overload. Initiating tikosyn/dofetilide loading protocol. 12 lead ECG with any rhythm changes and 2-3 hrs after every tikosyn dose x6 doses. Daily BMP and Mg. Possible CV in a couple days if does not chemically con vert. QTc Monitorin/23 AM: 416msec
--- NOTE | 2020-03-10 15:05 | PRG ---
DATE OF SERVICE: 03/10/2020 SUBJECTIVE: Ms. Dorsey is feeling better. Her breathings improved. OBJECTIVE: VITAL SIGNS: Blood pressure 170/80 and pulse 66, it is irregular. LUNGS: Clear. CARDIAC: Irregularly irregular. ABDOMEN: Soft and nontender. EXTREMITIES: There is no edema now. ASSESSMENT: Congestive heart failure, diastolic, acute on chronic, improved. PLAN: 1. To check a BNP tomorrow. 2. Change to oral diuretics tomorrow. Job ID: [id number]
[2020-03-10] MEDS ORDERED: Dofetilide 0.25 MG CAP PO SCH (16:00)
[2020-03-10] MEDS ORDERED: Dofetilide 0.125 MG CAP PO SCH (17:00)
[2020-03-10] MEDS: Mometasone 200 MCG/Formoterol 5 MCG 120 PUFF INHALER INH SCH (18:25)
[2020-03-10] MEDS: Atorvastatin Calcium 10 MG TAB PO SCH (21:57)
[2020-03-10] MEDS: Gabapentin 300 MG CAP PO SCH (22:01)
[2020-03-10] MEDS: Pramipexole Di-HCl 1 MG TAB PO SCH (22:02)
[2020-03-11] MEDS ORDERED: Dofetilide 0.125 MG CAP PO SCH (04:00)
[2020-03-11] MEDS: Calcium Carbonate 500 MG ChewTAB PO PRN ×2 (04:33→11:32)
[2020-03-11 05:28] LABS: BUN (Urea Nitrogen) 21 mg/dL (9.8-20.1); Calc. Creatinine Clearance 90 mL/min (70-130); Calcium 8.8 mg/dL (7.8-10.44); Estimated GFR-MDRD 74; Glucose 127 mg/dL (83-110); Magnesium 1.1 mg/dL (1.6-2.6)
[2020-03-11] MEDS: Sucralfate 1 GM TAB PO SCH ×3 (05:29→21:13)
[2020-03-11 05:37] LABS: Anion Gap 17 mmol/L (10-20); Carbon Dioxide 33 mmol/L (23-31); Chloride 95 mmol/L (98-107); Potassium 3.1 mmol/L (3.5-5.1); Sodium 142 mmol/L (136-145)
--- NOTE | 2020-03-11 06:11 | PDOC.FM ---
- Subjective Subjective: No acute events overnight. Patient reports improvement in her breathing and noticeable improvement in her LE edema. She is working with PT and walked the halls yesterday. She is tolerating PO intake and had multiple BMs yesterday. - Objective MAR Reviewed: Yes Vital Signs & Weight: Vital Signs (12 hours) Temp Pulse Resp BP Pulse Ox 03/11/20 04:05 98.1 F 68 18 135/68 97 03/10/20 23:52 98.5 F 58 L 18 129/69 97 03/10/20 21:55 97 03/10/20 19:30 98.6 F 74 18 147/73 H 99 Weight Weight 90.809 kg Most Recent Monitor Data Heart Rate from ECG 66 NIBP 114/44 NIBP BP-Mean 67 Respiration from ECG 25 SpO2 100 I&O: 03/09/20 03/10/20 03/11/20 06:59 06:59 06:59 Intake Total 918 1020 690 Output Total 3150 2100 1400 Balance -2232 -1080 -710 Result Diagrams: 03/10/20 07:48 03/11/20 11:56 EKG Reviewed by me: Yes (Afib 60-70) Phys Exam - Physical Examination Constitutional: NAD HEENT: moist MMs Neck: supple, full ROM Respiratory: no wheezing, no rales, clear to auscultation bilateral Cardiovascular: no significant murmur irregularly, irregular Gastrointestinal: soft, positive bowel sounds trace edema, marked improvement Neurological: non-focal Psychiatric: normal affect, A&O x 3 Skin: no rash Dx/Plan - Plan Plan: 1. Acute Hypoxic Respiratory Failure 2/2 Likely Right Heart Failure : -Currently on 3LNC, required BIPAP overnight -BNP 500's -s/p IV lasix BID --> now on PO lasix BID, consider another dose of IV as patient still seems fluid overloaded and on 2L NC -In setting of hypotension, 2D echo done per Ye and no s/sx of pericardial effusion, does report RA/RV/IVC/LA dilation with increased pulmonary artery pressure -ABG with pH 7.33, pCO2 46.4, pO2 162, Bicarb 24, respiratory acidosis with secondary metabolic acidosis -Repeat CXR (03/09): cardiomegaly, bibasilar infiltrates; could be CHF but pneumonitits not ruled out -cardiology (Dr. Inman - transition to PO lasix) and pulm (Dr. Hancock - on cefdinir until tomorrow) consulted, appreciate recs -Dr. Belcher - added tikosyn for atrial fibrillation; possible CV tomorrow if patient does not convert to SR; closely monitor electrolytes and replace as needed -PT consulted to work with patient -nursing to wean O2 as tolerated 2. SIRS without a source: -Hypotensive requiring dopamine at 2.5mcg/min, dopamine stopped at 0615 on 03/08, will monitor pressures -fever up to 100.4, tachypnea and hypoxia on NC -Pre-op COVID on 02/28 negative, repeat negative -CXR without infiltrate, repeat today (03/09) shows CHF vs. pneumonitis -Blood cx, urine cx: NG @ 48 hrs -Procal: 0.27 -Cefepime dc'd on 03/09 -Dr. Hancock - Cefdinir x3 days 3. TIMMY, resolved -unsure of cause, likely cardiorenal -Cr: 1.55 > 1.08 > 0.87 > 0.80 > 0.76 -BUN: 32 > 27 > 37 > 25 > 21 -will continue to monitor 4. Afib s/p Ablation, in Afib but rate controlled -Dr. Belcher discontinued Flecainide 03/07, started on tikosyn on 03/10 -possible CV tomorrow, monitor electrolytes closely -Eliquis BID per his recs 5. NSTEMI, type 2 -Likely 2/2 recent ablation -No active CP -EKG showed afib with T wave inversions in the anterolateral leads 6. HTN: -started on home lisinopril as BPs are now elevated 7. RLS: -Resume home gabapentin 8. GERD: -Resume home protonix Dispo: continue diuresis, f/u recs from specialists, continue working with PT Addendum - Attending - Attending Attestation Date/Time: 03/11/201914 I personally evaluated the patient and discussed the management with Dr. Pardo. I agree with the History, Examination, Assessment and Plan documented above with any addition or exceptions noted below. I was able to watch patient ambulate in the halls without oxygen. Will continue wean. Meds are being adjusted by Dr. Belcher and if pt is still in a.fib tomorrow, they will try a cardioversion. Continue lasix.
[2020-03-11] MEDS ORDERED: Potassium Chloride 20 MEQ in Premix Bag 1 BAG IVPB SCH (06:15)
[2020-03-11] MEDS ORDERED: Magnesium 2 GM/50 ML 2 GM in Premix Bag 1 BAG IVPB SCH ×2 (06:15→15:45)
[2020-03-11] MEDS ORDERED: Magnesium Sulfate 2 GM in Sodium Chloride 0.9% 100 ML IVPB SCH (06:15)
[2020-03-11] MEDS: Mometasone 200 MCG/Formoterol 5 MCG 120 PUFF INHALER INH SCH ×2 (06:39→18:23)
--- NOTE | 2020-03-11 07:02 | EKG ---
Test Reason : Blood Pressure : / mmHG Vent. Rate : 071 BPM Atrial Rate : 071 BPM P-R Int : 318 ms QRS Dur : 092 ms QT Int : 448 ms P-R-T Axes : 028 007 141 degrees QTc Int : 486 ms Sinus rhythm with 1st degree A-V block with Premature supraventricular complexes T wave abnormality, consider anterolateral ischemia Prolonged QT Abnormal ECG Confirmed by SIMON MERCADO MD ([id number]) on 03/11/2020 7:02:24 AM Referred By: [facility] Confirmed By:SIMON MERCADO MD
--- NOTE | 2020-03-11 07:16 | EKG ---
Test Reason : Blood Pressure : / mmHG Vent. Rate : 057 BPM Atrial Rate : 277 BPM P-R Int : 000 ms QRS Dur : 090 ms QT Int : 492 ms P-R-T Axes : 000 007 012 degrees QTc Int : 478 ms Atrial fibrillation with slow ventricular response Prolonged QT Abnormal ECG Confirmed by SIMON MERCADO MD ([id number]) on 03/11/2020 7:16:10 AM Referred By: Confirmed By:SIMON MERCADO MD
--- NOTE | 2020-03-11 07:18 | EKG ---
Test Reason : STAT Blood Pressure : / mmHG Vent. Rate : 053 BPM Atrial Rate : 067 BPM P-R Int : 000 ms QRS Dur : 088 ms QT Int : 460 ms P-R-T Axes : 000 060 054 degrees QTc Int : 431 ms Atrial fibrillation with slow ventricular response Abnormal ECG Confirmed by SIMON MERCADO MD ([id number]) on 03/11/2020 7:17:27 AM Referred By: Confirmed By:SIMON MERCADO MD
--- NOTE | 2020-03-11 07:19 | EKG ---
Test Reason : Blood Pressure : / mmHG Vent. Rate : 053 BPM Atrial Rate : 066 BPM P-R Int : 000 ms QRS Dur : 088 ms QT Int : 476 ms P-R-T Axes : 000 070 070 degrees QTc Int : 446 ms Atrial fibrillation with slow ventricular response Abnormal ECG Confirmed by SIMON MERCADO MD ([id number]) on 03/11/2020 7:18:49 AM Referred By: [facility] Confirmed By:SIMON MERCADO MD
[2020-03-11] MEDS: Dofetilide 0.125 MG CAP PO SCH ×2 (08:46→21:13)
[2020-03-11] MEDS: Potassium Chloride 20 MEQ TAB PO SCH ×2 (08:46→17:36)
[2020-03-11] MEDS: Multivit, Therapeutic 1 TAB PO SCH (08:47)
[2020-03-11] MEDS: Magnesium Oxide 400 MG TAB PO SCH (08:47)
[2020-03-11] MEDS: Lisinopril 20 MG TAB PO SCH (08:47)
[2020-03-11] MEDS: Cefdinir 300 MG CAP PO SCH ×2 (08:47→21:13)
[2020-03-11] MEDS: Furosemide 20 MG TAB PO SCH ×2 (08:47→17:35)
[2020-03-11] MEDS: Apixaban 5 MG TAB PO SCH ×2 (08:48→21:11)
[2020-03-11] MEDS: Calcium Carbonate 600 MG + Vit D TAB PO SCH ×2 (08:48→21:11)
[2020-03-11] MEDS: Vit A,C & E/Lutein/Minerals Tablet PO SCH ×2 (08:48→21:12)
[2020-03-11] MEDS: Polyethylene Glycol OPTH DROP 15 ML BOT EA EYE SCH ×2 (08:49→21:14)
--- NOTE | 2020-03-11 08:58 | PDOC.EP ---
- Subjective Date: 03/11/20 Time: 08:50 Interval History: No events overnight. Feels well. Breathing continues to improve - Review of Systems Constitutional: denies: chills, fever, malaise, sweats, weakness, other Respiratory: denies: cough, dry, hemoptysis, pleuritic pain, shortness of breath, SOB with excertion, sputum, wheezing, other Cardiology: denies: chest pain, edema, heart racing, light headedness, paroxysmal noc. dyspnea, orthopnea, palpitations, passing out, pleuritic pain, pressure, swelling, other Gastrointestinal: denies: abdominal pain, constipation, diarrhea, hematochezia, melena, nausea, vomitting, other Musculoskeletal: denies: unstable gait, falls, neck pain, shoulder pain, arm pain, hand pain, leg pain, foot pain, other - Objective Allergies/Adverse Reactions: Allergies Allergy/AdvReac Type Severity Reaction Status Date / Time amoxicillin [From Augmentin] Allergy Nausea Verified 03/04/20 10:37 clavulanic acid Allergy Nausea Verified 03/04/20 10:37 [From Augmentin] nitrofurantoin Allergy Nausea Verified 03/04/20 10:37 [From Macrobid] Current Medications Acetaminophen (Acetaminophen 325 Mg Tab) 650 mg PO Q4H PRN PRN Reason: Headache/Fever or Pain Last Admin: 03/08/20 22:04 Dose: 650 mg Documented by: Albuterol/Ipratropium (Ipratropium/Albuterol Sulfate 3 Ml Neb) 3 ml NEB Q6H PRN PRN Reason: Dyspnea/Wheezing/SOB Apixaban (Apixaban 5 Mg Tab) 5 mg PO BID [facility] Last Admin: 03/11/20 08:48 Dose: 5 mg Documented by: Atorvastatin Calcium (Atorvastatin Calcium 10 Mg Tab) 10 mg PO HS [facility] Last Admin: 03/10/20 21:57 Dose: 10 mg Documented by: Benzonatate (Benzonatate 100 Mg Cap) 100 mg PO TIDPRN PRN PRN Reason: Cough Calcium Carbonate (Calcium Carbonate 500 Mg Chewtab) 1,000 mg PO Q4H PRN PRN Reason: Heartburn or Indigestion Last Admin: 03/11/20 04:33 Dose: 1,000 mg Documented by: Calcium/Vitamin D (Calcium Carbonate 600 Mg + Vit D Tab) 1 tab PO BID [facility] Last Admin: 03/11/20 08:48 Dose: 1 tab Documented by: Cefdinir (Cefdinir 300 Mg Cap) 300 mg PO BID [facility] Stop: 03/12/20 21:01 Last Admin: 03/11/20 08:47 Dose: 300 mg Documented by: Dofetilide (Dofetilide 0.125 Mg Cap) 0.25 mg PO Q12HR [facility] Last Admin: 03/11/20 08:46 Dose: 0.25 mg Documented by: Furosemide (Furosemide 20 Mg Tab) 40 mg PO 0900,1400 [facility] Last Admin: 03/11/20 08:47 Dose: 40 mg Documented by: Gabapentin (Gabapentin 300 Mg Cap) 300 mg PO HS [facility] Last Admin: 03/10/20 22:01 Dose: 300 mg Documented by: Lisinopril (Lisinopril 20 Mg Tab) 20 mg PO QAM [facility] Last Admin: 03/11/20 08:47 Dose: 20 mg Documented by: Magnesium Oxide (Magnesium Oxide 400 Mg Tab) 400 mg PO QAM [facility] Last Admin: 03/11/20 08:47 Dose: 400 mg Documented by: Mometasone Furoate/Formoterol Fumar (Mometasone 200 Mcg/Formoterol 5 Mcg 120 Puff Inhaler) 2 puff INH BID-RT [facility] Last Admin: 03/11/20 06:39 Dose: 2 puff Documented by: Multivitamins (Multivit, Therapeutic 1 Tab) 1 tab PO DAILY [facility] Last Admin: 03/11/20 08:47 Dose: 1 tab Documented by: Multivitamins/Minerals (Vit A,C & E/Lutein/Minerals Tablet) 1 tab PO BID [facility] Last Admin: 03/11/20 08:48 Dose: 1 tab Documented by: Pantoprazole Sodium (Pantoprazole 40 Mg Tab) 40 mg PO DAILY [facility] Stop: 03/19/20 09:01 Last Admin: 03/11/20 08:47 Dose: 40 mg Documented by: Polyethylene Glycol (Polyethylene Glycol 3350 17 Gm Packet) 17 gm PO DAILYPRN PRN PRN Reason: Constipation Potassium Chloride (Potassium Chloride 20 Meq Tab) 40 meq PO BID-WM [facility] Last Admin: 03/11/20 08:46 Dose: 40 meq Documented by: Pramipexole Dihydrochloride (Pramipexole Di-Hcl 1 Mg Tab) 1.5 mg PO HS [facility] Last Admin: 03/10/20 22:02 Dose: 1.5 mg Documented by: Propylene Glycol (Polyethylene Glycol Opth Drop 15 Ml Bot) 1 drop EA EYE BID [facility] Last Admin: 03/11/20 08:49 Dose: 1 drp Documented by: Sodium Chloride (Flush - Normal Saline 10 Ml Syringe) 10 ml IVF Q12HR [facility] Last Admin: 03/11/20 08:48 Dose: 10 ml Documented by: Sodium Chloride (Flush - Normal Saline 10 Ml Syringe) 10 ml IVF PRN PRN PRN Reason: Saline Flush Sucralfate (Sucralfate 1 Gm Tab) 1 gm PO Q8HR [facility] Stop: 03/19/20 22:01 Last Admin: 03/11/20 05:29 Dose: 1 gm Documented by: Vital Signs & Weight: Vital Signs Temp Pulse Resp BP Pulse Ox 03/11/20 07:38 99.5 F 62 18 153/71 H 99 03/11/20 06:41 99 03/11/20 06:39 68 20 99 03/11/20 04:05 98.1 F 68 18 135/68 97 03/10/20 23:52 98.5 F 58 L 18 129/69 97 03/10/20 21:55 97 Weight 200 lb 3.2 oz I/O: I/O 03/10/20 03/11/20 03/12/20 06:59 06:59 06:59 Intake Total 1020 1410 Output Total 2100 2750 Balance -1080 -2470 - Quality Measures Condition: Atrial Fibrillation/Flutter (hx or current) CV meds: Eliquis: Yes - Physical Exam General: alert & oriented x3, appears well, no apparent distress, speech clear, affect appropriate HEENT: mucus membranes moist, normocephaly Neck: supple neck, midline trachea, no lymphadenopathy, JVD/HJR Cardiology: regular rate and rhythm, no murmur, regular rate, regular rhythm, PMI nondisplaced Lungs: clear to auscultation, normal breath sounds, normal exam, no wheeze, rales, rhonchi, no wheezes, no rales, no rhonchi Neurology: cranial nerve 2-12 intact, grossly intact, motor function intact, sensory function intact, negative rhomberg, coordination normal, no lateralizing findings Abdomen: unremarkable, active bowel sounds, HJR negative Extremities: dry, strong pulses, warm Skin: groin sites stable - Labs Result Diagrams: 03/10/20 07:48 03/11/20 11:56 - EKG Interpretation EKG Method: Telemetry EKG shows: Atrial fibrillation - Assessment/Plan Assessment/Plan: 1. Persistent atrial fibrillation -s/p redo PVAI 03/05/20 with early recurrence 2. Congestive heart failure post ablation -LVEF 60-65% in past and current ECHO on dopamin. 3. Low grade fever on POD#1. - resolved. BCX sent 03/07 am. 4. Shortness of breath -improving - O2 via NC 5. TIMMY -resovled 6.Hypomagnesemia -goal >2.0 7.Hypokalemia -KCl 40 BID ordered -goal >4.0 Tikosyn loading continues. QTc increased significantly after 1st 500mcg dose. Reduced to 250mcg BID. K & Mg low. replacement given. Recheck Mag/K at noon. Further replacement may be needed. 2nd dose QTc acceptable now~ 460msec. Aggressive electrolyte replacement needed to prevent proarrhythmic effects. NPO for CV tomorrow afternoon if does not chemically convert. Update: K & Mg rechecked post replacement. Remain low: k 3.3 and Mag 1.5 Additional replacement ordered. Will recheck with AM labs. If K <4 or Mag < 2 will need replacement started before cardioversion (currently scheduled for around noon)
[2020-03-11] MEDS ORDERED: Lisinopril 10 MG TAB PO SCH (09:00)
--- NOTE | 2020-03-11 10:55 | PRG ---
DATE OF SERVICE: 03/11/2020 SUBJECTIVE: Yolanda Dorsey is status post ablation, respiratory failure better. OBJECTIVE: VITAL SIGNS: Temperature 99, pulse blood pressure 143/71. GENERAL: Denies any coughing or wheezing. She was started on some Dulera. CHEST: No wheezing. No crackles. CARDIAC: Normal S1 and S2. No gallops. ABDOMEN: No masses. LABORATORY DATA: Unremarkable. BNP is 801. ASSESSMENT AND PLAN: Congestive heart failure, respiratory failure, status post ablation, supraventricular tachycardia. Continue cardiac care. Continue Dulera as needed. Empiric antibiotics. Disposition as per Cardiology. Please call if needed. Job ID: [id number]
[2020-03-11] MEDS: Acetaminophen 325 MG TAB PO PRN (11:32)
[2020-03-11] MEDS ORDERED: Spironolactone 25 MG TAB PO SCH (11:45)
--- NOTE | 2020-03-11 11:53 | PRG ---
DATE OF SERVICE: 03/11/2020 SUBJECTIVE: Ms. Dorsey is feeling better. She complains of some shoulder pain, but it sounds musculoskeletal. She has normal coronary arteries. Therefore, this would not appear to be anginal. OBJECTIVE: VITAL SIGNS: Her blood pressure 150/70, pulse 60, it is only mild irregularity. LUNGS: Clear. I do not hear any wheezing. CARDIAC: Normal S1, normal S2. ABDOMEN: Soft and nontender. ASSESSMENT: 1. Diastolic heart failure, improved. 2. Hypokalemia, potassium 3.1. 3. BNP is actually higher, but clinically she is improved. PLAN: 1. We will add spironolactone 25 mg a day. 2. She is on oral furosemide. 3. Consideration for cardioversion by Dr. Belcher is being given. Job ID: [id number]
[2020-03-11 12:49] LABS: Magnesium 1.6 mg/dL (1.6-2.6); Potassium 3.3 mmol/L (3.5-5.1)
[2020-03-11] MEDS ORDERED: Potassium Chloride 20 MEQ TAB PO SCH (15:15)
[2020-03-11] MEDS: Gabapentin 300 MG CAP PO SCH (21:12)
[2020-03-11] MEDS: Atorvastatin Calcium 10 MG TAB PO SCH (21:13)
[2020-03-11] MEDS: Pramipexole Di-HCl 1 MG TAB PO SCH (21:13)
--- NOTE | 2020-03-12 05:29 | PDOC.FM ---
- Subjective Subjective: Patient was doing well this morning. She denied CP but endorsed continued SOB that is improving. She was currently on 2L but was able to walk the halls yesterday without O2. She reports a dry cough. She is currently NPO (meds with sips of water) for cardioversion later today. - Objective MAR Reviewed: Yes Vital Signs & Weight: Vital Signs (12 hours) Temp Pulse Resp BP Pulse Ox 03/12/20 04:00 99.1 F 69 16 129/60 93 L 03/12/20 00:00 99.2 F 64 16 135/56 L 94 L 03/11/20 20:30 95 03/11/20 20:00 98.3 F 66 16 137/74 96 Weight Weight 90.809 kg Most Recent Monitor Data Heart Rate from ECG 66 NIBP 114/44 NIBP BP-Mean 67 Respiration from ECG 25 SpO2 100 I&O: 03/10/20 03/11/20 03/12/20 06:59 06:59 06:59 Intake Total 1020 1410 545 Output Total 2100 2750 1200 Balance -8246 -1340 -655 Result Diagrams: 03/12/20 05:08 03/12/20 05:08 EKG Reviewed by me: Yes (Afib 60s-70s) Phys Exam - Physical Examination Constitutional: NAD HEENT: moist MMs Neck: supple, full ROM Respiratory: no wheezing, no rales, clear to auscultation bilateral Cardiovascular: no significant murmur irregularly, irregular Gastrointestinal: soft, non-tender, positive bowel sounds trace edema Neurological: moves all 4 limbs Psychiatric: normal affect, A&O x 3 Skin: normal turgor Dx/Plan - Plan Plan: 1. Acute Hypoxic Respiratory Failure 2/2 Likely Right Heart Failure : -Currently on 3LNC, required BIPAP overnight -BNP 500s > 800s > 600s -s/p IV lasix BID --> now on PO lasix BID, consider another dose of IV as patient still seems fluid overloaded -required 1-2 L NC overnight, not on O2 at home -In setting of hypotension, 2D echo done per Ye and no s/sx of pericardial effusion, does report RA/RV/IVC/LA dilation with increased pulmonary artery pressure -ABG with pH 7.33, pCO2 46.4, pO2 162, Bicarb 24, respiratory acidosis with secondary metabolic acidosis -Repeat CXR (03/09): cardiomegaly, bibasilar infiltrates; could be CHF but pneumonitits not ruled out -cardiology and pulm consulted, appreciate recs * Dr. Inman - transition to PO lasix, added spironolactone * Dr. Hancock - on cefdinir until 03/12 -Dr. Belcher * added tikosyn for atrial fibrillation * pt is NPO for CV around noon on 03/12 * replace electrolytes prior to procedure if K < 4 and Mag < 2 -PT consulted to work with patient -nursing to wean O2 as tolerated 2. SIRS without a source: -Hypotensive requiring dopamine at 2.5mcg/min, dopamine stopped at 0615 on 03/08, will monitor pressures -fever up to 100.4, tachypnea and hypoxia on NC -Pre-op COVID on 02/28 negative, repeat negative -CXR without infiltrate, repeat today (03/09) shows CHF vs. pneumonitis -Blood cx, urine cx: NG @ 48 hrs -Procal: 0.27 -Cefepime dc'd on 03/09 -Dr. Hancock - Cefdinir x3 days (03/09 - 03/12) 3. TIMMY, resolved -unsure of cause, likely cardiorenal -Cr: 1.55 > 1.08 > 0.87 > 0.80 > 0.76 -BUN: 32 > 27 > 37 > 25 > 21 -will continue to monitor 4. Afib s/p Ablation, in Afib but rate controlled -Dr. Belcher discontinued Flecainide 03/07, started on tikosyn on 03/10 -plan for CV today, see above -Eliquis BID per his recs 5. NSTEMI, type 2 -Likely 2/2 recent ablation -No active CP -EKG showed afib with T wave inversions in the anterolateral leads 6. HTN: -started on home lisinopril as BPs are now elevated 7. RLS: -Resume home gabapentin 8. GERD: -Resume home protonix Dispo: plan for CV with Ye today, will continue to follow recs of Dr. Belcher, Dr. Inman, and Dr. Hancock Addendum - Attending - Attending Attestation Date/Time: 03/12/20 1523 I personally evaluated the patient and discussed the management with Dr. Pardo I agree with the History, Examination, Assessment and Plan documented above with any addition or exceptions noted below. The patient is scheduled for cardioversion today. Asked nurse to try to wean o2. Continue lasix.
[2020-03-12] MEDS: Sucralfate 1 GM TAB PO SCH ×3 (05:44→20:56)
[2020-03-12 05:54] LABS: Hemoglobin 8.8 g/dL (12.0-16.0); Platelet Count 143 thou/uL (130-400)
[2020-03-12 06:16] LABS: Anion Gap 14 mmol/L (10-20); BUN (Urea Nitrogen) 17 mg/dL (9.8-20.1); Calc. Creatinine Clearance 91 mL/min (70-130); Calcium 8.9 mg/dL (7.8-10.44); Carbon Dioxide 36 mmol/L (23-31); Chloride 95 mmol/L (98-107); Estimated GFR-MDRD 75; Glucose 122 mg/dL (83-110); Magnesium 1.7 mg/dL (1.6-2.6); Potassium 3.8 mmol/L (3.5-5.1); Sodium 141 mmol/L (136-145)
[2020-03-12] MEDS ORDERED: Potassium Chloride 20 MEQ TAB PO SCH (06:30)
[2020-03-12] MEDS ORDERED: Magnesium 2 GM/50 ML 2 GM in Premix Bag 1 BAG IVPB SCH (06:30)
[2020-03-12] MEDS: Mometasone 200 MCG/Formoterol 5 MCG 120 PUFF INHALER INH SCH ×2 (06:38→18:19)
[2020-03-12] MEDS: Apixaban 5 MG TAB PO SCH ×2 (07:50→20:55)
[2020-03-12] MEDS: Polyethylene Glycol OPTH DROP 15 ML BOT EA EYE SCH ×2 (08:02→20:59)
[2020-03-12] MEDS: Cefdinir 300 MG CAP PO SCH ×2 (08:02→20:55)
[2020-03-12] MEDS: Vit A,C & E/Lutein/Minerals Tablet PO SCH ×2 (08:03→20:55)
[2020-03-12] MEDS: Furosemide 20 MG TAB PO SCH ×2 (08:03→14:52)
[2020-03-12] MEDS: Magnesium Oxide 400 MG TAB PO SCH (08:03)
[2020-03-12] MEDS: Dofetilide 0.125 MG CAP PO SCH ×2 (08:03→20:55)
[2020-03-12] MEDS: Lisinopril 20 MG TAB PO SCH (08:03)
[2020-03-12] MEDS: Calcium Carbonate 600 MG + Vit D TAB PO SCH ×2 (08:04→20:55)
[2020-03-12] MEDS: Multivit, Therapeutic 1 TAB PO SCH (08:04)
[2020-03-12] MEDS: Spironolactone 25 MG TAB PO SCH (08:04)
--- NOTE | 2020-03-12 09:17 | EKG ---
Test Reason : Blood Pressure : / mmHG Vent. Rate : 065 BPM Atrial Rate : 234 BPM P-R Int : 000 ms QRS Dur : 092 ms QT Int : 422 ms P-R-T Axes : 000 015 025 degrees QTc Int : 438 ms Atrial fibrillation Nonspecific T wave abnormality Abnormal ECG No previous ECGs available Confirmed by SIMON MERCADO MD ([id number]) on 03/12/2020 9:17:07 AM Referred By: [facility] Confirmed By:SIMON MERCADO MD
[2020-03-12] MEDS: Potassium Chloride 20 MEQ TAB PO SCH ×2 (09:35→16:26)
[2020-03-12] MEDS ORDERED: Lidocaine 1% PF 5 ML VIAL ONE ×2 (09:43→12:22)
[2020-03-12] MEDS ORDERED: PROPOFOL 200 MG/20 ML VIAL ONE (09:43)
--- NOTE | 2020-03-12 10:46 | PRG ---
DATE OF SERVICE: SUBJECTIVE: A 74-year-old female is due to go for cardioversion today, but she is doing well. Pulmonary mcintosh, less cough and less wheezing. OBJECTIVE: VITAL SIGNS: Sats are 90% on room air, pulse 80 and irregular, respirations 18, and blood pressure 130/80. CHEST: Occasional wheeze. CARDIAC: Atrial fibrillation. ABDOMEN: Soft. ASSESSMENT: Congestive heart failure, reactive airway disease, cough. Continue on Dulera, supportive care. Job ID: [id number]
[2020-03-12] MEDS ORDERED: PROPOFOL 20 ML ONE (12:22)
--- NOTE | 2020-03-12 12:54 | PDOC.EP ---
- Subjective Date: 03/12/20 Time: 12:52 - Review of Systems Constitutional: denies: chills, fever, malaise, sweats, weakness, other Respiratory: denies: cough, dry, hemoptysis, pleuritic pain, shortness of breath, SOB with excertion, sputum, wheezing, other Cardiology: denies: chest pain, edema, heart racing, light headedness, parox ysmal noc. dyspnea, orthopnea, palpitations, passing out, pleuritic pain, pressure, swelling, other Gastrointestinal: denies: abdominal pain, constipation, diarrhea, hematochezia, melena, nausea, vomitting, other Musculoskeletal: denies: unstable gait, falls, neck pain, shoulder pain, arm pain, hand pain, leg pain, foot pain, other Neurological: denies: headache, vision changes, other - Objective Allergies/Adverse Reactions: Allergies Allergy/AdvReac Type Severity Reaction Status Date / Time amoxicillin [From Augmentin] Allergy Nausea Verified 03/04/20 10:37 clavulanic acid Allergy Nausea Verified 03/04/20 10:37 [From Augmentin] nitrofurantoin Allergy Nausea Verified 03/04/20 10:37 [From Macrobid] Current Medications Acetaminophen (Acetaminophen 325 Mg Tab) 650 mg PO Q4H PRN PRN Reason: Headache/Fever or Pain Last Admin: 03/11/20 11:32 Dose: 650 mg Documented by: Albuterol/Ipratropium (Ipratropium/Albuterol Sulfate 3 Ml Neb) 3 ml NEB Q6H PRN PRN Reason: Dyspnea/Wheezing/SOB Apixaban (Apixaban 5 Mg Tab) 5 mg PO BID [facility] Last Admin: 03/12/20 07:50 Dose: Not Given Documented by: Atorvastatin Calcium (Atorvastatin Calcium 10 Mg Tab) 10 mg PO [facility] Last Admin: 03/11/20 21:13 Dose: 10 mg Documented by: Benzonatate (Benzonatate 100 Mg Cap) 100 mg PO TIDPRN PRN PRN Reason: Cough Calcium Carbonate (Calcium Carbonate 500 Mg Chewtab) 1,000 mg PO Q4H PRN PRN Reason: Heartburn or Indigestion Last Admin: 03/11/20 11:32 Dose: 1,000 mg Documented by: Calcium/Vitamin D (Calcium Carbonate 600 Mg + Vit D Tab) 1 tab PO BID [facility] Last Admin: 03/12/20 08:04 Dose: 1 tab Documented by: Cefdinir (Cefdinir 300 Mg Cap) 300 mg PO BID [facility] Stop: 03/12/20 21:01 Last Admin: 03/12/20 08:02 Dose: 300 mg Documented by: Dofetilide (Dofetilide 0.125 Mg Cap) 0.25 mg PO Q12HR [facility] Last Admin: 03/12/20 08:03 Dose: 0.25 mg Documented by: Furosemide (Furosemide 20 Mg Tab) 40 mg PO 0900,1400 [facility] Last Admin: 03/12/20 08:03 Dose: 40 mg Documented by: Gabapentin (Gabapentin 300 Mg Cap) 300 mg PO [facility] Last Admin: 03/11/20 21:12 Dose: 300 mg Documented by: Lisinopril (Lisinopril 20 Mg Tab) 20 mg PO QAM [facility] Last Admin: 03/12/20 08:03 Dose: 20 mg Documented by: Magnesium Oxide (Magnesium Oxide 400 Mg Tab) 400 mg PO QAM [facility] Last Admin: 03/12/20 08:03 Dose: 400 mg Documented by: Mometasone Furoate/Formoterol Fumar (Mometasone 200 Mcg/Formoterol 5 Mcg 120 Puff Inhaler) 2 puff INH BID-RT [facility] Last Admin: 03/12/20 06:38 Dose: 2 puff Documented by: Multivitamins (Multivit, Therapeutic 1 Tab) 1 tab PO DAILY [facility] Last Admin: 03/12/20 08:04 Dose: 1 tab Documented by: Multivitamins/Minerals (Vit A,C & E/Lutein/Minerals Tablet) 1 tab PO BID [facility] Last Admin: 03/12/20 08:03 Dose: 1 tab Documented by: Pantoprazole Sodium (Pantoprazole 40 Mg Tab) 40 mg PO DAILY [facility] Stop: 03/19/20 09:01 Last Admin: 03/12/20 08:04 Dose: 40 mg Documented by: Polyethylene Glycol (Polyethylene Glycol 3350 17 Gm Packet) 17 gm PO DAILYPRN PRN PRN Reason: Constipation Potassium Chloride (Potassium Chloride 20 Meq Tab) 40 meq PO BID-WM [facility] Last Admin: 03/12/20 09:35 Dose: Not Given Documented by: Pramipexole Dihydrochloride (Pramipexole Di-Hcl 1 Mg Tab) 1.5 mg PO [facility] Last Admin: 03/11/20 21:13 Dose: 1.5 mg Documented by: Propylene Glycol (Polyethylene Glycol Opth Drop 15 Ml Bot) 1 drop EA EYE BID [facility] Last Admin: 03/12/20 08:02 Dose: Not Given Documented by: Sodium Chloride (Flush - Normal Saline 10 Ml Syringe) 10 ml IVF Q12HR [facility] Last Admin: 03/12/20 08:02 Dose: 10 ml Documented by: Sodium Chloride (Flush - Normal Saline 10 Ml Syringe) 10 ml IVF PRN PRN PRN Reason: Saline Flush Spironolactone (Spironolactone 25 Mg Tab) 25 mg PO QAM-WM [facility] Last Admin: 03/12/20 08:04 Dose: 25 mg Documented by: Sucralfate (Sucralfate 1 Gm Tab) 1 gm PO Q8HR [facility] Stop: 03/19/20 22:01 Last Admin: 03/12/20 05:44 Dose: Not Given Documented by: Vital Signs & Weight: Vital Signs Temp Pulse Resp BP Pulse Ox 03/12/20 11:09 98.4 F 83 16 161/83 H 97 03/12/20 07:34 98.5 F 70 16 155/81 H 96 03/12/20 06:40 92 L 03/12/20 06:38 72 20 92 L 03/12/20 04:00 99.1 F 69 16 129/60 93 L Weight 200 lb 3.2 oz I/O: I/O 03/11/20 03/12/20 03/13/20 06:59 06:59 06:59 Intake Total 1410 545 Output Total 2750 1200 Balance -1340 -035 - Quality Measures Condition: Atrial Fibrillation/Flutter (hx or current) CV meds: Eliquis: Yes - Physical Exam General: alert & oriented x3, appears well Neck: supple neck, no JVD/HJR Cardiology: regular rate and rhythm, no murmur Lungs: clear to auscultation, no wheezes Neurology: grossly intact Abdomen: unremarkable, soft, non-tender Extremities: warm. negative: + edema B Skin: groin sites stable Musculoskeletal: no pain - Chadsvasc Risk factors Congestive heart failure: 1 Hypertension: 1 Age >75: 2 Female: 1 Risk Score: 5 - Labs Result Diagrams: 03/12/20 05:08 03/12/20 05:08 - EKG Interpretation EKG Method: 12 Lead EKG shows: Sinus rhythm, Atrial fibrillation - Assessment/Plan Assessment/Plan: 1. Persistent atrial fibrillation -s/p redo PVAI 03/05/20 with early recurrence 2. Congestive heart failure post ablation -LVEF 60-65% in past and current ECHO on dopamin. 3. Low grade fever on POD#1. - resolved. BCX sent 03/07 am. 4. Shortness of breath -improving - O2 via NC 5. TIMMY -resovled 6.Hypomagnesemia -goal >2.0 7.Hypokalemia -KCl 40 BID ordered -goal >4.0 Tikosyn loading continues. QTc increased significantly after 1st 500mcg dose. Reduced to 250mcg BID. K & Mg low. replacement given. 4th dose QTc acceptable now~ 450msec. CV performed today - in SR. QTc 450 post CV. K & Mg rechecked post replacement. k 3.8 and Mag 1.7 Continue replacement. Plan to D/C today or am as per primary team. Will see her in 6 weeks @ office.
[2020-03-12] MEDS ORDERED: Furosemide 40 MG/4 ML VIAL SLOW IVP SCH (15:45)
[2020-03-12] MEDS: Carvedilol 6.25 MG TAB PO SCH (16:26)
--- NOTE | 2020-03-12 17:32 | OP ---
DATE OF PROCEDURE: 03/12/2020 PROCEDURE PERFORMED: Elective cardioversion. INDICATIONS FOR PROCEDURE: Ms. Dorsey is a 74-year-old woman with history of persisting atrial fibrillation, prior pulmonary venous isolation procedure, and Watchman device placement in the past, who underwent a redo pulmonary venous isolation procedure on March 05, 2020, had developed postprocedure heart failure like symptoms. Eventually, optimized atrial fibrillation also recurred with this. She was started on Tikosyn, currently on 250 mcg twice a day dose. She was referred for those. She is here for a planned cardioversion. DESCRIPTION OF PROCEDURE: The patient received deep sedation by Anesthesia specialist. After adequate level of sedation achieved, a synchronized 150-joule shock promptly converted the patient back to sinus rhythm. CONCLUSION: Successful cardioversion. PLAN: Continue monitoring for recurrent arrhythmias. Continue oral anticoagulation for at least 6 to 3 months post ablation. Job ID: [id number]
[2020-03-12] MEDS: Atorvastatin Calcium 10 MG TAB PO SCH (20:55)
[2020-03-12] MEDS: Gabapentin 300 MG CAP PO SCH (20:55)
[2020-03-12] MEDS: Pramipexole Di-HCl 1 MG TAB PO SCH (20:56)
[2020-03-13 05:24] LABS: Anion Gap 13 mmol/L (10-20); BUN (Urea Nitrogen) 24 mg/dL (9.8-20.1); Calc. Creatinine Clearance 76 mL/min (70-130); Calcium 9.1 mg/dL (7.8-10.44); Carbon Dioxide 37 mmol/L (23-31); Chloride 94 mmol/L (98-107); Estimated GFR-MDRD 62; Glucose 124 mg/dL (83-110); Magnesium 1.8 mg/dL (1.6-2.6); Potassium 4.3 mmol/L (3.5-5.1); Sodium 140 mmol/L (136-145)
--- NOTE | 2020-03-13 05:35 | PDOC.FM ---
- Subjective Subjective: Patient denied chest pain, abdominal pain, and SOB. She remains in SR after CV yesterday. Patient is, understandably, very eager to go home today. - Objective MAR Reviewed: Yes Vital Signs & Weight: Vital Signs (12 hours) Temp Pulse Resp BP Pulse Ox 03/13/20 03:39 98.1 F 67 16 129/60 95 03/13/20 00:00 92 L 03/12/20 23:22 98.5 F 74 16 110/56 L 92 L 03/12/20 20:00 94 L 03/12/20 19:44 98.4 F 63 16 117/55 L Weight Weight 88.632 kg Most Recent Monitor Data Heart Rate from ECG 66 NIBP 114/44 NIBP BP-Mean 67 Respiration from ECG 25 SpO2 100 I&O: 03/11/20 03/12/20 03/13/20 06:59 06:59 06:59 Intake Total 1410 545 800 Output Total 2750 1200 2100 Balance -4032 -704 -2587 Result Diagrams: 03/12/20 05:08 03/13/20 04:48 EKG Reviewed by me: Yes (SR 60-70) Phys Exam - Physical Examination Constitutional: NAD HEENT: moist MMs Neck: supple, full ROM Respiratory: no wheezing, no rales, clear to auscultation bilateral Cardiovascular: RRR, no significant murmur Gastrointestinal: soft, non-tender, positive bowel sounds trace edema Neurological: non-focal Psychiatric: normal affect Skin: no rash Dx/Plan - Plan Plan: 1. Acute Hypoxic Respiratory Failure 2/2 Likely Right Heart Failure : -Currently on 3LNC, required BIPAP overnight -BNP 500s > 800s > 600s -s/p IV lasix BID --> now on PO lasix BID, given additional 40 mg IV lasix yeste rday -required 1-2 L NC overnight, not on O2 at home -In setting of hypotension, 2D echo done per Ye and no s/sx of pericardial effusion, does report RA/RV/IVC/LA dilation with increased pulmonary artery pressure -ABG with pH 7.33, pCO2 46.4, pO2 162, Bicarb 24, respiratory acidosis with secondary metabolic acidosis -Repeat CXR (03/09): cardiomegaly, bibasilar infiltrates; could be CHF but pneu monitits not ruled out -cardiology and pulm consulted, appreciate recs * Dr. Inman - transition to PO lasix, added spironolactone; discharge with 40 mg PO lasix, spironolactone, and 20 meq of K; will need repeat BMP in 1 week * Dr. Hancock - on cefdinir until 03/12; DC with inhaler -Dr. Belcher * added tikosyn for atrial fibrillation * CV around noon on 03/12 * replace electrolytes prior to procedure if K < 4 and Mag < 2 * s/p successful CV * will DC on tikosyn (called in by Dr. Belcher), eliquis, protonix, carafate, and coreg 6.25 BID -PT consulted to work with patient -nursing to wean O2 as tolerated, will likely DC home today once off O2 2. SIRS without a source: -Hypotensive requiring dopamine at 2.5mcg/min, dopamine stopped at 0615 on 03/08, will monitor pressures -fever up to 100.4, tachypnea and hypoxia on NC -Pre-op COVID on 02/28 negative, repeat negative -CXR without infiltrate, repeat today (03/09) shows CHF vs. pneumonitis -Blood cx, urine cx: NG @ 48 hrs -Procal: 0.27 -Cefepime dc'd on 03/09 -Dr. Hancock - s/p Cefdinir x3 days (03/09 - 03/12); DC with inhaler 3. TIMMY, resolved -unsure of cause, likely cardiorenal -Cr: 1.55 > 1.08 > 0.87 > 0.80 > 0.76 > 0.88 -BUN: 32 > 27 > 37 > 25 > 21 > 24 -will continue to monitor 4. Afib s/p Ablation, in Afib but rate controlled -Dr. Belcher discontinued Flecainide 03/07, started on tikosyn on 03/10 -s/p successful CV on 03/12 -Eliquis BID per his recs 5. NSTEMI, type 2 -Likely 2/2 recent ablation -No active CP -EKG showed afib with T wave inversions in the anterolateral leads 6. HTN: -started on home lisinopril as BPs are now elevated -coreg 6.25mg BID 7. RLS: -Resume home gabapentin 8. GERD: -Resume home protonix Dispo: likely DC home today once off O2, will likely need outpatient sleep study Addendum - Attending - Attending Attestation Date/Time: 03/13/20 5494 I personally evaluated the patient and discussed the management with Dr. Pardo. I agree with the History, Examination, Assessment and Plan documented above with any addition or exceptions noted below. Patient is feeling much better. She did get O2 overnight but we removed it and her O2 sats are 95% even with ambulation. Will d/c home and f/up with me next week.
[2020-03-13] MEDS ORDERED: Magnesium 2 GM/50 ML 2 GM in Premix Bag 1 BAG IVPB SCH (06:30)
[2020-03-13] MEDS: Sucralfate 1 GM TAB PO SCH ×2 (06:33→15:07)
[2020-03-13] MEDS: Mometasone 200 MCG/Formoterol 5 MCG 120 PUFF INHALER INH SCH ×2 (08:06→18:33)
[2020-03-13] MEDS: Dofetilide 0.125 MG CAP PO SCH (09:09)
[2020-03-13] MEDS: Magnesium Oxide 400 MG TAB PO SCH (09:09)
[2020-03-13] MEDS: Vit A,C & E/Lutein/Minerals Tablet PO SCH (09:09)
[2020-03-13] MEDS: Calcium Carbonate 600 MG + Vit D TAB PO SCH (09:10)
[2020-03-13] MEDS: Furosemide 20 MG TAB PO SCH ×2 (09:10→15:07)
[2020-03-13] MEDS: Lisinopril 20 MG TAB PO SCH (09:10)
[2020-03-13] MEDS: Potassium Chloride 20 MEQ TAB PO SCH ×2 (09:10→18:22)
[2020-03-13] MEDS: Multivit, Therapeutic 1 TAB PO SCH (09:10)
[2020-03-13] MEDS: Carvedilol 6.25 MG TAB PO SCH ×2 (09:10→18:22)
[2020-03-13] MEDS: Spironolactone 25 MG TAB PO SCH (09:11)
[2020-03-13] MEDS: Apixaban 5 MG TAB PO SCH (09:11)
[2020-03-13] MEDS: Polyethylene Glycol OPTH DROP 15 ML BOT EA EYE SCH (09:11)
[2020-03-13 15:51] VITALS: TEMP 99.5
[2020-03-13] MEDS ORDERED: Dofetilide 0.125 MG CAP PO SCH (18:15)
[2020-03-13 18:24] VITALS: BP 121/58
--- NOTE | 2020-03-16 16:12 | DIS ---
DATE OF ADMISSION: 03/07/2020 DATE OF DISCHARGE: 03/13/2020 RESIDENT: Christel Pardo MD ADMITTING PHYSICIAN: John Belcher MD DISCHARGE ATTENDING: Beverley Plascencia MD CONSULTS: 1. Cardiology, Dr. Inman. 2. Pulmonology, Dr. Hancock. PROCEDURE/IMAGES: Electrophysiology study and radiofrequency ablation. Chest x-ray on 03/07/2020, cardiomegaly with mild vascular congestion. Bilateral effusions and bibasilar infiltrates and/or atelectasis. Echocardiogram on 03/07/2020, left ventricular size normal. EF estimated at 60% to 65%. Atrial fibrillation. Left atrium, moderately to severely dilated. [id number] mitral regurgitation. [id number] aortic regurgitation. No aortic stenosis. Moderate tricuspid regurgitation. Moderately elevated pulmonary artery pressure. Trace pericardial fluid. Chest x-ray on 03/09/2020, cardiomegaly, bibasilar infiltrates, and other findings are stable. Possibly related to CHF, although a superimposed basilar pneumonitis must be considered. Elective cardioversion on 03/12/2020, successful cardioversion. PRIMARY DIAGNOSIS: Acute hypoxic respiratory failure secondary to right heart failure. SECONDARY DIAGNOSES: 1. Systemic inflammatory response syndrome. 2. Acute kidney injury. 3. Atrial fibrillation. 4. Non-ST elevation myocardial infarction, type 2. 5. Hypertension. 6. Gastroesophageal reflux disease. DISCHARGE MEDICATIONS: 1. Lisinopril 20 mg p.o. q.a.m. 2. Magnesium oxide 400 mg p.o. q.a.m. 3. Calcium carbonate plus vitamin D one tab p.o. b.i.d. 4. Protonix 40 mg p.o. q.a.m. 5. Multivitamin one capsule p.o. q.a.m. 6. Lipitor 10 mg p.o. at bedtime. 7. Gabapentin 300 mg p.o. at bedtime. 8. Furosemide 40 mg daily. 9. Mirapex 1.5 mg p.o. at bedtime. 10. Alendronate one tab p.o. every 7 days. 11. PreserVision soft gel one capsule p.o. b.i.d. 12. Systane eye drops, one drop each eye twice a day. 13. Eliquis 5 mg b.i.d. 14. Carafate 1 g p.o. q.8 hours. 15. Spironolactone 25 mg p.o. q.a.m. with meals. 16. Dulera two puffs inhaled twice a day. 17. Carvedilol 6.25 mg p.o. b.i.d. with meals. 18. Potassium chloride 20 mEq p.o. daily. DISCONTINUED MEDICATIONS: Carvedilol 12.5 mg p.o. b.i.d., which changed to 6.25 mg p.o. b.i.d. HISTORY OF PRESENT ILLNESS/HOSPITAL COURSE: The patient is a 74-year-old female with past medical history of hypertension, atrial fibrillation, GERD, and RLS, who presented for outpatient ablation on 03/[address] Belcher, who had an uneventful postoperative course. According to the chart, she did not initially convert out of atrial fibrillation after the procedure and was having some shortness of breath and fever of 100.4. A Code Green was called because the patient became hypoxic, dyspneic, and hypotensive. She had a chest x-ray at that time that showed vascular congestion, troponins that were elevated, and elevated BNP. She also had an ABG that showed respiratory acidosis. She was placed on BiPAP that night as well as dopamine and moved to the CCU. On 03/07/2020, she was placed on nasal cannula, but continued to have dyspnea. Her COVID test was negative. Both Dr. Inman and Dr. Hancock were consulted for further help and the Family Medicine Team was asked to admit the patient to their service. The patient initially received IV Lasix twice a day and was transitioned to p.o. Lasix twice a day with the addition of spironolactone. The patient was initially treated with cefepime, cefepime that was discontinued on 03/09. She then underwent treatment with cefdinir for 3 days from 03/09 to 03/12. Dr. Hancock recommended that the patient be discharged with the Dulera inhaler. The patient's blood culture and urine culture showed no growth at 48 hours. The patient's dopamine was stopped on 03/08 and her pressures remained stable thereafter. Dr. Belcher added Tikosyn to treat her atrial fibrillation and the patient underwent successful cardioversion on 03/12. The patient worked with PT while hospitalized and was able to wean her O2 requirements to her baseline of no oxygen. On the day of discharge, Dr. Belcher recommended that the patient be discharged with Eliquis, Protonix, Carafate, and Coreg 6.25 twice a day. He also continued the patient on Tikosyn. Dr. Inman recommended that the patient be discharged home with 40 mg of p.o. Lasix, spironolactone, and 20 mEq of potassium with a repeat BMP in [address] Hancock recommended that the patient be discharged home with the Dulera inhaler. The patient also experienced an acute kidney injury, which was likely secondary to cardiorenal syndrome. Her kidney function returned to normal with a creatinine of 0.88 on day of discharge. The patient's blood pressure medicine of lisinopril was restarted and her carvedilol dose was decreased as mentioned above. The patient also suffered an NSTEMI type 2, which was likely secondary to her ablation. On day of discharge, the patient was stable and was not requiring any oxygen. DISPOSITION: Stable. DISCHARGE LOCATION: Home. DIET: Heart healthy. ACTIVITY: As tolerated. FOLLOW UP: Followup with Dr. Beverley Plascencia in [address] Belcher in 6 weeks. Job ID: [id number]
--- NOTE | 2020-03-18 19:43 | EKG ---
Test Reason : Blood Pressure : / mmHG Vent. Rate : 062 BPM Atrial Rate : 312 BPM P-R Int : 000 ms QRS Dur : 102 ms QT Int : 410 ms P-R-T Axes : 000 -12 031 degrees QTc Int : 416 ms Atrial fibrillation T wave abnormality, consider anterior ischemia or digitalis effect Abnormal ECG Confirmed by CHIQUITA MACK (2) on 03/18/2020 7:43:12 PM Referred By: BRITNEY Confirmed By:CHIQUITA MACK
--- NOTE | 2020-03-18 19:44 | EKG ---
Test Reason : STAT Blood Pressure : / mmHG Vent. Rate : 069 BPM Atrial Rate : 069 BPM P-R Int : 000 ms QRS Dur : 092 ms QT Int : 484 ms P-R-T Axes : 000 -17 001 degrees QTc Int : 518 ms Atrial fibrillation Nonspecific T wave abnormality , probably digitalis effect Prolonged QT Abnormal ECG When compared with ECG of 10-MAR-2020 12:31, (Unconfirmed) Nonspecific T wave abnormality, worse in Lateral leads QT has lengthened Confirmed by CHIQUITA MACK (2) on 03/18/2020 7:44:12 PM Referred By: Confirmed By:CHIQUITA MACK
== END 2020-03-13 18:55 | disposition home or self-care (01) | DRG 273 ==
LOC: CCL 08:26 → 2NO 10:00 → CCU 03-07 03:38 → OBSVTOIN 03-07 10:16 → 2SE 03-09 10:29
PROVIDERS: ADMIT Internal Medicine Cardiovascular Disease; ATTEND Internal Medicine Cardiovascular Disease
PROC: 5A09357 Assistance with Respiratory Ventilation, Less than 24 Consecutive Hours, Continuous Positive Airway Pressure (ICD-10-PCS; 2020-03-07)
PROC: 02583ZZ Destruction of Conduction Mechanism, Percutaneous Approach (ICD-10-PCS; 2020-03-07)
PROC: 02K83ZZ Map Conduction Mechanism, Percutaneous Approach (ICD-10-PCS; 2020-03-07)
PROC: 4A023FZ Measurement of Cardiac Rhythm, Percutaneous Approach (ICD-10-PCS; 2020-03-07)
PROC: 4A0234Z Measurement of Cardiac Electrical Activity, Percutaneous Approach (ICD-10-PCS; 2020-03-07)
PROC: 5A2204Z Restoration of Cardiac Rhythm, Single (ICD-10-PCS; principal; 2020-03-12)
DX: I13.0 Hypertensive heart and chronic kidney disease with heart failure and stage 1 through stage 4 chronic kidney disease, or unspecified chronic kidney disease (principal); J96.21 Acute and chronic respiratory failure with hypoxia; I21.A1 Myocardial infarction type 2; I50.33 Acute on chronic diastolic (congestive) heart failure; E87.2 Acidosis; N17.9 Acute kidney failure, unspecified; I48.19 Other persistent atrial fibrillation; I47.1 Supraventricular tachycardia; R65.10 Systemic inflammatory response syndrome (SIRS) of non-infectious origin without acute organ dysfunction; G25.81 Restless legs syndrome; Z20.828 Contact with and (suspected) exposure to other viral communicable diseases; E66.01 Morbid (severe) obesity due to excess calories; K21.9 Gastro-esophageal reflux disease without esophagitis; I50.810 Right heart failure, unspecified; I27.20 Pulmonary hypertension, unspecified; G89.4 Chronic pain syndrome; Z96.652 Presence of left artificial knee joint; I95.9 Hypotension, unspecified; R00.1 Bradycardia, unspecified; E87.6 Hypokalemia; E83.42 Hypomagnesemia; Z88.1 Allergy status to other antibiotic agents; Z90.710 Acquired absence of both cervix and uterus; Z90.49 Acquired absence of other specified parts of digestive tract; Z68.31 Body mass index [BMI] 31.0-31.9, adult
CPT/HCPCS: 36415; 36600; 71045; 76942; 80048; 81015; 82565; 82570; 82805; 83735; 83880; 84145; 84484; 84540; 85014; 85018; 85025; 85049; 85347; 87040; 87086; 87635; 92960; 93005; 93010; 93306; 93613; 93623; 93655; 93656; 93657; 93662; 94640; 94660; C1732; C1759; C1884; J0692; J1265; J1644; J1940; J2001; J2250; J2405; J2704; J2720; J3010; J3475; J3490; J7030; J7620; J8499; U0003

== ENCOUNTER 2020-10-22 07:55 | Emergency (ER) | payer MEDICARE ==
[2020-10-22 08:32] LABS: #Eosinphils 0.2 thou/uL (0.0-0.7); #Lymphocytes 0.9 thou/uL (1.20-3.40); #Monocytes 0.4 thou/uL (0.11-0.59); #Neutrophils 5.5 thou/uL (1.40-6.50); %Basophils 0.2 % (0.0-1.0); %Eosinophils 3.1 % (0.0-10.0); %Lymphocytes 12.2 % (21.0-51.0); %Monocytes 5.9 % (0.0-10.0); %Neutrophils 78.6 % (42.0-75.0); Hemoglobin 11.4 g/dL (12.0-16.0); Mean Corpuscular HGB CONC 34.8 g/dL (32.0-36.0); Mean Corpuscular Hemoglobin 33.9 pg (27.0-31.0); Mean Corpuscular Volume 97.6 fL (78.0-98.0); Mean Platelet Volume 7.5 fL (7.4-10.4); Platelet Count 193 thou/uL (130-400); RBC Distribution Width 15.7 % (11.5-14.5); Red Blood Cell (RBC) Count 3.36 mill/uL (4.20-5.40); White Blood Cell (WBC) Count 7.1 thou/uL (4.8-10.8)
[2020-10-22 08:52] LABS: ALT (SGPT) 19 U/L (8-55); AST (SGOT) 19 U/L (5-34); Albumin 4.4 g/dL (3.4-4.8); Alkaline Phosphatase 61 U/L (40-110); Anion Gap 17 mmol/L (10-20); BUN (Urea Nitrogen) 41 mg/dL (9.8-20.1); Bilirubin, Total 1.1 mg/dL (0.2-1.2); CK (CPK) 28 U/L (29-168); Calc. Creatinine Clearance 0 mL/min (70-130); Calcium 8.5 mg/dL (7.8-10.44); Carbon Dioxide 21 mmol/L (23-31); Chloride 105 mmol/L (98-107); Globulin 2.5 g/dL (2.4-3.5); Glucose 166 mg/dL (83-110); Lipase 18 U/L (8-78); Protein, Total 6.9 g/dL (5.8-8.1); Sodium 138 mmol/L (136-145)
[2020-10-22 08:53] LABS: Acetaminophen Less than 6.0 mcg/mL (10.0-30.0); Alcohol Less than 10 mg/dL (Less than 10); Salicylate Less than 8.0 mg/dL (15.0-30.0)
[2020-10-22 11:28] LABS: Bilirubin Negative (Negative); Blood, Urine Negative (Negative); Clarity Clear (Clear); Glucose, Urine (Dipstick) Normal (Negative); Ketone, Urine Negative (Negative); Leukocyte Negative Leu/uL (Negative); Nitrite Negative (Negative); Protein, Urine (Dipstick) Negative (Neg-Trace); Specific Gravity, Urine 1.017 (1.002-1.036); Urobilinogen Normal mg/dL (Less than 2)
[2020-10-22 11:36] LABS: Amphetamine Not Detected (NotDetected); Barbiturates Screen Not Detected (NotDetected); Benzodiazepine Screen Not Detected (NotDetected); Cocaine Metabolite Screen Not Detected (NotDetected); Medtox Control Line Valid? VALID (VALID); Medtox Reader # READER 1; Methadone Not Detected (NotDetected); Methamphetamine Not Detected (NotDetected); Opiate Screen Not Detected (NotDetected); Oxycodone Screen Not Detected (NotDetected); Phencyclidine (PCP) Not Detected (NotDetected); THC/Cannabinoid Screen Not Detected (NotDetected); Tricyclic Screen Not Detected (NotDetected)
== END 2020-10-22 12:19 | disposition home or self-care (01) ==
LOC: ERS 07:55
DX: R00.2 Palpitations (principal); R53.1 Weakness; I10 Essential (primary) hypertension; K21.9 Gastro-esophageal reflux disease without esophagitis; I48.91 Unspecified atrial fibrillation; Z87.19 Personal history of other diseases of the digestive system; Z87.891 Personal history of nicotine dependence; Z79.899 Other long term (current) drug therapy; Z79.01 Long term (current) use of anticoagulants
CPT/HCPCS: 36415; 71045; 80053; 80306; 80307; 81003; 82550; 83690; 83880; 84484; 85025; 85379; 86850; 86900; 86901; 93005

== ENCOUNTER 2020-11-21 11:54 | Outpatient (CLI) | payer MEDICARE ==
[2020-11-21 13:07] LABS: Hemoglobin 11.1 g/dL (12.0-15.5); Mean Corpuscular HGB CONC 32.1 g/dL (32.0-36.0); Mean Corpuscular Hemoglobin 31.8 pg (27.0-33.0); Mean Corpuscular Volume 99.1 fl (81.6-98.3); Mean Platelet Volume 10.5 fl (7.4-10.4); Platelet Count 215 10x3/uL (150-450); RBC Distribution Width 15.6 % (11.5-14.5); Red Blood Cell (RBC) Count 3.49 10x6/uL (3.90-5.03); White Blood Cell (WBC) Count 6.9 10x3/uL (3.5-10.5)
[2020-11-21 13:22] LABS: Anion Gap 14 mmol/L (10-20); BUN (Urea Nitrogen) 43 mg/dL (9.8-20.1); Calc. Creatinine Clearance 0 mL/min (70-130); Calcium 10.1 mg/dL (7.8-10.44); Carbon Dioxide 24 mmol/L (23-31); Chloride 108 mmol/L (98-107); Glucose 105 mg/dL (83-110); Potassium 5.7 mmol/L (3.5-5.1); Sodium 140 mmol/L (136-145)
[2020-11-21 13:23] LABS: INR-International Normal Ratio 1.1; PTT 30.5 sec (22.0-33.0); Prothrombin Time 12.4 sec (9.5-12.1)
[2020-11-22 19:32] LABS: SARS-CoV-2 PCR by NAA Not Detected (NotDetected)
== END 2020-11-21 11:55 | disposition home or self-care (01) ==
LOC: LABBT 11:54
PROVIDERS: ATTEND Internal Medicine Cardiovascular Disease
DX: Z01.812 Encounter for preprocedural laboratory examination (principal); I48.91 Unspecified atrial fibrillation; Z20.822 Contact with and (suspected) exposure to COVID-19
CPT/HCPCS: 80048; 85027; 85610; 85730; U0003; U0005

== ENCOUNTER → 2020-11-26 | Day surgery (SDC) | payer MEDICARE ==
[2020-11-24 14:26] VITALS: BMI 29.8
[~2020-11-26] MED LIST: Fentanyl 100 MCG/2 ML VIAL ONE; Heparin 10,000 UNITS/ 10 ML VIAL ONE; Isoproterenol 0.2 MG/1 ML AMP ONE; PROPOFOL 200 MG/20 ML VIAL ONE; Phenylephrine 10 MG/ML VIAL ONE; Protamine Sulfate 50 MG/5 ML VIAL ONE; Rocuronium Bromide 10 MG/ML (10ML VIAL) ONE; SUGAMMADEX SODIUM 200 MG/2 ML VIAL ONE
== END ==
LOC: CCL 09:13
PROVIDERS: ATTEND Internal Medicine Cardiovascular Disease
PROC: 02583ZZ Destruction of Conduction Mechanism, Percutaneous Approach (ICD-10-PCS; principal; 2020-11-26)
PROC: 02K83ZZ Map Conduction Mechanism, Percutaneous Approach (ICD-10-PCS; 2020-11-26)
PROC: 4A023FZ Measurement of Cardiac Rhythm, Percutaneous Approach (ICD-10-PCS; 2020-11-26)
PROC: 4A0234Z Measurement of Cardiac Electrical Activity, Percutaneous Approach (ICD-10-PCS; 2020-11-26)
PROC: B244ZZZ Ultrasonography of Right Heart (ICD-10-PCS; 2020-11-26)
PROC: 5A2204Z Restoration of Cardiac Rhythm, Single (ICD-10-PCS; 2020-11-26)
DX: I48.11 Longstanding persistent atrial fibrillation (principal); I48.92 Unspecified atrial flutter; I11.0 Hypertensive heart disease with heart failure; I50.30 Unspecified diastolic (congestive) heart failure; E78.5 Hyperlipidemia, unspecified; Z87.11 Personal history of peptic ulcer disease; Z79.01 Long term (current) use of anticoagulants; Z79.899 Other long term (current) drug therapy; Z88.0 Allergy status to penicillin; Z88.1 Allergy status to other antibiotic agents; Z95.2 Presence of prosthetic heart valve
CPT/HCPCS: 76942; 85347; 92960; 93005; 93613; 93623; 93655; 93656; 93657; 93662; C1732; C1759; C1884; J1644; J2370; J2704; J2720; J3010

== ENCOUNTER 2021-02-23 18:56 | Inpatient (IN) | payer MEDICARE ==
[2021-02-23 20:13] VITALS: BMI 31.8
[2021-02-23] MEDS ORDERED: Electrolyte Replacement Protocol FS PRN (20:45)
[2021-02-23] MEDS ORDERED: Dofetilide 0.25 MG CAP PO SCH (21:00)
[2021-02-23] MEDS ORDERED: Gabapentin 300 MG CAP PO SCH ×2 (21:00→22:16)
[2021-02-23] MEDS: Polyethylene Glycol OPTH DROP 15 ML BOT EA EYE SCH (21:28)
[2021-02-23] MEDS: Apixaban 5 MG TAB PO SCH (21:29)
[2021-02-23] MEDS: Carvedilol 6.25 MG TAB PO SCH ×2 (21:29→21:32)
[2021-02-23] MEDS: Atorvastatin Calcium 10 MG TAB PO SCH (21:29)
[2021-02-23 21:30] LABS: INR-International Normal Ratio 1.7; PTT 53.7 sec (22.9-36.1); Prothrombin Time 20.7 sec (12.0-14.7)
[2021-02-23] MEDS: Dofetilide 0.125 MG CAP PO SCH (21:30)
[2021-02-23 21:38] LABS: Hemoglobin 9.9 g/dL (12.0-16.0); Mean Corpuscular HGB CONC 32.2 g/dL (32.0-36.0); Mean Corpuscular Hemoglobin 30.1 pg (27.0-31.0); Mean Corpuscular Volume 93.6 fL (78.0-98.0); Mean Platelet Volume 8.4 fL (7.4-10.4); Platelet Count 179 thou/uL (130-400); RBC Distribution Width 17.7 % (11.5-14.5); Red Blood Cell (RBC) Count 3.28 mill/uL (4.20-5.40); White Blood Cell (WBC) Count 6.4 thou/uL (4.8-10.8)
[2021-02-23] MEDS: Vit A,C & E/Lutein/Minerals Tablet PO SCH (21:41)
[2021-02-23 21:42] LABS: ALT (SGPT) 18 U/L (8-55); AST (SGOT) 17 U/L (5-34); Albumin 3.8 g/dL (3.4-4.8); Alkaline Phosphatase 70 U/L (40-110); Anion Gap 14 mmol/L (10-20); BUN (Urea Nitrogen) 30 mg/dL (9.8-20.1); Bilirubin, Total 1.6 mg/dL (0.2-1.2); Calc. Creatinine Clearance 58 mL/min (70-130); Calcium 8.8 mg/dL (7.8-10.44); Carbon Dioxide 25 mmol/L (23-31); Chloride 101 mmol/L (98-107); Globulin 2.7 g/dL (2.4-3.5); Glucose 183 mg/dL (83-110); Potassium 3.6 mmol/L (3.5-5.1); Protein, Total 6.5 g/dL (5.8-8.1); Sodium 136 mmol/L (136-145)
[2021-02-23 22:03] LABS: Band 4 % (5-11); Eosinophils 5 % (0-10); Lymphocytes 18 % (21-51); MDiff Complete? YES; Monocytes 5 % (0-10); Myelocyte 1 % (0-0); Neutrophil 67 % (42-75); Platelet Morphology Comment Appears Adequate; Toxic Granulation SLIGHT
[2021-02-23] MEDS: Gabapentin 300 MG CAP PO SCH (22:30)
[2021-02-23] MEDS ORDERED: Pramipexole Di-HCl 0.25 MG TAB PO SCH (22:30)
[2021-02-23] MEDS ORDERED: Potassium Chloride 20 MEQ TAB PO SCH (22:45)
[2021-02-23] MEDS ORDERED: Electrolyte Replacement Protocol 1 EACH FS PRN (22:45)
[2021-02-23 23:38] LABS: Magnesium 1.6 mg/dL (1.6-2.6)
[2021-02-24 04:54] LABS: #Eosinphils 0.2 thou/uL (0.0-0.7); #Lymphocytes 0.7 thou/uL (1.20-3.40); #Monocytes 0.5 thou/uL (0.11-0.59); #Neutrophils 3.7 thou/uL (1.40-6.50); %Basophils 0.3 % (0.0-1.0); %Eosinophils 4.5 % (0.0-10.0); %Lymphocytes 13.4 % (21.0-51.0); %Neutrophils 71.8 % (42.0-75.0); Hemoglobin 9.1 g/dL (12.0-16.0); Mean Corpuscular HGB CONC 32.5 g/dL (32.0-36.0); Mean Corpuscular Hemoglobin 30.5 pg (27.0-31.0); Mean Corpuscular Volume 93.8 fL (78.0-98.0); Mean Platelet Volume 8.1 fL (7.4-10.4); Platelet Count 160 thou/uL (130-400); Red Blood Cell (RBC) Count 2.98 mill/uL (4.20-5.40); White Blood Cell (WBC) Count 5.2 thou/uL (4.8-10.8)
[2021-02-24] MEDS ORDERED: Magnesium 2 GM/50 ML 2 GM in Premix Bag 1 BAG IVPB SCH ×2 (05:00→07:00)
[2021-02-24 05:26] LABS: Anion Gap 13 mmol/L (10-20); BUN (Urea Nitrogen) 29 mg/dL (9.8-20.1); Calc. Creatinine Clearance 79 mL/min (70-130); Calcium 8.6 mg/dL (7.8-10.44); Carbon Dioxide 26 mmol/L (23-31); Chloride 106 mmol/L (98-107); Glucose 89 mg/dL (83-110); Magnesium 1.8 mg/dL (1.6-2.6); Potassium 4.2 mmol/L (3.5-5.1); Sodium 141 mmol/L (136-145)
[2021-02-24] MEDS: Mometasone 100 MCG/Formoterol 5 MCG 120 PUFF INHALER INH SCH (06:47)
[2021-02-24] MEDS: Pramipexole Di-HCl 0.25 MG TAB PO SCH (08:48)
[2021-02-24] MEDS: Dofetilide 0.125 MG CAP PO SCH ×2 (08:48→20:29)
[2021-02-24] MEDS: Magnesium Oxide 400 MG TAB PO SCH (08:50)
[2021-02-24] MEDS: Carvedilol 6.25 MG TAB PO SCH ×2 (08:50→20:29)
[2021-02-24] MEDS: Polyethylene Glycol OPTH DROP 15 ML BOT EA EYE SCH ×2 (08:50→20:45)
[2021-02-24] MEDS: Vit A,C & E/Lutein/Minerals Tablet PO SCH ×2 (08:50→20:45)
[2021-02-24] MEDS: Spironolactone 25 MG TAB PO SCH (08:50)
[2021-02-24] MEDS: Multivitamin W/ Minerals 1 TAB PO SCH (08:50)
[2021-02-24] MEDS: FLU VACC QS2021-22(65YR UP)/PF 240 MCG/0.7 ML SYRINGE IM ONE (08:50)
[2021-02-24] MEDS: Sucralfate 1 GM TAB PO SCH (08:50)
[2021-02-24] MEDS: Apixaban 5 MG TAB PO SCH ×2 (08:50→20:28)
[2021-02-24] MEDS: Furosemide 40 MG TAB PO SCH (08:50)
[2021-02-24] MEDS ORDERED: Non-Formulary Item 1 EACH (Pramipexole Di-Hcl [Mirapex] 0.5 MG Tablet) PO SCH (09:00)
[2021-02-24] MEDS ORDERED: Melatonin 3 MG TAB PO SCH (20:00)
[2021-02-24] MEDS: Gabapentin 300 MG CAP PO SCH (20:29)
[2021-02-24] MEDS: Atorvastatin Calcium 10 MG TAB PO SCH (20:29)
[2021-02-24 21:45] LABS: SARS-CoV-2 PCR by NAA Not Detected (NotDetected)
[2021-02-25] MEDS: Mometasone 100 MCG/Formoterol 5 MCG 120 PUFF INHALER INH SCH ×2 (02:12→06:58)
[2021-02-25] MEDS: Spironolactone 25 MG TAB PO SCH (09:30)
[2021-02-25] MEDS: Dofetilide 0.125 MG CAP PO SCH (09:30)
[2021-02-25] MEDS: Carvedilol 6.25 MG TAB PO SCH (09:30)
[2021-02-25] MEDS: Multivitamin W/ Minerals 1 TAB PO SCH (09:30)
[2021-02-25] MEDS: Sucralfate 1 GM TAB PO SCH (09:30)
[2021-02-25] MEDS: Vit A,C & E/Lutein/Minerals Tablet PO SCH (09:30)
[2021-02-25] MEDS: Magnesium Oxide 400 MG TAB PO SCH (09:31)
[2021-02-25] MEDS: Apixaban 5 MG TAB PO SCH (09:31)
[2021-02-25] MEDS: Pramipexole Di-HCl 0.25 MG TAB PO SCH (09:31)
[2021-02-25] MEDS: Furosemide 40 MG TAB PO SCH (09:31)
[2021-02-25 10:11] LABS: Anion Gap 14 mmol/L (10-20); BUN (Urea Nitrogen) 20 mg/dL (9.8-20.1); Calc. Creatinine Clearance 80 mL/min (70-130); Calcium 8.8 mg/dL (7.8-10.44); Carbon Dioxide 24 mmol/L (23-31); Chloride 105 mmol/L (98-107); Glucose 141 mg/dL (83-110); Potassium 4.1 mmol/L (3.5-5.1); Sodium 139 mmol/L (136-145)
[2021-02-25 13:46] VITALS: TEMP 98.2
[2021-02-25 17:27] VITALS: BP 139/65
[2021-02-25] MEDS: FLU VACC QS2021-22(65YR UP)/PF 240 MCG/0.7 ML SYRINGE IM ONE (17:31)
== END 2021-02-25 17:45 | disposition home or self-care (01) | DRG 310 ==
LOC: ERS 18:56 → 2NO 19:54
PROVIDERS: ADMIT Internal Medicine Cardiovascular Disease; ATTEND Internal Medicine
DX: I48.0 Paroxysmal atrial fibrillation (principal); I10 Essential (primary) hypertension; E78.00 Pure hypercholesterolemia, unspecified; K21.9 Gastro-esophageal reflux disease without esophagitis; G25.81 Restless legs syndrome; E78.5 Hyperlipidemia, unspecified; Z96.652 Presence of left artificial knee joint; D64.9 Anemia, unspecified; Z20.822 Contact with and (suspected) exposure to COVID-19; Z88.1 Allergy status to other antibiotic agents; Z88.8 Allergy status to other drugs, medicaments and biological substances; Z85.828 Personal history of other malignant neoplasm of skin; Z90.49 Acquired absence of other specified parts of digestive tract; Z90.710 Acquired absence of both cervix and uterus
CPT/HCPCS: 36415; 80048; 80053; 83735; 85025; 85610; 85730; 90471; 90662; 93005; 93010; G0008; J3475; J8499; U0003; U0005

== ENCOUNTER 2023-05-16 14:52 | Emergency (ER) | payer MEDICARE ==
[2023-05-16] MEDS ORDERED: Dexamethasone 10 MG/ML VIAL ONE (15:39)
[2023-05-16] MEDS ORDERED: Azithromycin 500 MG VIAL ONE (15:40)
[2023-05-16 15:43] LABS: #Eosinphils 0.1 thou/uL (0.0-0.7); #Monocytes 0.4 thou/uL (0.11-0.59); #Neutrophils 3.8 thou/uL (1.40-6.50); %Basophils 0.2 % (0.0-1.0); %Eosinophils 2.5 % (0.0-10.0); %Lymphocytes 21.4 % (21.0-51.0); %Monocytes 6.3 % (0.0-10.0); %Neutrophils 68.2 % (42.0-75.0); Hematocrit 33.1 % (36.0-47.0); Hemoglobin 9.9 g/dL (12.0-16.0); Mean Corpuscular HGB CONC 29.9 g/dL (32.0-36.0); Mean Corpuscular Hemoglobin 29.4 pg (27.0-31.0); Mean Corpuscular Volume 98.2 fl (78.0-98.0); Mean Platelet Volume 11.7 fL (7.4-10.4); Platelet Count 180 10x3/uL (130-400); RBC Distribution Width 20.4 % (11.5-14.5); Red Blood Cell (RBC) Count 3.37 mill/uL (4.20-5.40); White Blood Cell (WBC) Count 5.5 10x3/uL (4.8-10.8)
[2023-05-16] MEDS ORDERED: Ipratropium/Albuterol 3 ML NEB ONE (16:10)
[2023-05-16 16:19] LABS: Troponin I Less than 0.010 ng/mL (< 0.028)
[2023-05-16 16:23] LABS: ALT (SGPT) 18 U/L (8-55); AST (SGOT) 20 U/L (5-34); Albumin 3.8 g/dL (3.4-4.8); Alkaline Phosphatase 76 U/L (40-110); Anion Gap 14 mmol/L (10-20); BUN (Urea Nitrogen) 24 mg/dL (9.8-20.1); Bilirubin, Total 1.7 mg/dL (0.2-1.2); Calc. Creatinine Clearance 0 mL/min (70-130); Calcium 9.5 mg/dL (7.8-10.44); Carbon Dioxide 29 mmol/L (23-31); Chloride 102 mmol/L (98-107); Estimated GFR 60; Globulin 3.1 g/dL (2.4-3.5); Glucose 88 mg/dL (83-110); Potassium 3.9 mmol/L (3.5-5.1); Protein, Total 6.9 g/dL (5.8-8.1); Sodium 141 mmol/L (136-145)
[2023-05-16 17:40] LABS: SARS-CoV-2 NAA Rapid Test Not Detected (NotDetected)
== END 2023-05-16 17:47 | disposition home or self-care (01) ==
LOC: ERS 14:52
DX: J18.9 Pneumonia, unspecified organism (principal); K21.9 Gastro-esophageal reflux disease without esophagitis; I10 Essential (primary) hypertension; E78.00 Pure hypercholesterolemia, unspecified; I48.91 Unspecified atrial fibrillation; Z87.891 Personal history of nicotine dependence; Z79.01 Long term (current) use of anticoagulants; Z79.899 Other long term (current) drug therapy
CPT/HCPCS: 0240U; 71045; 80053; 83880; 84484; 85025; 93005; 96365; 96366; 96375; 99285; J0456; 36415; J1100; J7620

== ENCOUNTER 2023-06-23 08:50 | Outpatient (CLI) | payer MEDICARE | END 2023-06-23 08:51 | disposition home or self-care (01) | LOC: BICMAMMO 08:50 | PROVIDERS: ATTEND Family Medicine | DX: Z13.820 Encounter for screening for osteoporosis (principal); Z78.0 Asymptomatic menopausal state; M85.851 Other specified disorders of bone density and structure, right thigh; M81.0 Age-related osteoporosis without current pathological fracture | CPT/HCPCS: 77080 ==